=== PATIENT | female | born 1965 | race Caucasian/White ===

== ENCOUNTER 2019-03-19 06:35 | Inpatient (IN) | payer BC ==
[2019-03-19] MEDS ORDERED: Propofol 1,000 MG/100 ML VIAL IV ONE (06:39)
[2019-03-19 06:56] LABS: Actual Bicarbonate (HCO3a) 23.2 mEq/L (22-28); Analyzer IN Cardio ER; Base Excess (BEa) -7.7 mEq/L (-2.0 to +3.0); Calcium, Ionized 1.13 mmol/L (1.12-1.30); Carboxyhemoglobin (COHb) 2.3 gm% (0.0-3.0); Hemoglobin (Hb) 14.3 g/dL (12.0-16.0); O2 Tension (PaO2) 76.9 mmHg (80.0-100.0); Potassium - ABG Lab 4.68 mmol/L (3.70-5.30)
[2019-03-19 07:00] LABS: CO2 Tension 74.2 mmHg (35.0-45.0); Puncture Site RRA; pH, Arterial 7.11 (7.35-7.45)
[2019-03-19] MEDS ORDERED: Albuterol Sulfate 2.5 mg/0.5 ml Neb ONE (07:05)
[2019-03-19] MEDS ORDERED: methylPREDNISolone Sod Succ/PF 125 MG/2 ML VIAL ONE (07:12)
[2019-03-19] MEDS ORDERED: Piperacillin/Tazobactam 4.5 GM VIAL ONE (07:12)
[2019-03-19] MEDS ORDERED: Lorazepam 2 MG/ML VIAL ONE (07:13)
[2019-03-19 07:24] LABS: Mean Corpuscular HGB CONC 32.9 g/dL (32.0-36.0); Mean Corpuscular Hemoglobin 30.2 pg (27.0-31.0); Mean Corpuscular Volume 91.7 fL (78.0-98.0); Mean Platelet Volume 7.8 fL (7.4-10.4); Platelet Count 397 thou/uL (130-400); RBC Distribution Width 13.6 % (11.5-14.5); Red Blood Cell (RBC) Count 4.29 mill/uL (4.20-5.40); White Blood Cell (WBC) Count 25.3 thou/uL (4.8-10.8)
[2019-03-19] MEDS ORDERED: Fentanyl 100 MCG/2 ML VIAL ONE (07:25)
[2019-03-19 07:49] LABS: ALT (SGPT) 41 U/L (8-55); AST (SGOT) 29 U/L (5-34); Albumin 3.9 g/dL (3.5-5.0); Alkaline Phosphatase 124 U/L (40-150); Anion Gap 17 mmol/L (10-20); BUN (Urea Nitrogen) 8 mg/dL (9.8-20.1); Bilirubin, Total 0.6 mg/dL (0.2-1.2); Calc. Creatinine Clearance 0 mL/min (70-130); Carbon Dioxide 19 mmol/L (22-29); Chloride 101 mmol/L (98-107); Estimated GFR-MDRD 75; Glucose 424 mg/dL (70-105); Potassium 5.4 mmol/L (3.5-5.1); Protein, Total 6.9 g/dL (6.0-8.3); Sodium 132 mmol/L (136-145)
[2019-03-19] MEDS ORDERED: Insulin Regular 300 UNITS/3 ML VIAL ONE (08:02)
[2019-03-19 08:05] LABS: Band 10 % (5-11); Lymphocytes 8 % (21-51); MDiff Complete? YES; Monocytes 2 % (0-10); Neutrophil 80 % (42-75); RBC Morphology Normal
[2019-03-19 08:10] LABS: CKMB 5.1 ng/mL (0-6.6)
[2019-03-19 08:10] LABS: Actual Bicarbonate (HCO3a) 21.8 mEq/L (22-28); Analyzer IN Cardio ER; Base Excess (BEa) -7.2 mEq/L (-2.0 to +3.0); CO2 Tension 59.9 mmHg (35.0-45.0); Calcium, Ionized 1.07 mmol/L (1.12-1.30); Carboxyhemoglobin (COHb) 1.8 gm% (0.0-3.0); O2 Tension (PaO2) 80.9 mmHg (80.0-100.0); Potassium - ABG Lab 4.64 mmol/L (3.70-5.30)
[2019-03-19 08:19] LABS: Puncture Site RBA; pH, Arterial 7.18 (7.35-7.45)
[2019-03-19 08:20] LABS: ALV-art Gradient 343.325 (0-20)
--- NOTE | 2019-03-19 08:32 | RAD ---
PORTABLE CHEST: INDICATION: Dyspnea. COMPARISON: 08/06/2012. FINDINGS: ET tube is in position with tip above dayna. There are bilateral confluent alveolar infiltrates see n in both perihilar regions extending into peripheral mid lung burton bilaterally. Vascular congesti on and cardiomegaly. IMPRESSION: Confluent bilateral perihilar alveolar infiltrates. Cardiomegaly and mild vascular congestion. POS: OFF
[2019-03-19 09:47] LABS: Bilirubin Negative (Negative); Blood, Urine Negative (Negative); Clarity Clear (Clear); Glucose, Urine (Dipstick) Greater than 1000 mg/dL (Negative); Leukocyte Negative Leu/uL (Negative); Nitrite Negative (Negative); Protein, Urine (Dipstick) Negative (Neg-Trace); Urobilinogen Normal mg/dL (Less than 2)
[2019-03-19] MEDS ORDERED: SYSTANE 3.5 GM TUBE EA EYE PRN (10:42)
[2019-03-19] MEDS ORDERED: Ventilator Sedation Protocol 1 EACH FS ONE (10:49)
[2019-03-19] MEDS ORDERED: Dextrose 5% in Water 1,000 ML IV PRN (10:51)
[2019-03-19] MEDS ORDERED: Dextrose 50% Abboject 50 ML SYRINGE SLOW IVP PRN (10:51)
[2019-03-19] MEDS ORDERED: cefTRIAXone\\ROCEPHIN 2 GM in Sodium Chloride 0.9% 100 ML IVPB SCH (11:00)
[2019-03-19] MEDS ORDERED: Fentanyl BOLUS 250 ML IVPB PRN (11:07)
[2019-03-19] MEDS ORDERED: DISCONTINUE PREVIOUS NARCOTIC PAIN MEDICATIONS AND BENZODIAZEPINES FS SCH (11:07)
[2019-03-19] MEDS ORDERED: Morphine 2 MG/ML SYRINGE SLOW IVP PRN (11:07)
[2019-03-19] MEDS ORDERED: Propofol BOLUS 1,000 MG/100 ML VIAL IV PRN (11:07)
[2019-03-19] MEDS ORDERED: Vecuronium 10 MG VIAL ONE (11:08)
[2019-03-19] MEDS: Sterile Water 10 ML ONE ×4 (11:09→17:16)
[2019-03-19] MEDS: Azithromycin 500 MG in Sodium Chloride 0.9% 250 ML 250 ML IVPB SCH (12:25)
[2019-03-19] MEDS: Sodium Chloride 0.9% 1,000 ML IV SCH ×4 (12:26→22:12)
[2019-03-19] MEDS: Vecuronium 10 MG VIAL IVP PRN ×4 (13:44→19:30)
--- NOTE | 2019-03-19 13:51 | HP ---
PRIMARY CARE PHYSICIAN: Aditya Irving MD CHIEF COMPLAINT: Shortness of breath. HISTORY OF PRESENT ILLNESS: The patient is a 53-year-old female with asthma, presented to the emergency room by EMS with above complaint. The patient is currently intubated and sedated on mechanical ventilation. History obtained from the review of chart. No family at the bedside. Over the last few days, the patient has worsening shortness of breath. The shortness of breath got worse today. She was recently evaluated by Dr. Irving and was started on some medications. It is unclear whether she was on antibiotics or steroids recently. When EMS arrived, her O2 sats were at 80%. It remained in 90% range en route. However, later on, she desaturated requiring mechanical intubation. There is no recent immobilization or travel reported. In the emergency room, she received IV fluids, vancomycin, 10 units of IV Novolin R, Zosyn, and 125 mg Solu-Medrol along with medications for sedation. PAST MEDICAL HISTORY: 1. Asthma. 2. Hypertension. 3. Endometriosis. 4. History of colonic polyps. 5. Eustachian tube dysfunction. 6. Cholesteatoma. 7. Diabetes mellitus, type 2. 8. Seasonal allergies. PAST SURGICAL HISTORY: 1. Hysterectomy. 2. Tympanostomy tube in the right ear in 2010. 3. Knee surgery. ALLERGIES: THE PATIENT IS ALLERGIC TO ASPIRIN. HOME MEDICATIONS: 1. Tylenol No. 3 as needed. 2. Amitriptyline at bedtime. 3. Singulair daily. 4. Crestor daily. 5. Glimepiride daily. 6. Levemir 25 units daily. All other home medications dosages need to be verified. REVIEW OF SYSTEMS: Cannot be obtained from the patient due to current cognitive status. SOCIAL HISTORY: The patient has a history of smoking. It is unclear how much she smokes. No alcohol or drug use reported. She lives at home with her family. FAMILY HISTORY: Cannot be obtained from the patient due to current cognitive status. PHYSICAL EXAMINATION: VITAL SIGNS: The patient is afebrile with a heart rate of 88, blood pressure of 92/64, respirations of 27, O2 saturation of 98% on mechanical ventilation. GENERAL: A 53-year-old female, intubated and sedated on mechanical ventilation. HEENT: Head, atraumatic and normocephalic. Sclerae are anicteric. Endotracheal tube noted. NECK: Supple. No JVD appreciated. No carotid bruit. LUNGS: Showed expiratory wheezing without any rales or rhonchi. HEART: S1 and S2 present. Regular rate and rhythm. No rubs or gallops. ABDOMEN: Soft. Bowel sounds present. No rebound or guarding. EXTREMITIES: No edema or calf tenderness. NEUROLOGIC: Could not be done due to sedation. PSYCHIATRIC: Could not be done due to sedation. SKIN: Warm and dry. LYMPH NODES: No palpable lymph nodes in the neck. PERIPHERAL VASCULAR: Radial pulse is palpable bilaterally. MUSCULOSKELETAL: No joint swelling or tenderness. DIAGNOSTIC TESTS: 1. EKG by my review showed sinus tachycardia with nonspecific ST-T wave changes. 2. Chest x-ray by my review showed bilateral perihilar alveolar infiltrates. LABORATORY FINDINGS: 1. WBC 25.3, hemoglobin 13, hematocrit 39.4, platelet of 397. 2. ABG showed pH 7.11, pCO2 of 74.2, pO2 of 76.9, bicarbonate 23.2. 3. Sodium 132, potassium 5.4, chloride 101, bicarb 19, BUN 8, creatinine 0.81, glucose of 424. Troponin 0.176. BNP 372. Urinalysis was negative for wbc and bacteria. IMPRESSION: 1. Acute hypoxic and hypercapnic respiratory failure secondary to asthma exacerbation. 2. Sepsis with acute organ dysfunction secondary to pneumonia, suspected pneumococcal. 3. Electrolyte abnormalities including hyponatremia and hyperkalemia. 4. Diabetes mellitus type 2, uncontrolled with diabetic neuropathy. 5. Chronic kidney disease, stage 2. 6. Obesity with a body mass index of 36.8. 7. Hypertension, diet controlled. 8. Chronic pain syndrome. 9. Hyperlipidemia. 10. Elevated troponin secondary to demand ischemia/type 2 myocardial infarction. 11. Metabolic acidosis. PLAN: The patient will be monitored in the intensive care unit. She is currently intubated and sedated on mechanical ventilation. Sedation protocol will be started. We will continue empiric antibiotics for pneumonia. Consult Critical Care. Accu-Cheks every two hourly with Lantus 20 units b.i.d. Mild sliding scale for now. IV fluids. Repeat troponin. We will discuss the plan of care with the family when they arrive. Job ID: [id number]
[2019-03-19] MEDS ORDERED: methylPREDNISolone Sod Succ 40 MG VIAL IVP SCH ×3 (14:00→18:15)
[2019-03-19] MEDS ORDERED: Nitroglycerin 0.4 MG TAB (25 Tab Bottle) PO PRN (14:28)
[2019-03-19] MEDS: Insulin Regular 300 UNITS/3 ML VIAL SC PRN ×3 (14:30→20:50)
[2019-03-19] MEDS: Propofol 1,000 MG/100 ML VIAL IV PRN (14:32)
[2019-03-19 14:47] LABS: CKMB 9.3 ng/mL (0-6.6)
[2019-03-19] MEDS ORDERED: Albumin 25% 100 ML ONE (15:20)
[2019-03-19 16:09] LABS: Actual Bicarbonate (HCO3a) 18.1 mEq/L (22-28); Base Excess (BEa) -7.7 mEq/L (-2.0 to +3.0); CO2 Tension 38.2 mmHg (35.0-45.0); Calcium, Ionized 1.05 mmol/L (1.12-1.30); Carboxyhemoglobin (COHb) 1.5 gm% (0.0-3.0); O2 Tension (PaO2) 87.1 mmHg (80.0-100.0); Potassium - ABG Lab 5.41 mmol/L (3.70-5.30); pH, Arterial 7.29 (7.35-7.45)
[2019-03-19] MEDS: Albumin 25% 25 GM/100 ML BOT IVPB SCH ×2 (16:12→22:12)
[2019-03-19 16:14] LABS: Puncture Site RRA
--- NOTE | 2019-03-19 19:53 | CON ---
DATE OF CONSULTATION: 03/19/2019 HISTORY OF PRESENT ILLNESS: Mrs Edmondson is apparently transferred by EMS to [facility] after EMS was called because of extreme shortness of breath. Her sister arrived a few days back from [place] and says she has been short of breath ever since she got into town. She has been treated recently with antibiotics, and I believe, a short course of steroids. No significant improvement in her clinical symptoms. She reportedly has a history of asthma, but does not have severe asthma, has never been hospitalized with asthma. PAST MEDICAL HISTORY: 1. Remarkable for hypertension, endometriosis, history of colon polyps, history of cholesteatoma, history of diabetes. 2. Status post hysterectomy. 3. History of tympanostomy tube in the right ear in 2010. 4. History of knee surgery. ALLERGIES: SHE REPORTS ASPIRIN INTOLERANCE. SOCIAL HISTORY: She is a smoker, not a daily drinker. Not a drug user. She lives with her at home. FAMILY HISTORY: Negative for lung disease in early age according to family. REVIEW OF SYSTEMS: Ten-point review of systems otherwise negative according to family. She is unable to give a history. PHYSICAL EXAMINATION: VITAL SIGNS: Heart rate this evening is 112, blood pressure 134/87, respiratory rate 30s. She had to be chemically paralyzed. HEENT: Pupils are equal and reactive. NECK: Supple. No lymphadenopathy. LUNGS: Remarkable for rhonchi bilaterally. HEART: Regular rhythm. No S3. ABDOMEN: Soft and nontender. EXTREMITIES: Without clubbing, cyanosis, or edema. NEUROLOGIC: Grossly nonfocal prior to paralytics. DIAGNOSTIC DATA: Chest radiograph shows patchy bilateral alveolar infiltrates. LABORATORY DATA: White count 25.3 at 7 o'clock this morning, hemoglobin 13, platelets 397. Sodium 132, potassium 5.4, chloride 101, bicarb 19, BUN 8, and creatinine 0.81, glucose 424. Glucose at noon was 347 and 337 at 1357 hours. Troponins 0.1 on presentation, 0.9 at about 0130 hours. IMPRESSION: Pneumonia with clinical sepsis. She is being supported with volume resuscitation, albumin, steroids, broad antimicrobial therapy, and nebulizer treatments. Based on my exam at bedside prior to paralytics, she did have a prolonged expiratory phase. I suspect she has some degree of underlying obstructive lung disease and/or asthma. This is not creating a problem with her mechanical ventilation; however, she will need to remain paralyzed probably for a day or two until her clinical condition improves. I met with the family and answered all their questions. They explained to them she would very likely be in the hospital for several weeks at a minimum. I do believe that she will survive this, but also explained that I cannot guarantee that. Critical care time is 45 minutes. Job ID: [id number] MTDD
[2019-03-19] MEDS: Famotidine/PF 20 mg/2ml Vial SLOW IVP SCH (20:38)
[2019-03-19] MEDS: Enoxaparin Sodium 40 MG/0.4 ML SYRINGE SC SCH (20:38)
[2019-03-19] MEDS: Vancomycin HCl 1 GM in Premix Bag 1 BAG IVPB SCH (20:39)
[2019-03-19] MEDS: Famotidine 20 MG TAB PO SCH (20:47)
[2019-03-19] MEDS ORDERED: Insulin Glargine 20 UNITS in Pre-Filled Syringe 1 EACH SC SCH (21:00)
[2019-03-20] MEDS: methylPREDNISolone Sod Succ 40 MG VIAL IVP SCH ×4 (00:15→18:54)
[2019-03-20] MEDS: Insulin Regular 300 UNITS/3 ML VIAL SC PRN ×5 (00:23→21:25)
[2019-03-20] MEDS: Propofol 1,000 MG/100 ML VIAL IV PRN ×3 (02:36→21:24)
[2019-03-20] MEDS: Sodium Chloride 0.9% 1,000 ML IV SCH ×3 (03:59→21:13)
[2019-03-20] MEDS: Albumin 25% 25 GM/100 ML BOT IVPB SCH ×3 (03:59→15:20)
[2019-03-20 06:39] LABS: Band 3 % (5-11); Hemoglobin 9.9 g/dL (12.0-16.0); Lymphocytes 12 % (21-51); MDiff Complete? YES; Mean Corpuscular HGB CONC 32.2 g/dL (32.0-36.0); Mean Corpuscular Hemoglobin 30.2 pg (27.0-31.0); Mean Corpuscular Volume 93.9 fL (78.0-98.0); Mean Platelet Volume 7.8 fL (7.4-10.4); Monocytes 5 % (0-10); Neutrophil 80 % (42-75); Platelet Count 332 thou/uL (130-400); Platelet Morphology Comment Appears Adequate; RBC Distribution Width 13.7 % (11.5-14.5); Red Blood Cell (RBC) Count 3.28 mill/uL (4.20-5.40)
[2019-03-20 06:46] LABS: Actual Bicarbonate (HCO3a) 19.1 mEq/L (22-28); Base Excess (BEa) -5.9 mEq/L (-2.0 to +3.0); CO2 Tension 35.7 mmHg (35.0-45.0); Calcium, Ionized 1.06 mmol/L (1.12-1.30); Carboxyhemoglobin (COHb) 0.9 gm% (0.0-3.0); Hemoglobin (Hb) 10.7 g/dL (12.0-16.0); O2 Tension (PaO2) 94.6 mmHg (80.0-100.0); Potassium - ABG Lab 5.03 mmol/L (3.70-5.30); pH, Arterial 7.35 (7.35-7.45)
[2019-03-20 06:51] LABS: ALT (SGPT) 37 U/L (8-55); AST (SGOT) 32 U/L (5-34); Albumin 3.6 g/dL (3.5-5.0); Alkaline Phosphatase 73 U/L (40-150); Anion Gap 14 mmol/L (10-20); BUN (Urea Nitrogen) 22 mg/dL (9.8-20.1); Bilirubin, Total 0.8 mg/dL (0.2-1.2); Calc. Creatinine Clearance 122 mL/min (70-130); Calcium 7.4 mg/dL (7.8-10.44); Carbon Dioxide 16 mmol/L (22-29); Chloride 110 mmol/L (98-107); Estimated GFR-MDRD 63; Globulin 1.9 g/dL (2.4-3.5); Glucose 231 mg/dL (70-105); Potassium 5.3 mmol/L (3.5-5.1); Protein, Total 5.5 g/dL (6.0-8.3); Sodium 135 mmol/L (136-145)
[2019-03-20 06:55] LABS: ALV-art Gradient 252.925 (0-20); Puncture Site RRA
[2019-03-20 07:18] LABS: CKMB 6.2 ng/mL (0-6.6)
--- NOTE | 2019-03-20 08:29 | RAD ---
RADIOGRAPH CHEST 1 VIEW: DATE: 03/20/2019 TIME: 4:52 AM HISTORY: 53-year-old female in respiratory failure COMPARISON: 03/19/2019 FINDINGS: Endotracheal tube remains with distal tip at mid thoracic trachea. NG tube remains in left upper quad rant of abdomen. Cardiomegaly. Diffuse bilateral pulmonary edema remains. Consolidations in the left perihilar central lung has slightly improved. Smaller consolidation at right apex has improved. Interval development of total silhouetting of the bilateral hemidiaphragms by airspace densities at lung bases and probable pleural effusions IMPRESSION: 1. Severe congestive heart failure: Pulmonary edema and bilateral pleural effusions. 2. New or worsening bilateral pleural effusions and worsening of aeration of the bilateral lung bases since yesterday. 3. Mild interval improvement in the consolidations at the right apex and left perihilar region.
[2019-03-20] MEDS ORDERED: Insulin Glargine 20 UNITS in Pre-Filled Syringe 1 EACH SC SCH (09:00)
[2019-03-20] MEDS ORDERED: cefTRIAXone\\ROCEPHIN 2 GM in Sodium Chloride 0.9% 100 ML IVPB SCH (09:00)
[2019-03-20] MEDS: Famotidine/PF 20 mg/2ml Vial SLOW IVP SCH ×2 (09:22→21:18)
[2019-03-20] MEDS: Vancomycin HCl 1 GM in Premix Bag 1 BAG IVPB SCH (09:23)
[2019-03-20] MEDS: Famotidine 20 MG TAB PO SCH ×2 (09:23→21:19)
[2019-03-20] MEDS: fentaNYL Citrate/PF 2,000 MCG in Sodium Chloride 0.9% 60 ML IV SCH (09:44)
--- NOTE | 2019-03-20 10:58 | PRG ---
DATE OF SERVICE: 03/20/2019 SUBJECTIVE: Patricia Edmondson is intubated on the vent, sedated. OBJECTIVE: VITAL SIGNS: Pulse 96, blood pressure 117/58, and sats 95%. I's and O's; 5087 in and 1065 out. CHEST: Bilateral rhonchi, crackles. CARDIAC: Sinus tach. ABDOMEN: No masses. EXTREMITIES: No edema. LABORATORY DATA: PO2 is 94, pCO2 of 35, pH 7.35, on a rate of 20, 8 of PEEP. White count 16,000, hemoglobin and hematocrit of 9 and 30, platelet count is normal. 80 segs, 3 bands. X-ray shows diffuse pulmonary infiltrates, probably an element of pleural effusion. IMPRESSION: Respiratory failure, morbid obesity, smoker, diabetes, acute respiratory distress syndrome. She is clearly not weanable. I will increase the PEEP to 10. Awaiting report of the echo. BNP is ordered. Broad-spectrum antibiotics, vancomycin, Zithromax, Maxipime, and steroids. One-half hour of critical time. Job ID: [id number]
[2019-03-20] MEDS: Azithromycin 500 MG in Sodium Chloride 0.9% 250 ML 250 ML IVPB SCH (13:09)
[2019-03-20] MEDS ORDERED: Sterile Water 10 ML ONE (14:57)
[2019-03-20] MEDS: Vecuronium 10 MG VIAL IVP PRN (15:03)
--- NOTE | 2019-03-20 19:58 | PRG ---
DATE OF SERVICE: 03/20/2019 SUBJECTIVE: A 53-year-old female with asthma, presented to the emergency room yesterday with shortness of breath. A workup was consistent with respiratory failure requiring mechanical intubation. She was also found to have pneumonia and was started on broad-spectrum antibiotics. The patient is currently intubated and sedated on mechanical ventilation. There were no overnight events except for diminished urine output. No family at the bedside. CURRENT MEDICATIONS: Reviewed. The patient is on; 1. Cefepime. 2. Azithromycin with 20 units of Lantus. 3. IV fluids. 4. Vancomycin. 5. Solu-Medrol. 6. IV Pepcid. Telemetry monitoring by my review showed sinus rhythm. OBJECTIVE: VITAL SIGNS: The patient is afebrile, respiration of 20, pulse rate of 93, blood pressure 101/56, and O2 saturation of 96% on mechanical ventilation. Intake of 2336 and output of 340. GENERAL: A 53-year-old female, intubated and sedated on mechanical ventilation. LUNGS: Showed rales at bilateral bases with scattered rhonchi. There was scattered wheezing as well. No accessory muscle use. HEART: S1 and S2 present. Regular rate and rhythm. No heaves or pulsation. ABDOMEN: Soft. Bowel sounds present. No rebound or guarding. EXTREMITIES: No edema or calf tenderness. LABORATORY FINDINGS: CBC showed WBC of 16 from 25.3, hemoglobin 9.9, and hematocrit 30.8 with 80% neutrophils. ABGs this morning showed pH of 7.35 with pCO2 of 35.7, pO2 of 94.6, and bicarbonate of 19. Chemistry showed sodium 135, potassium 5.3, chloride 110, bicarb 16, BUN 22, and creatinine 0.94. Troponin of 0.942 with CK-MB of 9.3. Urinalysis was negative for wbc and bacteria. Respiratory culture showed few gram-positive cocci. Blood culture negative. Chest x-ray from this morning showed findings consistent with volume overload with bilateral pleural effusions. IMPRESSION: 1. Acute hypoxic and hypercapnic respiratory failure secondary to asthma exacerbation with pneumonia. 2. Sepsis with acute organ dysfunction secondary to pneumonia, suspected pneumococcal. 3. Hyperkalemia. 4. Hyponatremia. 5. Metabolic acidosis. 6. Type 2 myocardial infarction due to increased demand. 7. Diabetes mellitus type 2 with diabetic neuropathy. 8. Chronic kidney disease stage 2. 9. Obesity with a BMI of 36.8. 10. Hypertension. 11. Chronic pain syndrome. 12. Hyperlipidemia. PLAN: The patient will continue mechanical ventilation. She received IV albumin today. We will increase Lantus to 25 units b.i.d. We will continue aggressive sliding scale. We will continue IV steroids. Repeat chest x-ray and ABG in a.m. Continue cefepime, azithromycin, and vancomycin. Monitor vancomycin level. Recheck labs in a.m. Continue DVT and GI prophylaxis. Continue nebulizer treatments. Continue ventilation sedation protocol. Job ID: [id number]
[2019-03-20] MEDS: Cefepime 2 GM in Sodium Chloride 0.9% 100 ML IVPB SCH (21:18)
[2019-03-20] MEDS: Enoxaparin Sodium 40 MG/0.4 ML SYRINGE SC SCH (21:19)
[2019-03-20] MEDS: Insulin Glargine 25 UNITS in Pre-Filled Syringe 1 EACH SC SCH (21:27)
[2019-03-20 21:33] LABS: Vancomycin, Trough 10.1 ug/mL
[2019-03-20] MEDS: Vancomycin HCl 1.5 GM in Sodium Chloride 0.9% 250 ML 300 ML IVPB SCH (21:50)
[2019-03-21] MEDS: fentaNYL Citrate/PF 2,000 MCG in Sodium Chloride 0.9% 60 ML IV SCH ×2 (00:29→15:10)
[2019-03-21] MEDS: methylPREDNISolone Sod Succ 40 MG VIAL IVP SCH ×4 (00:41→17:53)
[2019-03-21] MEDS: Sodium Chloride 0.9% 1,000 ML IV SCH ×2 (00:42→06:22)
[2019-03-21] MEDS: Insulin Regular 300 UNITS/3 ML VIAL SC PRN ×6 (00:48→21:36)
[2019-03-21] MEDS: Propofol 1,000 MG/100 ML VIAL IV PRN ×3 (05:11→17:54)
[2019-03-21 05:15] LABS: Hemoglobin 10.7 g/dL (12.0-16.0); Mean Corpuscular HGB CONC 32.3 g/dL (32.0-36.0); Mean Corpuscular Hemoglobin 30.2 pg (27.0-31.0); Mean Corpuscular Volume 93.5 fL (78.0-98.0); Mean Platelet Volume 7.9 fL (7.4-10.4); Platelet Count 338 thou/uL (130-400); RBC Distribution Width 13.9 % (11.5-14.5); Red Blood Cell (RBC) Count 3.54 mill/uL (4.20-5.40); White Blood Cell (WBC) Count 16.8 thou/uL (4.8-10.8)
[2019-03-21 05:16] LABS: Band 6 % (5-11); Lymphocytes 12 % (21-51); MDiff Complete? YES; Monocytes 9 % (0-10); Neutrophil 73 % (42-75); Phosphorus 3.7 mg/dL (2.3-4.7)
[2019-03-21 05:19] LABS: ALT (SGPT) 167 U/L (8-55); AST (SGOT) 188 U/L (5-34); Albumin 3.5 g/dL (3.5-5.0); Alkaline Phosphatase 57 U/L (40-150); Anion Gap 11 mmol/L (10-20); BUN (Urea Nitrogen) 34 mg/dL (9.8-20.1); Bilirubin, Total 0.6 mg/dL (0.2-1.2); Calc. Creatinine Clearance 106 mL/min (70-130); Calcium 7.9 mg/dL (7.8-10.44); Carbon Dioxide 19 mmol/L (22-29); Chloride 112 mmol/L (98-107); Estimated GFR-MDRD 53; Glucose 211 mg/dL (70-105); Potassium 5.1 mmol/L (3.5-5.1); Protein, Total 5.5 g/dL (6.0-8.3); Sodium 137 mmol/L (136-145)
--- NOTE | 2019-03-21 08:04 | RAD ---
Exam: Chest one view: HISTORY: Shortness of breath, respiratory insufficiency COMPARISON: 03/20/2019 FINDINGS: Endotracheal tube and NG tube remain in place. Minimal cardiomegaly. Bilateral interstitial and alveo lar parenchymal changes more dense and more confluent in the right lung and left base with little change from prior study. Probable right-sided pleural effusion. Continued short-term follow-up. IMPRESSION: Extensive bilateral interstitial and alveolar opacities worse in the right lung and left lower lobe.
[2019-03-21] MEDS: Famotidine/PF 20 mg/2ml Vial SLOW IVP SCH ×2 (09:26→20:57)
[2019-03-21] MEDS: Cefepime 2 GM in Sodium Chloride 0.9% 100 ML IVPB SCH ×2 (09:31→20:56)
[2019-03-21] MEDS: Vancomycin HCl 1.5 GM in Sodium Chloride 0.9% 250 ML 300 ML IVPB SCH ×2 (09:35→22:29)
[2019-03-21] MEDS: Insulin Glargine 25 UNITS in Pre-Filled Syringe 1 EACH SC SCH ×2 (09:45→20:58)
[2019-03-21] MEDS: Famotidine 20 MG TAB PO SCH ×2 (11:53→20:57)
[2019-03-21] MEDS: Azithromycin 500 MG in Sodium Chloride 0.9% 250 ML 250 ML IVPB SCH (11:55)
[2019-03-21] MEDS ORDERED: Sterile Water 10 ML ONE (16:36)
[2019-03-21] MEDS: Vecuronium 10 MG VIAL IVP PRN (16:40)
[2019-03-21] MEDS ORDERED: Sodium Chloride 0.9% 1,000 ML IV SCH ×2 (17:30→20:14)
--- NOTE | 2019-03-21 17:34 | PDOC.PN ---
- Subjective Encounter Start Date: 03/21/19 Encounter Start Time: 16:30 -: non-verbal Patient seen and examined for Resp failure. On Vent. No overnight events - Objective Resuscitation Status - Order Detail: 03/19/19 10:49 Resuscitation Status Routine Resuscitation Status: FULL: Full Resuscitation MAR Reviewed: Yes Vital Signs & Weight: Vital Signs (12 hours) Temp Pulse Resp BP Pulse Ox 03/21/19 14:10 92 113/67 03/21/19 14:09 92 20 97 03/21/19 14:00 20 03/21/19 12:00 20 03/21/19 10:24 86 116/73 03/21/19 10:23 87 18 95 03/21/19 10:00 20 03/21/19 08:00 100.8 F H 20 96 03/21/19 06:40 99 120/63 03/21/19 06:39 95 20 96 03/21/19 06:00 20 Weight Admit Weight 228 lb 2.855 oz Weight 240 lb 4.862 oz Most Recent Monitor Data Heart Rate from ECG 94 NIBP 120/67 NIBP BP-Mean 84 Respiration from ECG 20 SpO2 95 I&O: 03/20/19 03/21/19 03/22/19 06:59 06:59 06:59 Intake Total 5087 4369.2 400 Output Total 1065 975 346 Balance 4022 3394.2 54 Result Diagrams: 03/21/19 04:45 03/21/19 04:45 Additional Labs: Accuchecks 03/21/19 03/21/19 03/21/19 12:15 08:18 04:45 POC Glucose 181 H 187 H 219 H 03/21/19 03/20/19 03/20/19 00:48 21:09 17:42 POC Glucose 225 H 237 H 229 H Radiology Reviewed by me: Yes (CXR - B/L infiltrates) EKG Reviewed by me: Yes (Tele SR) Phys Exam - Physical Examination Constitutional: NAD (Sedated on Vent) Respiratory: no wheezing Bibasilar rales with rhonchi, Symmetrical Cardiovascular: RRR, no rub no heaves/pulsations Gastrointestinal: soft, no distention, positive bowel sounds no rebound/guarding Musculoskeletal: no edema Neuro/Psych - Cannot obtained due to current mentation Skin: no rash Dx/Plan - Plan DVT proph w/lovenox, DVT proph w/SCDs IMPRESSION: 1. Acute hypoxic and hypercapnic respiratory failure secondary to asthma exacerbation with pneumonia. 2. Sepsis with acute organ dysfunction secondary to pneumonia, suspected pneumococcal. 3. New onset CHF. 4. Hyponatremia/Hyperkalemia. 5. Metabolic acidosis. 6. Type 2 myocardial infarction due to increased demand. 7. Diabetes mellitus type 2 with diabetic neuropathy. 8. Chronic kidney disease stage 2. 9. Obesity with a BMI of 36.8. 10. Hypertension. 11. Chronic pain syndrome. 12. Hyperlipidemia. PLAN: Consult Cardiology for new onset CHF Echo reviewed Cont Cefepime/Vancomycin/Azithromycin/IV steroids Cont mechanical ventilation. Cont Lantus to 25 units b.i.d. with aggressive sliding scale. Repeat chest x-ray and ABG in a.m. Continue DVT and GI prophylaxis. Continue nebulizer treatments. Continue ventilation sedation protocol. Review of Systems - Review of Systems Other: Cannot be obtained due to sedation - Medications/Allergies Allergies/Adverse Reactions: Allergies Allergy/AdvReac Type Severity Reaction Status Date / Time asa fillers Allergy Uncoded 03/19/19 11:55 Medications: Current Medications Acetaminophen (Tylenol) 650 mg PO Q4H PRN PRN Reason: Headache/Fever/Mild Pain (1-3) Albuterol/Ipratropium (Duoneb) 3 ml NEB [id number] [facility] Last Admin: 03/21/19 14:09 Dose: 3 ml Bisacodyl (Dulcolax) 10 mg HI DAILYPRN PRN PRN Reason: Constipation Dextrose/Water (Dextrose 50%) 25 gm SLOW IVP PRN PRN PRN Reason: Hypoglycemia Enoxaparin Sodium (Lovenox) 40 mg SC 2100 [facility] Last Admin: 03/20/19 21:19 Dose: 40 mg Famotidine (Pepcid) 20 mg SLOW IVP Q12HR [facility] Last Admin: 03/21/19 09:26 Dose: 20 mg Famotidine (Pepcid) 20 mg PO BID [facility] Last Admin: 03/21/19 11:53 Dose: Not Given Glucagon (Glucagon) 1 mg IM PRN PRN PRN Reason: Hypoglycemia Fentanyl Citrate 2,000 mcg/ (Sodium Chloride) 100 mls @ 0 mls/hr IV INF SHERRY; Protocol Stop: 04/18/19 07:52 Last Admin: 03/21/19 15:10 Dose: 100 mls Azithromycin 500 mg/ Sodium (Chloride) 250 mls @ 250 mls/hr IVPB 1200 [facility] Last Admin: 03/21/19 11:55 Dose: 250 mls Dextrose/Water (D5w) 1,000 mls @ 0 mls/hr IV .Q0M PRN PRN Reason: Hypoglycemia Fentanyl Citrate (Fentanyl Bolus) 250 mls @ 0 mls/hr IVPB PRN PRN PRN Reason: Breakthrough pain/agitation Stop: 04/18/19 11:07 Cefepime HCl 2 gm/ Sodium (Chloride) 100 mls @ 200 mls/hr IVPB Q12HR [facility] Last Admin: 03/21/19 09:31 Dose: 100 mls Insulin Glargine 25 units/ (Miscellaneous Medication) 0.25 mls @ 0 mls/hr SC BID [facility] Last Admin: 03/21/19 09:45 Dose: 0.25 mls Vancomycin HCl 1.5 gm/ Sodium (Chloride) 300 mls @ 200 mls/hr IVPB 1000,2200 [facility] Last Admin: 03/21/19 09:35 Dose: 300 mls Sodium Chloride (Normal Saline 0.9%) 1,000 mls @ 75 mls/hr IV .[id number] [facility] Insulin Human Regular (Humulin R) 0 units SC .AGGRESSIVE SLIDING PRN PRN Reason: Aggressive Correctional Scale Last Admin: 03/21/19 12:14 Dose: 3 unit Lisinopril (Zestril) 2.5 mg PO BID [facility] Lorazepam (Ativan) 2 mg SLOW IVP Q1H PRN PRN Reason: Breakthrough agitation Stop: 04/18/19 11:07 Methylprednisolone Sodium Succinate (Solu-Medrol) 20 mg IVP Q6HR [facility] Last Admin: 03/21/19 11:54 Dose: 20 mg Mineral Oil/White Petrolatum (Systane Nighttime Eye Ointment) 0 gm EA EYE PRN PRN PRN Reason: Dry Eyes Miscellaneous Medication (Pharmacy To Dose) 1 each IVPB PRN PRN PRN Reason: Pharmacy to dose Morphine Sulfate (Morphine) 2 mg SLOW IVP Q1H PRN PRN Reason: BREAKTHROUGH PAIN/Agitation Stop: 04/18/19 11:07 Nitroglycerin (Nitrostat) 0.4 mg PO Q5MIN PRN PRN Reason: Chest Pain Discontinue Previous Narcotic Pain Medications And Benzodiazepines 1 each FS .ONE [facility] Stop: 04/18/19 11:07 Propofol (Diprivan) 1,000 mg IV INF PRN; Protocol PRN Reason: TO ACHIEVE GOAL RASS Stop: 04/18/19 11:07 Last Admin: 03/21/19 11:53 Dose: 1,000 mg Propofol (Diprivan Bolus) 20 mg IV Q5MIN PRN PRN Reason: BREAKTHROUGH AGITATION Stop: 04/18/19 11:07 Rosuvastatin Calcium (Crestor) 5 mg PO HS [facility] Sodium Chloride (Flush - Normal Saline) 10 ml IVF PRN PRN PRN Reason: Saline Flush Last Admin: 03/19/19 19:31 Dose: 10 ml Vecuronium [place] (Norcuron) 10 mg IVP Q1H PRN PRN Reason: SBP >/= 90 [facility] Last Admin: 03/21/19 16:40 Dose: 10 mg
[2019-03-21] MEDS ORDERED: Digoxin 0.5 MG/2 ML AMP SLOW IVP SCH (18:15)
--- NOTE | 2019-03-21 19:46 | CON ---
DATE OF CONSULTATION: HISTORY OF PRESENT ILLNESS: The patient is an unfortunate 53-year-old woman, who presented with respiratory failure. The patient has no known previous cardiac history. She was admitted with pneumonia and emergently intubated. The patient is sedated and unable to give a coherent history. PAST MEDICAL HISTORY: 1. Hypertension. 2. Diabetes mellitus. 3. Dyslipidemia. PAST SURGICAL HISTORY: Hysterectomy, Tympanostomy, and knee surgery. SOCIAL HISTORY: Nonsmoker. ALLERGIES: ASPIRIN INTOLERANT. MEDICATIONS: See nursing list. PHYSICAL EXAMINATION: GENERAL: This is an obese woman, who is sedated with a blood pressure of 146/82 , heart rate is 105. NECK: Showed no jugular venous distention. LUNGS: Have crackles throughout both lung burton. HEART: Regular rate and rhythm. Normal S1 and S2. ABDOMEN: Distended. EXTREMITIES: Showed mild bilateral edema. LABORATORY DATA: Sodium 137, potassium 5.1, chloride 112, bicarb was 19, BUN 34 , creatinine 1.08, glucose 211, AST is 188. Her white blood cell count is 16.8, hemoglobin 10.7, hematocrit 33.7, and her platelets were 338. Her troponin was 0.57 with an MB of 6.2. Her BNP was 388. Her EKG revealed sinus tachycardia with ST -T wave abnormality suggestive of inferior ischemia. Echocardiogram revealed severe decrease in left ventricular systolic function with an estimated ejection fraction of 15% to 20%. Her chest x-ray revealed cardiomegaly with bilateral infiltrates in the right lung and the left lower lung. IMPRESSION: 1. Pneumonia/respiratory failure. 2. Severe cardiomyopathy. 3. Probable type 2 myocardial infarction. 4. Hypertension. 5. Elevated LFTs. 6. Morbid obesity. This patient presents with probable pneumonia with a severe cardiomyopathy. From a cardiac standpoint, she appears to have had a type 2 myocardial infarction with mild elevation in troponin with a severe cardiomyopathy. From a cardiac standpoint, Iwould recommend adding digoxin to slow heart rate. We will start low-dose CROW inhibitor therapy. Continue IV antibiotics. We will follow this patient with you through her hospitalization. This is a critical care note, the time is 60 minutes. Job ID: [id number] MTDD
[2019-03-21] MEDS: Digoxin 0.5 MG/2 ML AMP SLOW IVP SCH ×2 (20:35→22:30)
--- NOTE | 2019-03-21 20:37 | PRG ---
DATE OF SERVICE: 03/21/2019 SUBJECTIVE: Ms. Edmondson appears to be stable. She was seen by Dr. Otto in consultation today. She was found to have a markedly decreased ejection fraction on echocardiogram. She also as mentioned has severe pneumonia. Intake and output are positive 1146. OBJECTIVE: VITAL SIGNS: Heart rates in the 80s, respiratory rate is 20, blood pressure 111/71. LUNGS: Remarkable for rhonchi bilaterally. HEART: Regular rhythm. ABDOMEN: Soft. EXTREMITIES: Without asymmetry or edema. NEUROLOGIC: Grossly nonfocal. She is sedated. LABORATORY DATA: White count 16.8, hemoglobin 10.7, platelets 338. Sodium 137, potassium 5.1, chloride 112, bicarb 19, BUN 34, creatinine 1.08. IMPRESSION: 1. Pneumonia, community-acquired, severe. 2. Underlying chronic obstructive pulmonary disease. 3. Newly diagnosed cardiomyopathy. She will continue broad antimicrobial care. Cardiology input is appreciated. She will probably need KVO or IV fluids at this point. CRITICAL CARE TIME: 30 minutes. Job ID: [id number]
[2019-03-21] MEDS: Enoxaparin Sodium 40 MG/0.4 ML SYRINGE SC SCH (20:57)
[2019-03-21] MEDS: Lisinopril 5 MG TAB PO SCH (20:57)
[2019-03-21] MEDS: Rosuvastatin 5 MG TAB PO SCH (20:58)
[2019-03-21] MEDS: Acetaminophen 325 MG TAB PO PRN (21:37)
[2019-03-21] MEDS: Lorazepam 2 MG/ML VIAL SLOW IVP PRN (22:47)
[2019-03-22] MEDS: Insulin Regular 300 UNITS/3 ML VIAL SC PRN ×6 (00:21→20:44)
[2019-03-22] MEDS: methylPREDNISolone Sod Succ 40 MG VIAL IVP SCH ×4 (00:23→18:15)
[2019-03-22] MEDS: Propofol 1,000 MG/100 ML VIAL IV PRN ×5 (04:01→22:53)
[2019-03-22 04:38] LABS: ALT (SGPT) 322 U/L (8-55); AST (SGOT) 210 U/L (5-34); Albumin 3.3 g/dL (3.5-5.0); Alkaline Phosphatase 55 U/L (40-150); Anion Gap 12 mmol/L (10-20); BUN (Urea Nitrogen) 35 mg/dL (9.8-20.1); Band 3 % (5-11); Bilirubin, Total 0.4 mg/dL (0.2-1.2); Calc. Creatinine Clearance 129 mL/min (70-130); Calcium 7.9 mg/dL (7.8-10.44); Carbon Dioxide 20 mmol/L (22-29); Chloride 112 mmol/L (98-107); Estimated GFR-MDRD 67; Glucose 156 mg/dL (70-105); Hemoglobin 10.8 g/dL (12.0-16.0); Lymphocytes 11 % (21-51); MDiff Complete? YES; Mean Corpuscular HGB CONC 32.6 g/dL (32.0-36.0); Mean Corpuscular Hemoglobin 30.3 pg (27.0-31.0); Mean Corpuscular Volume 92.8 fL (78.0-98.0); Mean Platelet Volume 7.7 fL (7.4-10.4); Monocytes 6 % (0-10); Neutrophil 80 % (42-75); Nucleated RBC 1 % (0); Platelet Count 311 thou/uL (130-400); Platelet Morphology Comment Appears Adequate; Polychromasia SLIGHT = 2-3 cells (100X) (0-2/hpf); Potassium 4.6 mmol/L (3.5-5.1); Protein, Total 5.3 g/dL (6.0-8.3); RBC Distribution Width 13.7 % (11.5-14.5); Red Blood Cell (RBC) Count 3.57 mill/uL (4.20-5.40); Sodium 139 mmol/L (136-145); White Blood Cell (WBC) Count 14.9 thou/uL (4.8-10.8)
[2019-03-22] MEDS: fentaNYL Citrate/PF 2,000 MCG in Sodium Chloride 0.9% 60 ML IV SCH ×2 (04:53→18:21)
[2019-03-22 06:27] LABS: Actual Bicarbonate (HCO3a) 20.6 mEq/L (22-28); Base Excess (BEa) -3.6 mEq/L (-2.0 to +3.0); CO2 Tension 34.4 mmHg (35.0-45.0); Carboxyhemoglobin (COHb) 0.5 gm% (0.0-3.0); Hemoglobin (Hb) 11.7 g/dL (12.0-16.0); O2 Tension (PaO2) 71.7 mmHg (80.0-100.0)
[2019-03-22 06:28] LABS: Calcium, Ionized 1.14 mmol/L (1.12-1.30); Potassium - ABG Lab 4.56 mmol/L (3.70-5.30); Puncture Site RRA
--- NOTE | 2019-03-22 08:45 | RAD ---
RADIOGRAPH CHEST 1 VIEW: DATE: 03/22/2019 TIME: 5:12 AM HISTORY: Respiratory failure in 53-year-old female COMPARISON: 03/21/2019 5:02 AM FINDINGS: Endotracheal tube and esophagogastric tube remain. Diffuse bilateral interstitial infiltrates remain. No pneumothorax. No interval change. IMPRESSION: 1. No interval change. 2. Evidence for bilateral pulmonary edema.
[2019-03-22] MEDS: Famotidine/PF 20 mg/2ml Vial SLOW IVP SCH ×2 (09:02→20:44)
[2019-03-22] MEDS: Famotidine 20 MG TAB PO SCH ×2 (09:05→20:44)
[2019-03-22] MEDS: Digoxin 0.5 MG/2 ML AMP SLOW IVP SCH (09:06)
[2019-03-22] MEDS: Cefepime 2 GM in Sodium Chloride 0.9% 100 ML IVPB SCH ×2 (09:07→20:43)
[2019-03-22] MEDS: Lisinopril 5 MG TAB PO SCH ×2 (09:08→20:45)
[2019-03-22] MEDS: Insulin Glargine 25 UNITS in Pre-Filled Syringe 1 EACH SC SCH ×2 (09:25→20:46)
[2019-03-22 09:27] LABS: Vancomycin, Trough 18.6 ug/mL
[2019-03-22] MEDS: Acetaminophen 325 MG TAB PO PRN ×2 (09:48→16:11)
[2019-03-22] MEDS: Lorazepam 2 MG/ML VIAL SLOW IVP PRN ×4 (09:52→23:26)
[2019-03-22] MEDS: Vancomycin HCl 1.5 GM in Sodium Chloride 0.9% 250 ML 300 ML IVPB SCH ×2 (11:57→22:15)
[2019-03-22] MEDS: Vecuronium 10 MG VIAL IVP PRN ×3 (13:28→18:47)
[2019-03-22] MEDS: Azithromycin 500 MG in Sodium Chloride 0.9% 250 ML 250 ML IVPB SCH (14:01)
[2019-03-22] MEDS ORDERED: Furosemide 40 MG/4 ML VIAL SLOW IVP SCH (14:45)
[2019-03-22] MEDS: Sodium Chloride 0.9% 1,000 ML IV SCH (15:21)
--- NOTE | 2019-03-22 15:27 | PRG ---
DATE OF SERVICE: 03/22/2019 SUBJECTIVE: Ms. Doe remains mechanically ventilated. She is intermittently requiring paralytics and sedation supplements. OBJECTIVE: VITAL SIGNS: Her blood pressure is 115/58, heart rate is 94, respiratory rate is 16, oximetry is in 90s. Intake and output are positive 971. LUNGS: Remarkable for rhonchi anteriorly. HEART: Regular rhythm. S1 and S2 are normal. ABDOMEN: Soft and nontender. EXTREMITIES: Without asymmetry. LABORATORY DATA: White count 14.9, hemoglobin 10.8, platelets 311. Sodium 139, potassium 4.6, chloride 112, bicarb 20, BUN 35, creatinine 0.89. IMPRESSION AND PLAN: 1. Pneumonia combined with cardiogenic and noncardiogenic pulmonary edema. 2. Respiratory failure, not weanable. 3. Underlying chronic obstructive pulmonary disease. 4. Systolic cardiomyopathy, that is new. 5. Continue antimicrobial therapy and begin to diurese her. Critical care time is 35 minutes. Job ID: [id number] MTDD
--- NOTE | 2019-03-22 16:45 | PDOC.PN ---
- Subjective Encounter Start Date: 03/22/19 Encounter Start Time: 02:00 Intubated, sedated. - Objective Resuscitation Status - Order Detail: 03/19/19 10:49 Resuscitation Status Routine Resuscitation Status: FULL: Full Resuscitation Vital Signs & Weight: Vital Signs (12 hours) Temp Pulse Resp BP Pulse Ox 03/22/19 15:44 93 121/74 03/22/19 14:09 94 115/58 L 03/22/19 14:00 16 03/22/19 12:50 93 03/22/19 12:00 100.0 F H 16 03/22/19 11:15 81 140/71 03/22/19 10:00 16 03/22/19 09:21 75 03/22/19 09:08 74 128/70 03/22/19 09:06 74 03/22/19 08:00 16 94 L 03/22/19 07:13 74 124/83 03/22/19 07:00 101.1 F H 03/22/19 06:00 20 Weight Admit Weight 228 lb 2.855 oz Weight 240 lb 4.8 oz Most Recent Monitor Data Heart Rate from ECG 97 NIBP 122/66 NIBP BP-Mean 84 Respiration from ECG 16 SpO2 94 I&O: 03/21/19 03/22/19 03/23/19 06:59 06:59 06:59 Intake Total 4369.2 2801.2 480 Output Total 975 1830 1165 Balance 3394.2 971.2 -685 Result Diagrams: 03/22/19 04:05 03/22/19 04:05 Additional Labs: Accuchecks 03/22/19 03/22/19 03/22/19 16:15 12:12 08:14 POC Glucose 177 H 154 H 168 H 03/22/19 03/22/19 03/21/19 04:01 00:22 21:29 POC Glucose 174 H 155 H 170 H 03/21/19 17:57 POC Glucose 171 H Phys Exam - Physical Examination Constitutional: NAD Intubated, sedated. Still with poor air exchange even on the vent. Very tight. Cardiovascular: RRR, no significant murmur Gastrointestinal: soft, non-tender, no distention, positive bowel sounds Musculoskeletal: no edema sedated Skin: normal turgor Dx/Plan (1) Acute respiratory failure with hypoxia Code(s): J96.01 - ACUTE RESPIRATORY FAILURE WITH HYPOXIA Status: Acute (2) Pneumonia Code(s): J18.9 - PNEUMONIA, UNSPECIFIED ORGANISM Status: Acute (3) Acute systolic heart failure Code(s): I50.21 - ACUTE SYSTOLIC (CONGESTIVE) HEART FAILURE Status: Acute (4) Cardiomyopathy Code(s): I42.9 - CARDIOMYOPATHY, UNSPECIFIED Status: Acute (5) Diabetes mellitus Code(s): E11.9 - TYPE 2 DIABETES MELLITUS WITHOUT COMPLICATIONS Status: Acute (6) NSTEMI (non-ST elevated myocardial infarction) Code(s): I21.4 - NON-ST ELEVATION (NSTEMI) MYOCARDIAL INFARCTION Status: Acute (7) CKD (chronic kidney disease), stage II Code(s): N18.2 - CHRONIC KIDNEY DISEASE, STAGE 2 (MILD) Status: Acute (8) HTN (hypertension) Code(s): I10 - ESSENTIAL (PRIMARY) HYPERTENSION Status: Acute (9) Obesities, morbid Code(s): E66.01 - MORBID (SEVERE) OBESITY DUE TO EXCESS CALORIES Status: Acute (10) HLD (hyperlipidemia) Code(s): E78.5 - HYPERLIPIDEMIA, UNSPECIFIED Status: Acute (11) Chronic pain Code(s): G89.29 - OTHER CHRONIC PAIN Status: Acute (12) Hyponatremia Code(s): E87.1 - HYPO-OSMOLALITY AND HYPONATREMIA Status: Acute - Plan * Continue vent support. * Continue IV abx. * Continue diuresis for CHF with volume overload. * Pulm, Cards following.
[2019-03-22] MEDS: Enoxaparin Sodium 40 MG/0.4 ML SYRINGE SC SCH (20:43)
[2019-03-22] MEDS: Rosuvastatin 5 MG TAB PO SCH (20:46)
[2019-03-23] MEDS: methylPREDNISolone Sod Succ 40 MG VIAL IVP SCH ×5 (00:12→23:34)
[2019-03-23] MEDS: Insulin Regular 300 UNITS/3 ML VIAL SC PRN ×5 (00:13→17:44)
[2019-03-23] MEDS: Vecuronium 10 MG VIAL IVP PRN ×3 (03:32→15:26)
[2019-03-23] MEDS: Propofol 1,000 MG/100 ML VIAL IV PRN ×5 (05:34→23:34)
[2019-03-23 06:01] LABS: ALT (SGPT) 306 U/L (8-55); AST (SGOT) 120 U/L (5-34); Albumin 3.4 g/dL (3.5-5.0); Alkaline Phosphatase 53 U/L (40-150); Anion Gap 11 mmol/L (10-20); BUN (Urea Nitrogen) 30 mg/dL (9.8-20.1); Band 4 % (5-11); Bilirubin, Total 0.4 mg/dL (0.2-1.2); Calc. Creatinine Clearance 146 mL/min (70-130); Carbon Dioxide 23 mmol/L (22-29); Chloride 108 mmol/L (98-107); Estimated GFR-MDRD 78; Globulin 2.1 g/dL (2.4-3.5); Glucose 213 mg/dL (70-105); Hemoglobin 10.6 g/dL (12.0-16.0); Lymphocytes 7 % (21-51); MDiff Complete? YES; Mean Corpuscular HGB CONC 31.9 g/dL (32.0-36.0); Mean Corpuscular Hemoglobin 29.6 pg (27.0-31.0); Mean Corpuscular Volume 92.6 fL (78.0-98.0); Mean Platelet Volume 8.1 fL (7.4-10.4); Monocytes 7 % (0-10); Neutrophil 82 % (42-75); Platelet Count 315 thou/uL (130-400); Platelet Morphology Comment Appears Adequate; Polychromasia SLIGHT = 2-3 cells (100X) (0-2/hpf); Potassium 4.6 mmol/L (3.5-5.1); Protein, Total 5.5 g/dL (6.0-8.3); RBC Distribution Width 13.9 % (11.5-14.5); Sodium 137 mmol/L (136-145); White Blood Cell (WBC) Count 13.7 thou/uL (4.8-10.8)
[2019-03-23 06:44] LABS: Actual Bicarbonate (HCO3a) 24.2 mEq/L (22-28); Base Excess (BEa) -1.3 mEq/L (-2.0 to +3.0); CO2 Tension 43.8 mmHg (35.0-45.0); Carboxyhemoglobin (COHb) 0.7 gm% (0.0-3.0); Hemoglobin (Hb) 11.5 g/dL (12.0-16.0); O2 Tension (PaO2) 78.3 mmHg (80.0-100.0); pH, Arterial 7.36 (7.35-7.45)
[2019-03-23 06:45] LABS: Calcium, Ionized 1.15 mmol/L (1.12-1.30); Puncture Site RRA
[2019-03-23] MEDS: fentaNYL Citrate/PF 2,000 MCG in Sodium Chloride 0.9% 60 ML IV SCH ×2 (07:54→20:49)
--- NOTE | 2019-03-23 08:54 | RAD ---
XR Chest 1 View Portable History: Ventilated patient Comparison: Radiograph prior day Findings: Endotracheal tube tip sits at the level of the clavicles. Enteric tube tip within the gastr ic body. Large layering effusions are similar. Moderate edema is similar. Heart size is enlarged. Atelectatic changes throughout the lungs. No pneumothorax. Impression: Similar examination.
[2019-03-23] MEDS: Furosemide 40 MG/4 ML VIAL SLOW IVP SCH (09:13)
[2019-03-23] MEDS: Cefepime 2 GM in Sodium Chloride 0.9% 100 ML IVPB SCH ×2 (09:14→20:38)
[2019-03-23] MEDS: Spironolactone 25 MG TAB PO SCH (09:14)
[2019-03-23] MEDS: Famotidine 20 MG TAB PO SCH ×2 (09:15→20:57)
[2019-03-23] MEDS: Lisinopril 5 MG TAB PO SCH ×2 (09:15→20:38)
[2019-03-23] MEDS: Acetaminophen 325 MG TAB PO PRN (09:15)
[2019-03-23] MEDS: Famotidine/PF 20 mg/2ml Vial SLOW IVP SCH ×2 (09:15→20:38)
[2019-03-23] MEDS: Insulin Glargine 25 UNITS in Pre-Filled Syringe 1 EACH SC SCH ×2 (09:36→20:39)
[2019-03-23] MEDS: Vancomycin HCl 1.5 GM in Sodium Chloride 0.9% 250 ML 300 ML IVPB SCH ×2 (09:47→22:33)
[2019-03-23] MEDS: Digoxin 0.5 MG/2 ML AMP SLOW IVP SCH (09:47)
[2019-03-23] MEDS ORDERED: Sterile Water 10 ML ONE ×2 (09:51→15:17)
[2019-03-23] MEDS: Azithromycin 500 MG in Sodium Chloride 0.9% 250 ML 250 ML IVPB SCH (13:37)
--- NOTE | 2019-03-23 15:48 | PRG ---
DATE OF SERVICE: 03/23/2019 SUBJECTIVE: Ms. Edmondson is clinically stable. She gets dyssynchronous with ventilation, intermittently requires paralytics. OBJECTIVE: VITAL SIGNS: She is afebrile. Heart rate is 74, blood pressure 113/64, respiratory rate 16. HEAD AND NECK: Unchanged. LUNGS: Distant, clear. HEART: Regular rhythm. ABDOMEN: Soft and nontender. EXTREMITIES: Without asymmetry. Intake and outputs; negative, 1913. LABORATORY DATA: White count 13.7, hemoglobin 10.6, platelets 315,000. Sodium 137, potassium 4.6, chloride 108, bicarb 23, BUN 30, creatinine 0.7, glucose 213. PH of 7.36, pCO2 of 43, pO2 of 78. IMPRESSION: 1. Respiratory failure secondary primarily to pneumonia. 2. Chronic obstructive pulmonary disease with an ongoing prolonged expiratory phase. 3. Newly diagnosed cardiomyopathy. It is unclear whether or not this is ischemic or related to her sepsis. 4. Tobacco use until this admission. 5. Ongoing pulmonary edema. Recommend continuing diuresis, antimicrobial therapy as well as nebulizer treatments and respiratory care. I have not seen family at the bedside since the day she was admitted. We will continue with supportive care. Job ID: [id number]
--- NOTE | 2019-03-23 16:12 | PDOC.PN ---
- Subjective Encounter Start Date: 03/23/19 Encounter Start Time: 14:45 -: non-verbal - Objective Resuscitation Status - Order Detail: 03/19/19 10:49 Resuscitation Status Routine Resuscitation Status: FULL: Full Resuscitation Vital Signs & Weight: Vital Signs (12 hours) Temp Pulse Resp BP Pulse Ox 03/23/19 15:53 79 03/23/19 14:26 74 113/64 03/23/19 14:00 16 03/23/19 12:49 75 03/23/19 12:00 99.9 F H 16 03/23/19 10:58 75 130/76 03/23/19 10:00 16 03/23/19 09:47 78 03/23/19 09:15 85 120/74 03/23/19 08:00 16 03/23/19 07:42 74 119/64 03/23/19 07:22 16 93 L 03/23/19 07:00 99.9 F H 03/23/19 06:00 16 Weight Admit Weight 228 lb 2.855 oz Weight 239 lb 10.279 oz Most Recent Monitor Data Heart Rate from ECG 74 NIBP 119/64 NIBP BP-Mean 82 Respiration from ECG 16 SpO2 95 I&O: 03/22/19 03/23/19 03/24/19 06:59 06:59 06:59 Intake Total 2801.2 2227.0 740 Output Total 1830 4140 1989 Balance 971.2 -1913.0 -1250 Result Diagrams: 03/23/19 05:19 03/23/19 05:19 Additional Labs: Accuchecks 03/23/19 03/23/19 03/23/19 13:25 09:01 03:57 POC Glucose 265 H 232 H 215 H 03/23/19 03/22/19 03/22/19 00:10 20:06 16:15 POC Glucose 180 H 183 H 177 H Phys Exam - Physical Examination Constitutional: NAD Obese. Intubated, sedated. Scattered rales, but much improved air exchange from yesterday. Cardiovascular: RRR, no significant murmur Gastrointestinal: soft, no distention, positive bowel sounds Trace edema BLE's. Sedated. Dx/Plan (1) Acute respiratory failure with hypoxia Code(s): J96.01 - ACUTE RESPIRATORY FAILURE WITH HYPOXIA Status: Acute (2) Pneumonia Code(s): J18.9 - PNEUMONIA, UNSPECIFIED ORGANISM Status: Acute (3) Acute systolic heart failure Code(s): I50.21 - ACUTE SYSTOLIC (CONGESTIVE) HEART FAILURE Status: Acute (4) Cardiomyopathy Code(s): I42.9 - CARDIOMYOPATHY, UNSPECIFIED Status: Acute (5) Diabetes mellitus Code(s): E11.9 - TYPE 2 DIABETES MELLITUS WITHOUT COMPLICATIONS Status: Acute (6) NSTEMI (non-ST elevated myocardial infarction) Code(s): I21.4 - NON-ST ELEVATION (NSTEMI) MYOCARDIAL INFARCTION Status: Acute Comment: Type II (7) CKD (chronic kidney disease), stage II Code(s): N18.2 - CHRONIC KIDNEY DISEASE, STAGE 2 (MILD) Status: Acute (8) HTN (hypertension) Code(s): I10 - ESSENTIAL (PRIMARY) HYPERTENSION Status: Acute (9) Obesities, morbid Code(s): E66.01 - MORBID (SEVERE) OBESITY DUE TO EXCESS CALORIES Status: Acute (10) HLD (hyperlipidemia) Code(s): E78.5 - HYPERLIPIDEMIA, UNSPECIFIED Status: Acute (11) Chronic pain Code(s): G89.29 - OTHER CHRONIC PAIN Status: Acute (12) Hyponatremia Code(s): E87.1 - HYPO-OSMOLALITY AND HYPONATREMIA Status: Acute - Plan * Pulm, Cards following. * Continue abx for infectious pneumonia. * Continue diuresis for decompensated CHF. * Newly diagnosed cardiomyopathy. Possibly takotsubo secondary to sepsis. May need repeat echo at some point soon. * Per nurse, diuresing well now. * Continue vent support.
[2019-03-23] MEDS: Enoxaparin Sodium 40 MG/0.4 ML SYRINGE SC SCH (20:38)
[2019-03-23] MEDS: Rosuvastatin 5 MG TAB PO SCH (20:39)
[2019-03-23 22:24] LABS: Vancomycin, Trough 14.9 ug/mL
[2019-03-24] MEDS: Lorazepam 2 MG/ML VIAL SLOW IVP PRN (00:01)
[2019-03-24] MEDS: Insulin Regular 300 UNITS/3 ML VIAL SC PRN ×5 (00:07→18:17)
[2019-03-24] MEDS: Vecuronium 10 MG VIAL IVP PRN (02:52)
[2019-03-24 04:52] LABS: ALT (SGPT) 214 U/L (8-55); AST (SGOT) 41 U/L (5-34); Albumin 3.3 g/dL (3.5-5.0); Alkaline Phosphatase 48 U/L (40-150); Anion Gap 10 mmol/L (10-20); BUN (Urea Nitrogen) 30 mg/dL (9.8-20.1); Bilirubin, Total 0.4 mg/dL (0.2-1.2); Calc. Creatinine Clearance 154 mL/min (70-130); Calcium 8.1 mg/dL (7.8-10.44); Carbon Dioxide 27 mmol/L (22-29); Chloride 104 mmol/L (98-107); Estimated GFR-MDRD 83; Globulin 2.1 g/dL (2.4-3.5); Glucose 262 mg/dL (70-105); Potassium 4.7 mmol/L (3.5-5.1); Protein, Total 5.4 g/dL (6.0-8.3); Sodium 136 mmol/L (136-145)
[2019-03-24 04:58] LABS: Hemoglobin 11.2 g/dL (12.0-16.0); Red Blood Cell (RBC) Count 3.68 mill/uL (4.20-5.40); White Blood Cell (WBC) Count 11.6 thou/uL (4.8-10.8)
[2019-03-24 04:59] LABS: Lymphocytes 7 % (21-51); MDiff Complete? YES; Mean Corpuscular HGB CONC 32.7 g/dL (32.0-36.0); Mean Corpuscular Hemoglobin 30.3 pg (27.0-31.0); Mean Corpuscular Volume 92.5 fL (78.0-98.0); Mean Platelet Volume 7.8 fL (7.4-10.4); Monocytes 6 % (0-10); Neutrophil 87 % (42-75); Nucleated RBC 1 % (0); Platelet Count 305 thou/uL (130-400); RBC Distribution Width 13.6 % (11.5-14.5)
[2019-03-24] MEDS: Propofol 1,000 MG/100 ML VIAL IV PRN ×3 (04:59→19:38)
[2019-03-24] MEDS: methylPREDNISolone Sod Succ 40 MG VIAL IVP SCH ×4 (05:00→23:26)
[2019-03-24 06:31] LABS: Actual Bicarbonate (HCO3a) 25.2 mEq/L (22-28); Base Excess (BEa) 0.5 mEq/L (-2.0 to +3.0); CO2 Tension 40.9 mmHg (35.0-45.0); Carboxyhemoglobin (COHb) 0.9 gm% (0.0-3.0); Hemoglobin (Hb) 11.7 g/dL (12.0-16.0); O2 Tension (PaO2) 70.1 mmHg (80.0-100.0); pH, Arterial 7.41 (7.35-7.45)
[2019-03-24 06:32] LABS: ALV-art Gradient 161.975 (0-20); Calcium, Ionized 1.15 mmol/L (1.12-1.30); Puncture Site RRA
--- NOTE | 2019-03-24 08:10 | RAD ---
EXAM: Chest one view: HISTORY: Respiratory insufficiency COMPARISON: 03/23/2019 FINDINGS: NG tube and endotracheal tubes remain in place. Heart size: Enlarged. Lungs: Extensive bilateral interstitial and alveolar parenchymal changes evidence for edema. Probable small pleural effusions. Stable from prior study. IMPRESSION: Evidence for cardiomegaly, vascular congestion, edema, and pleural effusions.
[2019-03-24] MEDS: Cefepime 2 GM in Sodium Chloride 0.9% 100 ML IVPB SCH ×2 (09:21→20:52)
[2019-03-24] MEDS: Lisinopril 5 MG TAB PO SCH ×2 (09:23→20:54)
[2019-03-24] MEDS: Spironolactone 25 MG TAB PO SCH (09:23)
[2019-03-24] MEDS: Furosemide 40 MG/4 ML VIAL SLOW IVP SCH ×2 (09:24→14:06)
[2019-03-24] MEDS: Famotidine 20 MG TAB PO SCH ×2 (09:24→22:17)
[2019-03-24] MEDS: Vancomycin HCl 1.5 GM in Sodium Chloride 0.9% 250 ML 300 ML IVPB SCH ×2 (09:24→22:16)
[2019-03-24] MEDS: Digoxin 0.5 MG/2 ML AMP SLOW IVP SCH (09:26)
[2019-03-24] MEDS: Famotidine/PF 20 mg/2ml Vial SLOW IVP SCH ×2 (09:29→20:53)
[2019-03-24] MEDS: Insulin Glargine 25 UNITS in Pre-Filled Syringe 1 EACH SC SCH (09:43)
[2019-03-24] MEDS: fentaNYL Citrate/PF 2,000 MCG in Sodium Chloride 0.9% 60 ML IV SCH ×2 (10:25→23:19)
--- NOTE | 2019-03-24 10:27 | PRG ---
DATE OF SERVICE: 03/24/2019 SUBJECTIVE: Ms. Edmondson remains today for mechanical ventilation. OBJECTIVE: VITAL SIGNS: Heart rate in the 60s, blood pressure 135/77, respiratory rates in the teens. Intake and output negative 1052. LUNGS: Remarkable for mild rhonchi bilaterally. HEART: Regular rhythm. ABDOMEN: Soft, nontender. EXTREMITIES: Without asymmetry. She is tolerating her tube feeds. NEURO: Grossly nonfocal when she is not sedated. LABORATORY DATA: White count 11.6, hemoglobin 11.2, platelets 305. Electrolytes are unremarkable. BUN is 30, glucoses are mostly over 200. AST is 41, ALT is 214, albumin is 3.3. IMPRESSION: 1. Pneumonia. 2. Mixture of noncardiogenic and cardiogenic pulmonary edema. We will continue with attempts at diuresis. 3. Respiratory failure. 4. Underlying probable severe chronic obstructive pulmonary disease. 5. Tobacco use up until admission. 6. Liver enzyme elevation, likely secondary to hepatic congestion. Chest radiograph still shows pulmonary edema. We will continue with mechanical ventilation. Gradually decreasing support. Given her multi organ illness, it will likely be quite some time before she is a candidate for extubation. Critical care time is 35 minutes. Job ID: [id number] MTDD
[2019-03-24] MEDS: Azithromycin 500 MG in Sodium Chloride 0.9% 250 ML 250 ML IVPB SCH (12:32)
--- NOTE | 2019-03-24 20:37 | PDOC.PN ---
- Subjective Encounter Start Date: 03/24/19 Encounter Start Time: 19:00 -: non-verbal Patient seen and examined for resp failure. on [facility] Vent. No overnight events - Objective Resuscitation Status - Order Detail: 03/19/19 10:49 Resuscitation Status Routine Resuscitation Status: FULL: Full Resuscitation MAR Reviewed: Yes Vital Signs & Weight: Vital Signs (12 hours) Temp Pulse Resp BP 03/24/19 18:15 63 03/24/19 18:00 16 03/24/19 16:00 99.2 F 16 03/24/19 14:55 66 127/72 03/24/19 14:00 16 03/24/19 12:44 66 03/24/19 12:00 99.5 F 16 03/24/19 11:00 66 145/65 H 03/24/19 10:00 16 03/24/19 09:26 67 03/24/19 09:23 67 135/77 Weight Admit Weight 228 lb 2.855 oz Weight 236 lb 12.423 oz Most Recent Monitor Data Heart Rate from ECG 64 NIBP 119/61 NIBP BP-Mean 80 Respiration from ECG 16 SpO2 92 I&O: 03/23/19 03/24/19 03/25/19 06:59 06:59 06:59 Intake Total 2227.0 2992.5 2050.4 Output Total 4140 4045 4250 Balance -1913.0 -1052.5 -2199.6 Result Diagrams: 03/24/19 04:00 03/24/19 04:00 Additional Labs: Accuchecks 03/24/19 03/24/19 03/24/19 16:14 11:53 09:33 POC Glucose 212 H 240 H 254 H 03/24/19 03/24/19 03/23/19 04:03 00:08 20:20 POC Glucose 272 H 200 H 195 H EKG Reviewed by me: Yes (Tele SR) Phys Exam - Physical Examination Constitutional: NAD (on Vent) Respiratory: no wheezing Scat rhonchi, Dec AE at bases Cardiovascular: RRR, no rub Gastrointestinal: soft, positive bowel sounds Dx/Plan - Plan DVT proph w/lovenox, DVT proph w/SCDs IMPRESSION: 1. Acute hypoxic and hypercapnic respiratory failure secondary to asthma exacerbation with pneumonia/CHF exacerbation. 2. Sepsis with acute organ dysfunction secondary to pneumonia, suspected pneumococcal. 3. New onset CHF - systolic with exacerbation 4. Hyponatremia/Hyperkalemia. 5. Metabolic acidosis. 6. Type 2 myocardial infarction due to increased demand. 7. Diabetes mellitus type 2 with diabetic neuropathy. 8. Chronic kidney disease stage 2. 9. Obesity with a BMI of 36.8. 10. Hypertension. 11. Chronic pain syndrome. 12. Hyperlipidemia. PLAN: Cont IV diuretics with ACEI/Aldactone Cont Cefepime/Vancomycin/Azithromycin/IV steroids Increase Lantus to 30 units b.i.d. Cont aggressive sliding scale. Repeat chest x-ray in a.m. AM labs Continue nebulizer treatments. Continue ventilation sedation protocol. Continue DVT and GI prophylaxis. Review of Systems - Review of Systems Other: Cannot obtain due to current mentation - Medications/Allergies Allergies/Adverse Reactions: Allergies Allergy/AdvReac Type Severity Reaction Status Date / Time asa fillers Allergy Uncoded 03/19/19 11:55 Medications: Current Medications Acetaminophen (Tylenol) 650 mg PO Q4H PRN PRN Reason: Headache/Fever/Mild Pain (1-3) Last Admin: 03/23/19 09:15 Dose: 650 mg Albuterol/Ipratropium (Duoneb) 3 ml NEB [id number] [facility] Last Admin: 03/24/19 18:14 Dose: 3 ml Bisacodyl (Dulcolax) 10 mg [place] DAILYPRN PRN PRN Reason: Constipation Dextrose/Water (Dextrose 50%) 25 gm SLOW IVP PRN PRN PRN Reason: Hypoglycemia Digoxin (Lanoxin) 0.25 mg SLOW IVP DAILY [facility] Last Admin: 03/24/19 09:26 Dose: 0.25 mg Enoxaparin Sodium (Lovenox) 40 mg SC 2100 [facility] Last Admin: 03/23/19 20:38 Dose: 40 mg Famotidine (Pepcid) 20 mg SLOW IVP Q12HR [facility] Last Admin: 03/24/19 09:29 Dose: Not Given Famotidine (Pepcid) 20 mg PO BID [facility] Last Admin: 03/24/19 09:24 Dose: 20 mg Furosemide (Lasix) 40 mg SLOW IVP 0600,1400 [facility] Last Admin: 03/24/19 14:06 Dose: 40 mg Glucagon (Glucagon) 1 mg IM PRN PRN PRN Reason: Hypoglycemia Fentanyl Citrate 2,000 mcg/ (Sodium Chloride) 100 mls @ 0 mls/hr IV INF [facility]; Protocol Stop: 04/18/19 07:52 Last Admin: 03/24/19 10:25 Dose: 100 mls Azithromycin 500 mg/ Sodium (Chloride) 250 mls @ 250 mls/hr IVPB 1200 [facility] Last Admin: 03/24/19 12:32 Dose: 250 mls Dextrose/Water (D5w) 1,000 mls @ 0 mls/hr IV .Q0M PRN PRN Reason: Hypoglycemia Fentanyl Citrate (Fentanyl Bolus) 250 mls @ 0 mls/hr IVPB PRN PRN PRN Reason: Breakthrough pain/agitation Stop: 04/18/19 11:07 Cefepime HCl 2 gm/ Sodium (Chloride) 100 mls @ 200 mls/hr IVPB Q12HR [facility] Last Admin: 03/24/19 09:21 Dose: 100 mls Insulin Glargine 25 units/ (Miscellaneous Medication) 0.25 mls @ 0 mls/hr SC BID [facility] Last Admin: 03/24/19 09:43 Dose: 0.25 mls Vancomycin HCl 1.5 gm/ Sodium (Chloride) 300 mls @ 200 mls/hr IVPB 1000,2200 [facility] Last Admin: 03/24/19 09:24 Dose: 300 mls Sodium Chloride (Normal Saline 0.9%) 1,000 mls @ 0 mls/hr IV .Q0M [facility] Insulin Human Regular (Humulin R) 0 units SC .AGGRESSIVE SLIDING PRN PRN Reason: Aggressive Correctional Scale Last Admin: 03/24/19 18:17 Dose: 6 unit Lisinopril (Zestril) 5 mg PO BID [facility] Last Admin: 03/24/19 09:23 Dose: 5 mg Lorazepam (Ativan) 2 mg SLOW IVP Q1H PRN PRN Reason: Breakthrough agitation Stop: 04/18/19 11:07 Last Admin: 03/24/19 00:01 Dose: 2 mg Methylprednisolone Sodium Succinate (Solu-Medrol) 20 mg IVP Q6HR [facility] Last Admin: 03/24/19 18:15 Dose: 20 mg Mineral Oil/White Petrolatum (Systane Nighttime Eye Ointment) 0 gm EA EYE PRN PRN PRN Reason: Dry Eyes Miscellaneous Medication (Pharmacy To Dose) 1 each IVPB PRN PRN PRN Reason: Pharmacy to dose Morphine Sulfate (Morphine) 2 mg SLOW IVP Q1H PRN PRN Reason: BREAKTHROUGH PAIN/Agitation Stop: 04/18/19 11:07 Nitroglycerin (Nitrostat) 0.4 mg PO Q5MIN PRN PRN Reason: Chest Pain Discontinue Previous Narcotic Pain Medications And Benzodiazepines 1 each FS .ONE [facility] Stop: 04/18/19 11:07 Propofol (Diprivan) 1,000 mg IV INF PRN; Protocol PRN Reason: TO ACHIEVE GOAL RASS Stop: 04/18/19 11:07 Last Admin: 03/24/19 19:38 Dose: 1,000 mg Propofol (Diprivan Bolus) 20 mg IV Q5MIN PRN PRN Reason: BREAKTHROUGH AGITATION Stop: 04/18/19 11:07 Rosuvastatin Calcium (Crestor) 5 mg PO HS [facility] Last Admin: 03/23/19 20:39 Dose: 5 mg Sodium Chloride (Flush - Normal Saline) 10 ml IVF PRN PRN PRN Reason: Saline Flush Last Admin: 03/23/19 20:40 Dose: 10 ml Spironolactone (Aldactone) 25 mg PO QAM-[facility] Last Admin: 03/24/19 09:23 Dose: 25 mg Vecuronium [place] (Norcuron) 10 mg IVP Q1H PRN PRN Reason: SBP >/= 90 [facility] Last Admin: 03/24/19 02:52 Dose: 10 mg
[2019-03-24] MEDS: Enoxaparin Sodium 40 MG/0.4 ML SYRINGE SC SCH (20:53)
[2019-03-24] MEDS: Rosuvastatin 5 MG TAB PO SCH (20:54)
[2019-03-24] MEDS: Insulin Glargine 30 UNITS in Pre-Filled Syringe 1 EACH SC SCH (21:03)
[2019-03-25] MEDS: Insulin Regular 300 UNITS/3 ML VIAL SC PRN ×6 (00:42→23:39)
[2019-03-25] MEDS: Propofol 1,000 MG/100 ML VIAL IV PRN ×4 (00:47→16:22)
[2019-03-25] MEDS: methylPREDNISolone Sod Succ 40 MG VIAL IVP SCH ×5 (05:07→23:40)
[2019-03-25] MEDS: Furosemide 40 MG/4 ML VIAL SLOW IVP SCH ×2 (05:07→14:10)
[2019-03-25 05:10] LABS: Phosphorus 4.3 mg/dL (2.3-4.7)
[2019-03-25 05:16] LABS: ALT (SGPT) 144 U/L (8-55); AST (SGOT) 21 U/L (5-34); Albumin 3.3 g/dL (3.5-5.0); Alkaline Phosphatase 45 U/L (40-150); Anion Gap 12 mmol/L (10-20); BUN (Urea Nitrogen) 33 mg/dL (9.8-20.1); Band 5 % (5-11); Bilirubin, Total 0.5 mg/dL (0.2-1.2); Calc. Creatinine Clearance 159 mL/min (70-130); Calcium 8.7 mg/dL (7.8-10.44); Carbon Dioxide 29 mmol/L (22-29); Chloride 100 mmol/L (98-107); Estimated GFR-MDRD 87; Globulin 2.2 g/dL (2.4-3.5); Glucose 235 mg/dL (70-105); Hemoglobin 11.6 g/dL (12.0-16.0); Lymphocytes 9 % (21-51); MDiff Complete? YES; Magnesium 2.2 mg/dL (1.6-2.6); Mean Corpuscular HGB CONC 32.1 g/dL (32.0-36.0); Mean Corpuscular Hemoglobin 29.4 pg (27.0-31.0); Mean Corpuscular Volume 91.6 fL (78.0-98.0); Monocytes 8 % (0-10); Neutrophil 78 % (42-75); Platelet Count 298 thou/uL (130-400); Potassium 4.6 mmol/L (3.5-5.1); Protein, Total 5.5 g/dL (6.0-8.3); RBC Distribution Width 13.6 % (11.5-14.5); Red Blood Cell (RBC) Count 3.95 mill/uL (4.20-5.40); Sodium 136 mmol/L (136-145); White Blood Cell (WBC) Count 13.6 thou/uL (4.8-10.8)
[2019-03-25 07:48] LABS: Actual Bicarbonate (HCO3a) 29.4 mEq/L (22-28); CO2 Tension 42.1 mmHg (35.0-45.0); O2 Tension (PaO2) 60.6 mmHg (80.0-100.0); pH, Arterial 7.46 (7.35-7.45)
[2019-03-25 07:49] LABS: Base Excess (BEa) 5.1 mEq/L (-2.0 to +3.0); Calcium, Ionized 1.13 mmol/L (1.12-1.30); Hemoglobin (Hb) 12.8 g/dL (12.0-16.0); Potassium - ABG Lab 4.44 mmol/L (3.70-5.30); Puncture Site L.B.
[2019-03-25 07:50] LABS: ALV-art Gradient 207.625 (0-20)
--- NOTE | 2019-03-25 08:32 | RAD ---
ONE VIEW CHEST: HISTORY: Respiratory distress. Ventilated patient. COMPARISON: 03/24/2019 FINDINGS: Redemonstration of endotracheal and nasogastric tubes. There is cardiomegaly. Persistent pleural ef fusion with superimposed parenchymal change. Worsening opacification of the right hemithorax. Impro mehdi aeration of the left hemithorax. Stable cardiomegaly and atherosclerosis. IMPRESSION: Improved aeration of the left lung while interval increased opacification of the right lung. There i s evidence of congestive heart failure. POS: [facility]
[2019-03-25 09:46] LABS: Vancomycin, Trough 15.9 ug/mL
[2019-03-25] MEDS: Spironolactone 25 MG TAB PO SCH (09:49)
[2019-03-25] MEDS: Lisinopril 5 MG TAB PO SCH ×2 (09:49→21:01)
[2019-03-25] MEDS: Insulin Glargine 30 UNITS in Pre-Filled Syringe 1 EACH SC SCH ×2 (09:50→21:02)
[2019-03-25] MEDS: Cefepime 2 GM in Sodium Chloride 0.9% 100 ML IVPB SCH ×2 (09:50→21:02)
[2019-03-25] MEDS: Famotidine/PF 20 mg/2ml Vial SLOW IVP SCH ×2 (09:51→21:01)
[2019-03-25] MEDS: Vancomycin HCl 1.5 GM in Sodium Chloride 0.9% 250 ML 300 ML IVPB SCH ×2 (09:52→22:00)
[2019-03-25] MEDS: Famotidine 20 MG TAB PO SCH ×2 (09:52→21:03)
[2019-03-25] MEDS: Digoxin 0.5 MG/2 ML AMP SLOW IVP SCH (10:00)
[2019-03-25] MEDS: Azithromycin 500 MG in Sodium Chloride 0.9% 250 ML 250 ML IVPB SCH (11:44)
[2019-03-25] MEDS: fentaNYL Citrate/PF 2,000 MCG in Sodium Chloride 0.9% 60 ML IV SCH (12:09)
[2019-03-25] MEDS: Lorazepam 2 MG/ML VIAL SLOW IVP PRN (14:11)
--- NOTE | 2019-03-25 16:26 | PRG ---
DATE OF SERVICE: 03/25/2019 SUBJECTIVE: Ms. Edmondson is in no distress. She is sedated. OBJECTIVE: VITAL SIGNS: Heart rate 60, blood pressure 131/73, respiratory rate 14, oximetry is 93. Intake and outputs -3074. LUNGS: Distant clear. HEART: Regular rhythm. ABDOMEN: Soft. EXTREMITIES: Without edema. NEURO: Nonfocal when she is allowed to awaken a little bit, she spontaneously moves her extremities. Her chest x-ray is improved on the left about the same on the right. I met with family and answered all their questions. IMPRESSION: 1. Respiratory failure initially secondary to pneumonia combined with chronic obstructive pulmonary disease. 2. Interval development of noncardiogenic cardiogenic edema associated with newly diagnosed cardiomyopathy. 3. Anemia with normal mean corpuscular volume. 4. Diabetes. 5. Elevated liver enzymes. 6. Mechanical ventilation. Continue attempts at diuresis with slow decrease in ventilatory support. I have explained to the family that she may be ventilated until next week and if she is not weanable by the first part next week, tracheostomy will be the next step. I would anticipate she will be in the hospital 3 weeks to 2 months recovering from this. Critical care time is 35 minutes. Job ID: [id number] MTDD
[2019-03-25] MEDS: Bisacodyl 10 MG SUPP PR PRN (17:41)
[2019-03-25] MEDS: Carvedilol 3.125 MG TAB PO SCH (17:41)
[2019-03-25] MEDS: Enoxaparin Sodium 40 MG/0.4 ML SYRINGE SC SCH (21:01)
[2019-03-25] MEDS: Rosuvastatin 5 MG TAB PO SCH (21:01)
--- NOTE | 2019-03-25 21:22 | PDOC.PN ---
- Subjective Encounter Start Date: 03/25/19 Encounter Start Time: 16:00 -: non-verbal Patient seen and examined for Resp failure/Pneumonia. No overnight events - Objective Resuscitation Status - Order Detail: 03/19/19 10:49 Resuscitation Status Routine Resuscitation Status: FULL: Full Resuscitation MAR Reviewed: Yes Vital Signs & Weight: Vital Signs (12 hours) Temp Pulse Resp BP Pulse Ox 03/25/19 20:00 98.3 F 14 03/25/19 18:10 63 143/60 H 03/25/19 18:00 14 03/25/19 16:00 100.8 F H 14 03/25/19 14:47 60 131/73 03/25/19 14:45 62 14 93 L 03/25/19 14:00 99.1 F 14 03/25/19 12:00 100.2 F H 14 03/25/19 10:44 66 125/70 03/25/19 10:39 64 16 93 L 03/25/19 10:00 58 L 16 03/25/19 09:49 59 L 126/66 Weight Admit Weight 228 lb 2.855 oz Weight 229 lb 8.019 oz Most Recent Monitor Data Heart Rate from ECG 66 NIBP 146/56 NIBP BP-Mean 86 Respiration from ECG 14 SpO2 93 I&O: 03/24/19 03/25/19 03/26/19 06:59 06:59 06:59 Intake Total 2992.5 3315.2 1171.8 Output Total 4045 6390 2020 Balance -1052.5 -3074.8 -848.2 Result Diagrams: 03/26/19 03:40 03/26/19 03:40 Additional Labs: Accuchecks 03/25/19 03/25/19 03/25/19 16:19 12:09 09:15 POC Glucose 167 H 223 H 226 H 03/25/19 03/25/19 03/24/19 04:19 00:43 19:52 POC Glucose 241 H 216 H 197 H Radiology Reviewed by me: Yes (CXR - improvement) EKG Reviewed by me: Yes (Tele SR) Phys Exam - Physical Examination Constitutional: NAD (Sedated on Vent) Respiratory: no wheezing Scat rhonchi, few rales at bases Cardiovascular: RRR, no rub Gastrointestinal: soft, non-tender, positive bowel sounds Dx/Plan - Plan DVT proph w/lovenox, DVT proph w/SCDs IMPRESSION: 1. Acute hypoxic and hypercapnic respiratory failure secondary to asthma exacerbation with pneumonia/CHF exacerbation. 2. Sepsis with acute organ dysfunction secondary to pneumonia ?pneumococcal. 3. New onset systolic HF with exacerbation 4. Hyponatremia/Hyperkalemia. 5. Metabolic acidosis. 6. Type 2 myocardial infarction due to increased demand. 7. Diabetes mellitus type 2 with diabetic neuropathy. 8. Chronic kidney disease stage 2. 9. Obesity BMI of 36.8. 10. Hypertension. 11. Chronic pain syndrome. 12. Hyperlipidemia. PLAN: Cont Cefepime/Vancomycin/Azithromycin/IV Solumedrol Cont IV diuretics with ACEI/Aldactone Cont Lantus 30 units b.i.d. with aggressive sliding scale. Repeat chest x-ray/ABG in AM Continue nebulizer/Ventilation sedation protocol. Continue DVT and GI prophylaxis. AM labs Review of Systems - Review of Systems Other: Cannot obtain due to sedation - Medications/Allergies Allergies/Adverse Reactions: Allergies Allergy/AdvReac Type Severity Reaction Status Date / Time asa fillers Allergy Uncoded 03/19/19 11:55 Medications: Current Medications Acetaminophen (Tylenol) 650 mg PO Q4H PRN PRN Reason: Headache/Fever/Mild Pain (1-3) Last Admin: 03/23/19 09:15 Dose: 650 mg Albuterol/Ipratropium (Duoneb) 3 ml NEB [id number] [facility] Last Admin: 03/25/19 18:09 Dose: 3 ml Bisacodyl (Dulcolax) 10 mg [place] DAILYPRN PRN PRN Reason: Constipation Last Admin: 03/25/19 17:41 Dose: 10 mg Carvedilol (Coreg) 3.125 mg PO BID-WM [facility] Last Admin: 03/25/19 17:41 Dose: 3.125 mg Dextrose/Water (Dextrose 50%) 25 gm SLOW IVP PRN PRN PRN Reason: Hypoglycemia Digoxin (Lanoxin) 0.25 mg SLOW IVP DAILY [facility] Last Admin: 03/25/19 10:00 Dose: Not Given Enoxaparin Sodium (Lovenox) 40 mg SC 2100 [facility] Last Admin: 03/24/19 20:53 Dose: 40 mg Famotidine (Pepcid) 20 mg SLOW IVP Q12HR [facility] Last Admin: 03/25/19 09:51 Dose: 20 mg Famotidine (Pepcid) 20 mg PO BID [facility] Last Admin: 03/25/19 09:52 Dose: Not Given Furosemide (Lasix) 40 mg SLOW IVP 0600,1400 [facility] Last Admin: 03/25/19 14:10 Dose: 40 mg Glucagon (Glucagon) 1 mg IM PRN PRN PRN Reason: Hypoglycemia Fentanyl Citrate 2,000 mcg/ (Sodium Chloride) 100 mls @ 0 mls/hr IV INF [facility]; Protocol Stop: 04/18/19 07:52 Last Admin: 03/25/19 12:09 Dose: 100 mls Azithromycin 500 mg/ Sodium (Chloride) 250 mls @ 250 mls/hr IVPB 1200 [facility] Last Admin: 03/25/19 11:44 Dose: 250 mls Dextrose/Water (D5w) 1,000 mls @ 0 mls/hr IV .Q0M PRN PRN Reason: Hypoglycemia Fentanyl Citrate (Fentanyl Bolus) 250 mls @ 0 mls/hr IVPB PRN PRN PRN Reason: Breakthrough pain/agitation Stop: 04/18/19 11:07 Cefepime HCl 2 gm/ Sodium (Chloride) 100 mls @ 200 mls/hr IVPB Q12HR [facility] Last Admin: 03/25/19 09:50 Dose: 100 mls Vancomycin HCl 1.5 gm/ Sodium (Chloride) 300 mls @ 200 mls/hr IVPB 1000,2200 [facility] Last Admin: 03/25/19 09:52 Dose: 300 mls Sodium Chloride (Normal Saline 0.9%) 1,000 mls @ 0 mls/hr IV .Q0M [facility] Insulin Glargine 30 units/ (Miscellaneous Medication) 0.3 mls @ 0 mls/hr SC QAM [facility] Last Admin: 03/25/19 09:50 Dose: 0.3 mls Insulin Glargine 30 units/ (Miscellaneous Medication) 0.3 mls @ 0 mls/hr SC HS [facility] Last Admin: 03/24/19 21:03 Dose: 0.3 mls Insulin Human Regular (Humulin R) 0 units SC .AGGRESSIVE SLIDING PRN PRN Reason: Aggressive Correctional Scale Last Admin: 03/25/19 16:19 Dose: 3 unit Lisinopril (Zestril) 5 mg PO BID [facility] Last Admin: 03/25/19 09:49 Dose: 5 mg Lorazepam (Ativan) 2 mg SLOW IVP Q1H PRN PRN Reason: Breakthrough agitation Stop: 04/18/19 11:07 Last Admin: 03/25/19 14:11 Dose: 2 mg Methylprednisolone Sodium Succinate (Solu-Medrol) 20 mg IVP Q6HR [facility] Last Admin: 03/25/19 17:41 Dose: 20 mg Mineral Oil/White Petrolatum (Systane Nighttime Eye Ointment) 0 gm EA EYE PRN PRN PRN Reason: Dry Eyes Miscellaneous Medication (Pharmacy To Dose) 1 each IVPB PRN PRN PRN Reason: Pharmacy to dose Morphine Sulfate (Morphine) 2 mg SLOW IVP Q1H PRN PRN Reason: BREAKTHROUGH PAIN/Agitation Stop: 04/18/19 11:07 Nitroglycerin (Nitrostat) 0.4 mg PO Q5MIN PRN PRN Reason: Chest Pain Discontinue Previous Narcotic Pain Medications And Benzodiazepines 1 each FS .ONE [facility] Stop: 04/18/19 11:07 Propofol (Diprivan) 1,000 mg IV INF PRN; Protocol PRN Reason: TO ACHIEVE GOAL RASS Stop: 04/18/19 11:07 Last Admin: 03/25/19 16:22 Dose: 1,000 mg Propofol (Diprivan Bolus) 20 mg IV Q5MIN PRN PRN Reason: BREAKTHROUGH AGITATION Stop: 04/18/19 11:07 Rosuvastatin Calcium (Crestor) 5 mg PO HS [facility] Last Admin: 03/24/19 20:54 Dose: 5 mg Sodium Chloride (Flush - Normal Saline) 10 ml IVF PRN PRN PRN Reason: Saline Flush Last Admin: 03/23/19 20:40 Dose: 10 ml Spironolactone (Aldactone) 25 mg PO QAM-WM [facility] Last Admin: 03/25/19 09:49 Dose: 25 mg Vecuronium [place] (Norcuron) 10 mg IVP Q1H PRN PRN Reason: SBP >/= 90 [facility] Last Admin: 03/24/19 02:52 Dose: 10 mg
[2019-03-26] MEDS: Propofol 1,000 MG/100 ML VIAL IV PRN ×4 (01:13→16:48)
[2019-03-26] MEDS: fentaNYL Citrate/PF 2,000 MCG in Sodium Chloride 0.9% 60 ML IV SCH ×2 (01:39→17:04)
[2019-03-26] MEDS: Lorazepam 2 MG/ML VIAL SLOW IVP PRN (02:34)
[2019-03-26] MEDS: Insulin Regular 300 UNITS/3 ML VIAL SC PRN ×4 (04:17→20:34)
[2019-03-26 04:25] LABS: Band 2 % (5-11); Hemoglobin 11.8 g/dL (12.0-16.0); Lymphocytes 7 % (21-51); MDiff Complete? YES; Mean Corpuscular HGB CONC 31.7 g/dL (32.0-36.0); Mean Corpuscular Hemoglobin 29.4 pg (27.0-31.0); Mean Corpuscular Volume 92.7 fL (78.0-98.0); Mean Platelet Volume 7.9 fL (7.4-10.4); Monocytes 6 % (0-10); Neutrophil 85 % (42-75); Platelet Count 292 thou/uL (130-400); RBC Distribution Width 13.7 % (11.5-14.5); White Blood Cell (WBC) Count 16.7 thou/uL (4.8-10.8)
[2019-03-26 04:27] LABS: Anion Gap 10 mmol/L (10-20); BUN (Urea Nitrogen) 40 mg/dL (9.8-20.1); Calc. Creatinine Clearance 156 mL/min (70-130); Calcium 8.6 mg/dL (7.8-10.44); Carbon Dioxide 31 mmol/L (22-29); Chloride 100 mmol/L (98-107); Estimated GFR-MDRD 88; Glucose 229 mg/dL (70-105); Potassium 4.8 mmol/L (3.5-5.1); Sodium 136 mmol/L (136-145)
[2019-03-26 05:04] LABS: Actual Bicarbonate (HCO3a) 30.2 mEq/L (22-28); Base Excess (BEa) 5.1 mEq/L (-2.0 to +3.0); CO2 Tension 46.4 mmHg (35.0-45.0); Calcium, Ionized 1.14 mmol/L (1.12-1.30); Hemoglobin (Hb) 12.2 g/dL (12.0-16.0); O2 Tension (PaO2) 73.2 mmHg (80.0-100.0); Potassium - ABG Lab 4.58 mmol/L (3.70-5.30); pH, Arterial 7.43 (7.35-7.45)
[2019-03-26 05:05] LABS: Puncture Site RRADIAL
[2019-03-26] MEDS: methylPREDNISolone Sod Succ 40 MG VIAL IVP SCH ×4 (05:29→23:27)
[2019-03-26] MEDS: Furosemide 40 MG/4 ML VIAL SLOW IVP SCH ×2 (05:29→14:24)
--- NOTE | 2019-03-26 08:22 | RAD ---
PORTABLE CHEST: Date: 03/26/19 HISTORY: CCU follow-up. Ventilator follow-up. COMPARISON: 03/25/19. FINDINGS/IMPRESSION: ET tube and NG tube remain in place. Cardiomegaly and mild vascular congestion. Evidence of new patch y infiltrate in the left mid lung field in the infrahilar region. CP angles are obscured consistent w ith small effusions and bibasilar atelectasis. Continued follow-up recommended. POS: WILMAR
[2019-03-26] MEDS: Spironolactone 25 MG TAB PO SCH (08:51)
[2019-03-26] MEDS: Carvedilol 3.125 MG TAB PO SCH ×2 (08:51→16:48)
[2019-03-26] MEDS: Cefepime 2 GM in Sodium Chloride 0.9% 100 ML IVPB SCH ×2 (09:58→20:33)
[2019-03-26] MEDS: Famotidine 20 MG TAB PO SCH ×2 (09:58→20:33)
[2019-03-26] MEDS: Lisinopril 5 MG TAB PO SCH (09:59)
[2019-03-26] MEDS: Vancomycin HCl 1.5 GM in Sodium Chloride 0.9% 250 ML 300 ML IVPB SCH (09:59)
[2019-03-26] MEDS: Insulin Glargine 30 UNITS in Pre-Filled Syringe 1 EACH SC SCH ×2 (10:00→20:33)
[2019-03-26] MEDS: Famotidine/PF 20 mg/2ml Vial SLOW IVP SCH ×2 (10:02→20:34)
[2019-03-26] MEDS: Digoxin 0.5 MG/2 ML AMP SLOW IVP SCH (10:07)
[2019-03-26] MEDS ORDERED: Lisinopril 10 MG TAB PO SCH (12:15)
[2019-03-26] MEDS: Azithromycin 500 MG in Sodium Chloride 0.9% 250 ML 250 ML IVPB SCH (12:28)
[2019-03-26] MEDS: Bisacodyl 10 MG SUPP PR PRN (13:18)
--- NOTE | 2019-03-26 17:34 | PRG ---
DATE OF SERVICE: 03/26/2019 SUBJECTIVE: Hemodynamically stable. She is in no distress. OBJECTIVE: VITAL SIGNS: Heart rate of 60, blood pressure 113/54, respiratory rate 17, oximetry is 94%. Intake and outputs -693. LUNGS: Clear anteriorly. HEART: Regular rhythm. S1 and S2 are normal. ABDOMEN: Soft and nontender. EXTREMITIES: Without edema or asymmetry. NEUROLOGIC: Nonfocal. LABORATORY DATA: White count 16.7, hemoglobin 11.8, platelets 292,000. Sodium 136, potassium 4.8, chloride 100, bicarb 31, BUN 40, and creatinine 0.7. Chest radiograph shows probably what is an atelectatic infiltrate in her left infrahilar region. Her chest x-ray is otherwise unchanged. IMPRESSION: 1. Pneumonia. 2. Congestive heart failure. 3. Suspected significant chronic obstructive pulmonary disease. 4. Acute respiratory distress syndrome with her pneumonia/noncardiogenic pulmonary edema. 5. Anemia with normal mean corpuscular volume. 6. Diabetes. 7. Elevated liver enzymes. PLAN: We will continue supportive care. It is really not at a point where we can extubate her. When she has any decrease in her sedation, she becomes very dyssynchronous with mechanical ventilation. We will continue with nutritional support, antimicrobial therapy, cardiac medications, steroids, and nebulizer therapy. I have reviewed her cultures. She has had no culture, which suggested that she has anything that would require any more vancomycin, so this will be discontinued. We will try to avoid using paralytics. We will try to get her off propofol and start her on a Precedex drip to see if this works any better. She will continue with the fentanyl. Critical care time is 35 minutes. Job ID: [id number] MTDD
--- NOTE | 2019-03-26 18:55 | PDOC.PN ---
- Subjective Encounter Start Date: 03/26/19 Encounter Start Time: 18:54 -: non-verbal Patient seen and examined for Pneumonia/Resp failure. No overnight events - Objective Resuscitation Status - Order Detail: 03/19/19 10:49 Resuscitation Status Routine Resuscitation Status: FULL: Full Resuscitation Vital Signs & Weight: Vital Signs (12 hours) Temp Pulse Resp BP Pulse Ox 03/26/19 18:16 67 142/60 H 03/26/19 15:20 63 113/54 L 03/26/19 15:19 63 14 94 L 03/26/19 14:00 14 03/26/19 12:46 120/61 03/26/19 12:00 98.9 F 14 03/26/19 10:50 65 155/56 H 03/26/19 10:49 65 17 94 L 03/26/19 10:07 63 03/26/19 10:00 14 03/26/19 09:59 63 125/60 03/26/19 08:00 98.9 F 14 94 L 03/26/19 07:26 63 149/58 H 03/26/19 07:25 63 14 94 L Weight Admit Weight 228 lb 2.855 oz Weight 229 lb 15.074 oz Most Recent Monitor Data Heart Rate from ECG 69 NIBP 142/60 NIBP BP-Mean 87 Respiration from ECG 19 SpO2 94 I&O: 03/25/19 03/26/19 03/27/19 06:59 06:59 06:59 Intake Total 3315.2 2581.8 160 Output Total 6390 3275 1535 Balance -3074.8 -693.2 -1375 Result Diagrams: 03/26/19 03:40 03/26/19 03:40 Additional Labs: Accuchecks 03/26/19 03/26/19 03/26/19 13:15 10:12 04:13 POC Glucose 187 H 215 H 228 H 03/25/19 03/25/19 23:41 20:15 POC Glucose 177 H 131 H EKG Reviewed by me: Yes (Tele SR) Phys Exam - Physical Examination Constitutional: NAD (on Vent) Respiratory: no wheezing Scat rhonchi Cardiovascular: RRR, no rub Gastrointestinal: soft, positive bowel sounds Dx/Plan - Plan DVT proph w/SCDs IMPRESSION: 1. Acute hypoxic and hypercapnic respiratory failure secondary to asthma exacerbation with pneumonia/CHF exacerbation. 2. Sepsis with acute organ dysfunction secondary to pneumonia ?pneumococcal. 3. New onset systolic HF with exacerbation 4. Hyponatremia/Hyperkalemia. 5. Metabolic acidosis. 6. Type 2 myocardial infarction due to increased demand. 7. Diabetes mellitus type 2 with diabetic neuropathy. 8. Chronic kidney disease stage 2. 9. Obesity BMI of 36.8. 10. Hypertension. 11. Chronic pain syndrome. 12. Hyperlipidemia. PLAN: Vancomycin dced Cont Cefepime/Azithromycin with IV Solumedrol Cont IV Lasix with ACEI/Aldactone/Digoxin per Cardiology Cont current dose of Lantus with aggressive sliding scale. Continue nebulizer/Ventilation sedation protocol. Continue DVT and GI prophylaxis. AM - labs/ABG/CXR Review of Systems - Review of Systems Other: Cannot obtain due to current mentation - Medications/Allergies Allergies/Adverse Reactions: Allergies Allergy/AdvReac Type Severity Reaction Status Date / Time asa fillers Allergy Uncoded 03/19/19 11:55 Medications: Current Medications Acetaminophen (Tylenol) 650 mg PO Q4H PRN PRN Reason: Headache/Fever/Mild Pain (1-3) Last Admin: 03/23/19 09:15 Dose: 650 mg Albuterol/Ipratropium (Duoneb) 3 ml NEB [id number] [facility] Last Admin: 03/26/19 18:15 Dose: 3 ml Bisacodyl (Dulcolax) 10 mg [place] DAILYPRN PRN PRN Reason: Constipation Last Admin: 03/26/19 13:18 Dose: 10 mg Carvedilol (Coreg) 3.125 mg PO BID-WM [facility] Last Admin: 03/26/19 16:48 Dose: 3.125 mg Dextrose/Water (Dextrose 50%) 25 gm SLOW IVP PRN PRN PRN Reason: Hypoglycemia Digoxin (Lanoxin) 0.25 mg SLOW IVP DAILY [facility] Last Admin: 03/26/19 10:07 Dose: 0.25 mg Enoxaparin Sodium (Lovenox) 40 mg SC 2100 [facility] Last Admin: 03/25/19 21:01 Dose: 40 mg Famotidine (Pepcid) 20 mg SLOW IVP Q12HR [facility] Last Admin: 03/26/19 10:02 Dose: Not Given Famotidine (Pepcid) 20 mg PO BID [facility] Last Admin: 03/26/19 09:58 Dose: 20 mg Furosemide (Lasix) 40 mg SLOW IVP 0600,1400 [facility] Last Admin: 03/26/19 14:24 Dose: 40 mg Glucagon (Glucagon) 1 mg IM PRN PRN PRN Reason: Hypoglycemia Fentanyl Citrate 2,000 mcg/ (Sodium Chloride) 100 mls @ 0 mls/hr IV INF [facility]; Protocol Stop: 04/18/19 07:52 Last Admin: 03/26/19 17:04 Dose: 100 mls Azithromycin 500 mg/ Sodium (Chloride) 250 mls @ 250 mls/hr IVPB 1200 [facility] Last Admin: 03/26/19 12:28 Dose: 250 mls Dextrose/Water (D5w) 1,000 mls @ 0 mls/hr IV .Q0M PRN PRN Reason: Hypoglycemia Fentanyl Citrate (Fentanyl Bolus) 250 mls @ 0 mls/hr IVPB PRN PRN PRN Reason: Breakthrough pain/agitation Stop: 04/18/19 11:07 Cefepime HCl 2 gm/ Sodium (Chloride) 100 mls @ 200 mls/hr IVPB Q12HR [facility] Last Admin: 03/26/19 09:58 Dose: 100 mls Sodium Chloride (Normal Saline 0.9%) 1,000 mls @ 0 mls/hr IV .Q0M [facility] Insulin Glargine 30 units/ (Miscellaneous Medication) 0.3 mls @ 0 mls/hr SC QAM [facility] Last Admin: 03/26/19 10:00 Dose: 0.3 mls Insulin Glargine 30 units/ (Miscellaneous Medication) 0.3 mls @ 0 mls/hr SC HS [facility] Last Admin: 03/25/19 21:02 Dose: 0.3 mls Insulin Human Regular (Humulin R) 0 units SC .AGGRESSIVE SLIDING PRN PRN Reason: Aggressive Correctional Scale Last Admin: 03/26/19 13:14 Dose: 3 unit Lisinopril (Zestril) 10 mg PO BID [facility] Lorazepam (Ativan) 2 mg SLOW IVP Q1H PRN PRN Reason: Breakthrough agitation Stop: 04/18/19 11:07 Last Admin: 03/26/19 02:34 Dose: 2 mg Methylprednisolone Sodium Succinate (Solu-Medrol) 20 mg IVP Q6HR [facility] Last Admin: 03/26/19 18:20 Dose: 20 mg Mineral Oil/White Petrolatum (Systane Nighttime Eye Ointment) 0 gm EA EYE PRN PRN PRN Reason: Dry Eyes Miscellaneous Medication (Pharmacy To Dose) 1 each IVPB PRN PRN PRN Reason: Pharmacy to dose Morphine Sulfate (Morphine) 2 mg SLOW IVP Q1H PRN PRN Reason: BREAKTHROUGH PAIN/Agitation Stop: 04/18/19 11:07 Nitroglycerin (Nitrostat) 0.4 mg PO Q5MIN PRN PRN Reason: Chest Pain Discontinue Previous Narcotic Pain Medications And Benzodiazepines 1 each FS .ONE [facility] Stop: 04/18/19 11:07 Propofol (Diprivan) 1,000 mg IV INF PRN; Protocol PRN Reason: TO ACHIEVE GOAL RASS Stop: 04/18/19 11:07 Last Admin: 03/26/19 16:48 Dose: 1,000 mg Propofol (Diprivan Bolus) 20 mg IV Q5MIN PRN PRN Reason: BREAKTHROUGH AGITATION Stop: 04/18/19 11:07 Rosuvastatin Calcium (Crestor) 5 mg PO HS [facility] Last Admin: 03/25/19 21:01 Dose: 5 mg Sodium Chloride (Flush - Normal Saline) 10 ml IVF PRN PRN PRN Reason: Saline Flush Last Admin: 03/23/19 20:40 Dose: 10 ml Spironolactone (Aldactone) 25 mg PO QAM[facility] Last Admin: 03/26/19 08:51 Dose: 25 mg Vecuronium [place] (Norcuron) 10 mg IVP Q1H PRN PRN Reason: SBP >/= 90 MMHG Last Admin: 03/24/19 02:52 Dose: 10 mg
[2019-03-26] MEDS: Lisinopril 10 MG TAB PO SCH (20:33)
[2019-03-26] MEDS: Enoxaparin Sodium 40 MG/0.4 ML SYRINGE SC SCH (20:33)
[2019-03-26] MEDS: Rosuvastatin 5 MG TAB PO SCH (20:33)
[2019-03-27] MEDS: Insulin Regular 300 UNITS/3 ML VIAL SC PRN ×5 (03:59→23:57)
[2019-03-27 04:33] LABS: Anion Gap 11 mmol/L (10-20); BUN (Urea Nitrogen) 37 mg/dL (9.8-20.1); Calc. Creatinine Clearance 154 mL/min (70-130); Calcium 8.8 mg/dL (7.8-10.44); Carbon Dioxide 32 mmol/L (22-29); Chloride 97 mmol/L (98-107); Estimated GFR-MDRD 87; Glucose 293 mg/dL (70-105); Magnesium 1.9 mg/dL (1.6-2.6); Sodium 135 mmol/L (136-145)
[2019-03-27 04:41] LABS: Band 1 % (5-11); Eosinophils 1 % (0-10); Hemoglobin 12.7 g/dL (12.0-16.0); Lymphocytes 9 % (21-51); MDiff Complete? YES; Mean Corpuscular HGB CONC 31.8 g/dL (32.0-36.0); Mean Corpuscular Hemoglobin 29.3 pg (27.0-31.0); Mean Corpuscular Volume 92.2 fL (78.0-98.0); Mean Platelet Volume 8.1 fL (7.4-10.4); Monocytes 3 % (0-10); Neutrophil 86 % (42-75); Platelet Count 280 thou/uL (130-400); RBC Distribution Width 13.7 % (11.5-14.5); Red Blood Cell (RBC) Count 4.32 mill/uL (4.20-5.40); White Blood Cell (WBC) Count 16.6 thou/uL (4.8-10.8)
[2019-03-27] MEDS: methylPREDNISolone Sod Succ 40 MG VIAL IVP SCH ×4 (05:28→23:50)
[2019-03-27] MEDS: Furosemide 40 MG/4 ML VIAL SLOW IVP SCH (05:28)
[2019-03-27] MEDS: fentaNYL Citrate/PF 2,000 MCG in Sodium Chloride 0.9% 60 ML IV SCH (06:36)
[2019-03-27 07:25] LABS: Actual Bicarbonate (HCO3a) 32.2 mEq/L (22-28); Base Excess (BEa) 7.1 mEq/L (-2.0 to +3.0); CO2 Tension 47.3 mmHg (35.0-45.0); Calcium, Ionized 1.12 mmol/L (1.12-1.30); Carboxyhemoglobin (COHb) 1.5 gm% (0.0-3.0); Hemoglobin (Hb) 14.1 g/dL (12.0-16.0); O2 Tension (PaO2) 124.3 mmHg (80.0-100.0); Potassium - ABG Lab 4.77 mmol/L (3.70-5.30); pH, Arterial 7.45 (7.35-7.45)
[2019-03-27 07:26] LABS: Puncture Site RRA
[2019-03-27 07:27] LABS: ALV-art Gradient 137.425 (0-20)
[2019-03-27 09:37] LABS: Digoxin 0.52 ng/mL (0.8-2.0)
[2019-03-27] MEDS: Famotidine 20 MG TAB PO SCH (09:40)
[2019-03-27] MEDS: Cefepime 2 GM in Sodium Chloride 0.9% 100 ML IVPB SCH ×2 (09:45→20:13)
[2019-03-27] MEDS: Insulin Glargine 30 UNITS in Pre-Filled Syringe 1 EACH SC SCH ×2 (09:46→20:23)
[2019-03-27] MEDS: Famotidine/PF 20 mg/2ml Vial SLOW IVP SCH ×2 (09:48→20:22)
[2019-03-27] MEDS: Lisinopril 10 MG TAB PO SCH ×2 (09:48→20:22)
[2019-03-27] MEDS: Spironolactone 25 MG TAB PO SCH (10:07)
[2019-03-27] MEDS ORDERED: Carvedilol 3.125 MG TAB PO SCH ×3 (10:15→18:15)
[2019-03-27] MEDS: Carvedilol 3.125 MG TAB PO SCH (10:19)
[2019-03-27] MEDS: Azithromycin 500 MG in Sodium Chloride 0.9% 250 ML 250 ML IVPB SCH (13:28)
--- NOTE | 2019-03-27 17:51 | PRG ---
DATE OF SERVICE: 03/27/2019 SUBJECTIVE: Ms. Edmondson likely awake and moving all extremities to command today. She made eye contact. OBJECTIVE: She is afebrile. Respiratory rate is 20, oximetry is in the 90s, blood pressure 167/90. Intake and outputs -1110 mL. Lungs are clear anteriorly. Heart; regular rhythm. S1, S2 normal. Abdomen; soft and nontender. Extremities without clubbing, cyanosis, or edema. Neuro is grossly nonfocal. LABORATORY DATA: White count 16.6, hemoglobin 12.7, platelets 280,000. Sodium 135, potassium 5, chloride 97, bicarb 32, BUN 37, and creatinine 0.7. PH 7.45, pCO2 of 47, PO2 124. IMPRESSION: 1. Respiratory failure secondary to pneumonia. 2. History of cardiogenic and noncardiogenic edema. It is unclear at this point if her cardiomyopathy is related to her clinical sepsis or an incidental finding uncovered by this critical illness. 3. Continue to diurese her. She is doing reasonably well and tolerating her current mechanical ventilation and nutritional support. 4. We will continue antimicrobial therapy for now for 7 to 10 days. 5. We will begin the weaning process. Hopefully, we can see some progress with regard to that over the next few days. CRITICAL CARE TIME: 30 minutes. Job ID: [id number]
--- NOTE | 2019-03-27 18:05 | PDOC.PN ---
- Subjective Encounter Start Date: 03/27/19 Encounter Start Time: 12:30 -: non-verbal Patient seen and examined for Resp failure. On [facility] Ventilation. No overnight events - Objective Resuscitation Status - Order Detail: 03/19/19 10:49 Resuscitation Status Routine Resuscitation Status: FULL: Full Resuscitation MAR Reviewed: Yes Vital Signs & Weight: Vital Signs (12 hours) Temp Pulse Resp BP Pulse Ox 03/27/19 16:00 99.9 F H 20 03/27/19 14:49 81 03/27/19 14:00 19 03/27/19 13:18 78 03/27/19 12:00 99.3 F 15 03/27/19 10:34 72 03/27/19 10:00 14 03/27/19 09:48 149/74 H 03/27/19 08:00 99.4 F 14 97 03/27/19 07:16 114 H Weight Admit Weight 228 lb 2.855 oz Weight 225 lb 8.526 oz Most Recent Monitor Data Heart Rate from ECG 75 NIBP 162/79 NIBP BP-Mean 106 Respiration from ECG 18 SpO2 98 I&O: 03/26/19 03/27/19 03/28/19 06:59 06:59 06:59 Intake Total 2581.8 2799.2 1324 Output Total 3275 3910 2315 [facility] -693.2 -1110.8 -991 Result Diagrams: 03/27/19 03:44 03/27/19 03:44 Additional Labs: Accuchecks 03/27/19 03/27/19 03/27/19 16:15 13:31 08:18 POC Glucose 223 H 239 H 279 H 03/27/19 03/27/19 03/26/19 03:44 00:01 20:18 POC Glucose 286 H 220 H 207 H Laboratory Tests 03/27/19 03:44 Digoxin 0.52 L EKG Reviewed by me: Yes (Tele SR) Phys Exam - Physical Examination Constitutional: NAD Respiratory: no wheezing Scat rhonchi Cardiovascular: RRR, no rub Gastrointestinal: soft, positive bowel sounds Musculoskeletal: no edema Dx/Plan - Plan DVT proph w/lovenox, DVT proph w/SCDs IMPRESSION: 1. Acute hypoxic and hypercapnic respiratory failure secondary to Pneumonia/CHF exacerbation. 2. Sepsis with acute organ dysfunction secondary to pneumonia ?pneumococcal. 3. New onset systolic HF with exacerbation 4. Hyponatremia/Hyperkalemia. 5. Metabolic acidosis. 6. Type 2 myocardial infarction due to increased demand. 7. Diabetes mellitus type 2 with diabetic neuropathy. 8. Chronic kidney disease stage 2. 9. Obesity BMI of 36.8. 10. Hypertension. 11. Chronic pain syndrome. 12. Hyperlipidemia. PLAN: Cont Cefepime/Azithromycin IV Solumedrol dose reduced Lasix changed to PO Cont Lisinopril On Precedex On Aldactone/Digoxin Cont Lantus with aggressive sliding scale. Continue nebulizer/Ventilation sedation protocol. Continue DVT and GI prophylaxis. Review of Systems - Review of Systems Other: Cannot obtain due to Sedation - Medications/Allergies Allergies/Adverse Reactions: Allergies Allergy/AdvReac Type Severity Reaction Status Date / Time asa fillers Allergy Uncoded 03/19/19 11:55 Medications: Current Medications Acetaminophen (Tylenol) 650 mg PO Q4H PRN PRN Reason: Headache/Fever/Mild Pain (1-3) Last Admin: 03/23/19 09:15 Dose: 650 mg Albuterol/Ipratropium (Duoneb) 3 ml NEB [id number] [facility] Last Admin: 03/27/19 14:49 Dose: 3 ml Bisacodyl (Dulcolax) 10 mg [place] DAILYPRN PRN PRN Reason: Constipation Last Admin: 03/26/19 13:18 Dose: 10 mg Dextrose/Water (Dextrose 50%) 25 gm SLOW IVP PRN PRN PRN Reason: Hypoglycemia Enoxaparin Sodium (Lovenox) 40 mg SC 2100 [facility] Last Admin: 03/26/19 20:33 Dose: 40 mg Famotidine (Pepcid) 20 mg SLOW IVP Q12HR [facility] Last Admin: 03/27/19 09:48 Dose: 20 mg Furosemide (Lasix) 40 mg PO DAILY-AC [facility] Glucagon (Glucagon) 1 mg IM PRN PRN PRN Reason: Hypoglycemia Fentanyl Citrate 2,000 mcg/ (Sodium Chloride) 100 mls @ 0 mls/hr IV INF [facility]; Protocol Stop: 04/18/19 07:52 Last Admin: 03/27/19 06:36 Dose: 100 mls Dextrose/Water (D5w) 1,000 mls @ 0 mls/hr IV .Q0M PRN PRN Reason: Hypoglycemia Fentanyl Citrate (Fentanyl Bolus) 250 mls @ 0 mls/hr IVPB PRN PRN PRN Reason: Breakthrough pain/agitation Stop: 04/18/19 11:07 Cefepime HCl 2 gm/ Sodium (Chloride) 100 mls @ 200 mls/hr IVPB Q12HR [facility] Last Admin: 03/27/19 09:45 Dose: 100 mls Sodium Chloride (Normal Saline 0.9%) 1,000 mls @ 0 mls/hr IV .Q0M [facility] Insulin Glargine 30 units/ (Miscellaneous Medication) 0.3 mls @ 0 mls/hr SC QAM [facility] Last Admin: 03/27/19 09:46 Dose: 0.3 mls Insulin Glargine 30 units/ (Miscellaneous Medication) 0.3 mls @ 0 mls/hr SC HS [facility] Last Admin: 03/26/19 20:33 Dose: 0.3 mls Dexmedetomidine HCl 400 mcg/ (Sodium Chloride) 100 mls @ 0 mls/hr IVPB INF [facility] ; Protocol Last Admin: 03/27/19 17:47 Dose: 100 mls Insulin Human Regular (Humulin R) 0 units SC .AGGRESSIVE SLIDING PRN PRN Reason: Aggressive Correctional Scale Last Admin: 03/27/19 16:28 Dose: 6 unit Lisinopril (Zestril) 10 mg PO BID [facility] Last Admin: 03/27/19 09:48 Dose: 10 mg Lorazepam (Ativan) 2 mg SLOW IVP Q1H PRN PRN Reason: Breakthrough agitation Stop: 04/18/19 11:07 Last Admin: 03/26/19 02:34 Dose: 2 mg Methylprednisolone Sodium Succinate (Solu-Medrol) 20 mg IVP Q6HR [facility] Last Admin: 03/27/19 17:49 Dose: 20 mg Mineral Oil/White Petrolatum (Systane Nighttime Eye Ointment) 0 gm EA EYE PRN PRN PRN Reason: Dry Eyes Morphine Sulfate (Morphine) 2 mg SLOW IVP Q1H PRN PRN Reason: BREAKTHROUGH PAIN/Agitation Stop: 04/18/19 11:07 Nitroglycerin (Nitrostat) 0.4 mg PO Q5MIN PRN PRN Reason: Chest Pain Discontinue Previous Narcotic Pain Medications And Benzodiazepines 1 each FS .ONE [facility] Stop: 04/18/19 11:07 Propofol (Diprivan) 1,000 mg IV INF PRN; Protocol PRN Reason: TO ACHIEVE GOAL RASS Stop: 04/18/19 11:07 Last Admin: 03/26/19 16:48 Dose: 1,000 mg Propofol (Diprivan Bolus) 20 mg IV Q5MIN PRN PRN Reason: BREAKTHROUGH AGITATION Stop: 04/18/19 11:07 Rosuvastatin Calcium (Crestor) 5 mg PO HS [facility] Last Admin: 03/26/19 20:33 Dose: 5 mg Sodium Chloride (Flush - Normal Saline) 10 ml IVF PRN PRN PRN Reason: Saline Flush Last Admin: 03/23/19 20:40 Dose: 10 ml Spironolactone (Aldactone) 25 mg PO QAM-WM [facility] Last Admin: 03/27/19 10:07 Dose: 25 mg Vecuronium [place] (Norcuron) 10 mg IVP Q1H PRN PRN Reason: SBP >/= 90 MMHG Last Admin: 03/24/19 02:52 Dose: 10 mg
[2019-03-27] MEDS: Enoxaparin Sodium 40 MG/0.4 ML SYRINGE SC SCH (20:23)
[2019-03-27] MEDS: Rosuvastatin 5 MG TAB PO SCH (20:23)
[2019-03-28] MEDS: fentaNYL Citrate/PF 2,000 MCG in Sodium Chloride 0.9% 60 ML IV SCH (00:55)
[2019-03-28] MEDS: Insulin Regular 300 UNITS/3 ML VIAL SC PRN ×5 (04:02→19:31)
[2019-03-28] MEDS: Lorazepam 2 MG/ML VIAL SLOW IVP PRN ×2 (04:45→14:01)
[2019-03-28 04:51] LABS: Anion Gap 12 mmol/L (10-20); BUN (Urea Nitrogen) 35 mg/dL (9.8-20.1); Band 1 % (5-11); Calc. Creatinine Clearance 165 mL/min (70-130); Calcium 9.1 mg/dL (7.8-10.44); Carbon Dioxide 31 mmol/L (22-29); Chloride 96 mmol/L (98-107); Estimated GFR-MDRD Greater than 90; Glucose 240 mg/dL (70-105); Hemoglobin 12.7 g/dL (12.0-16.0); Lymphocytes 4 % (21-51); MDiff Complete? YES; Mean Corpuscular HGB CONC 32.2 g/dL (32.0-36.0); Mean Corpuscular Hemoglobin 29.4 pg (27.0-31.0); Mean Corpuscular Volume 91.4 fL (78.0-98.0); Mean Platelet Volume 8.3 fL (7.4-10.4); Monocytes 4 % (0-10); Neutrophil 91 % (42-75); Platelet Count 284 thou/uL (130-400); Platelet Morphology Comment Appears Adequate; Potassium 4.1 mmol/L (3.5-5.1); RBC Distribution Width 13.5 % (11.5-14.5); RBC Morphology Normal; Sodium 135 mmol/L (136-145); White Blood Cell (WBC) Count 20.6 thou/uL (4.8-10.8)
[2019-03-28] MEDS: methylPREDNISolone Sod Succ 40 MG VIAL IVP SCH ×3 (05:50→17:22)
[2019-03-28 07:19] LABS: Actual Bicarbonate (HCO3a) 31.4 mEq/L (22-28); Base Excess (BEa) 7.1 mEq/L (-2.0 to +3.0); CO2 Tension 43.3 mmHg (35.0-45.0); Calcium, Ionized 1.14 mmol/L (1.12-1.30); Carboxyhemoglobin (COHb) 1.7 gm% (0.0-3.0); Hemoglobin (Hb) 13.1 g/dL (12.0-16.0); O2 Tension (PaO2) 66.9 mmHg (80.0-100.0); Potassium - ABG Lab 4.07 mmol/L (3.70-5.30); pH, Arterial 7.48 (7.35-7.45)
[2019-03-28 07:20] LABS: ALV-art Gradient 128.525 (0-20); Puncture Site RRA
[2019-03-28] MEDS: Furosemide 40 MG TAB PO SCH (07:59)
[2019-03-28] MEDS: Spironolactone 25 MG TAB PO SCH (08:00)
[2019-03-28] MEDS ORDERED: Carvedilol 3.125 MG TAB PO SCH (08:00)
--- NOTE | 2019-03-28 08:05 | RAD ---
PORTABLE CHEST: Date: 03/28/19 HISTORY: Respiratory distress. COMPARISON: 03/26/19 study. FINDINGS: Heart size is enlarged. Parenchymal lung changes appear stable. Endotracheal tube and NG tubes appear in satisfactory position. IMPRESSION: Stable exam. POS: WILMAR
[2019-03-28] MEDS: Famotidine/PF 20 mg/2ml Vial SLOW IVP SCH ×2 (08:31→19:30)
[2019-03-28] MEDS: Bisacodyl 10 MG SUPP PR PRN (08:32)
[2019-03-28] MEDS: Cefepime 2 GM in Sodium Chloride 0.9% 100 ML IVPB SCH ×2 (08:32→19:29)
[2019-03-28] MEDS: Lisinopril 10 MG TAB PO SCH ×2 (08:34→19:30)
[2019-03-28] MEDS: Insulin Glargine 30 UNITS in Pre-Filled Syringe 1 EACH SC SCH (08:44)
--- NOTE | 2019-03-28 10:01 | PRG ---
DATE OF SERVICE: 03/28/2019 SUBJECTIVE: Patricia Edmondson remains sedated for ventilation. She will move her extremities when stimulated equally. OBJECTIVE: VITAL SIGNS: Blood pressure 147/65, heart rate in 70s, respiratory rate 22. Intake and output, -1836. LUNGS: Clear anteriorly. HEART: Regular rhythm. S1 and S2 are normal. ABDOMEN: Soft and nontender. EXTREMITIES: Without edema. NEUROLOGIC: Nonfocal. LABORATORY AND DIAGNOSTIC DATA: Chest x-ray continues to show slow improvement in her pulmonary edema. PH 7.48, CO2 of 43, PO2 of 66. IMPRESSION: 1. Respiratory failure secondary to pneumonia. 2. History of cardiogenic and noncardiogenic pulmonary edema. 3. Chronic obstructive pulmonary disease, suspected and apparent clinically this admission. 4. Deconditioning. 5. Tobacco use up until this admission. PLAN: We will continue to try to make slow progress weaning. She probably will not be a candidate for extubation before Sunday or Sunday at the earliest. She is making progress, but it is quite slow. Critical care time is 35 minutes. Job ID: [id number] MTDD
--- NOTE | 2019-03-28 13:31 | PDOC.CTH ---
Cardiology Progress Note - Subjective Intubated sedated. On vent - Objective Vital Signs Temp Pulse Resp BP Pulse Ox 03/28/19 13:24 68 03/28/19 10:24 72 03/28/19 10:00 98.7 F 17 03/28/19 08:34 147/65 H 03/28/19 08:00 98.9 F 18 96 03/28/19 07:11 87 03/28/19 06:00 15 03/28/19 04:00 98.5 F 28 H 03/28/19 02:24 79 17 99 03/28/19 02:00 20 Admit Weight 228 lb 2.855 oz Weight 217 lb 2.485 oz 03/27/19 03/28/19 03/29/19 06:59 06:59 06:59 Intake Total 2799.2 2019 60 Output Total 3910 3855 810 Balance -1110.8 -1836 -750 - Physical Examination General/Neuro: NAD Neck: carotid US brisk, no JVD present Lungs: CTA, unlabored respirations Heart: PMI normal, RRR Abdomen: NT/ND, soft Extremities: + femoral B - Labs Result Diagrams: 03/28/19 04:05 03/28/19 04:05 Troponin/CKMB CK-MB (CK-2) 6.2 ng/mL (0-6.6) 03/20/19 06:21 Troponin I 0.570 ng/mL (< 0.028) H* 03/20/19 06:21 - Assessment/Plan Cardiomyopathy of unknown etiology pneumonia Respiratory failure Cardiogenic shock CV status stable Inc coreg On lisinopril and spironolactone Vent support per pulmonary Abx
[2019-03-28] MEDS: Carvedilol 3.125 MG TAB PO SCH ×2 (16:48→19:29)
[2019-03-28] MEDS: Enoxaparin Sodium 40 MG/0.4 ML SYRINGE SC SCH (19:30)
[2019-03-28] MEDS: Rosuvastatin 5 MG TAB PO SCH (19:32)
[2019-03-28] MEDS: [UNRECOGNIZED DRUG - OTHER] SC SCH (19:41)
[2019-03-28] MEDS: INSULIN GLARGINE SC SCH (19:41)
[2019-03-28] MEDS ORDERED: Propofol 1,000 MG/100 ML VIAL IV ONE (20:39)
--- NOTE | 2019-03-28 21:42 | PRG ---
DATE OF SERVICE: 03/28/2019 SUBJECTIVE: The patient is a 53-year-old female with asthma, who presented to the emergency room by EMS with respiratory failure. Her O2 sats in the emergency room were in 80s. She was started on mechanical ventilation. Broad-spectrum antibiotics were started for pneumonia. Due to elevated BNP around 400 range, an echocardiogram was done that showed ejection fraction of 15% to 20% with [id number] mitral regurgitation. She was started on IV diuretics along with digoxin and beta-blockers. Digoxin has been discontinued by Cardiology. She is also on IV steroids. The patient remains on mechanical ventilation. No overnight events. REVIEW OF SYSTEMS: Cannot be obtained from the patient due to current cognitive status. OBJECTIVE: VITAL SIGNS: Weight of 217 pounds. Intake 2019, output 3855. Temperature 99, blood pressure of 151/70, respirations of 19, pulse rate of 92, O2 saturation of 100% on vent. GENERAL: A 53-year-old female on mechanical ventilation. LUNGS: Showed diminished air entry at bilateral bases with scattered rhonchi. HEART: S1, S2 present. Regular. No rubs or gallops. ABDOMEN: Soft. Bowel sounds present. EXTREMITIES: No calf tenderness. NEUROLOGIC: Cannot be done due to current mentation. LABORATORY FINDINGS: 1. WBC 20.6, hemoglobin 12.7, hematocrit 39.3, platelets 284. 2. ABGs today showed pH 7.48 with pCO2 of 43.3, bicarbonate of 31.4, pO2 of 66.9. 3. Chemistry showed sodium 135, potassium 4.1, chloride 96, bicarb 31, BUN 35, creatinine 0.65. 4. Blood culture negative. 5. Respiratory culture, few normal respiratory simin with few yeast. IMPRESSION: 1. Acute hypoxic respiratory failure secondary to pneumonia with asthma exacerbation. 2. Sepsis with acute organ dysfunction secondary to pneumonia, suspected pneumococcal. 3. New-onset systolic heart failure, ejection fraction 15% to 20%, with congestive heart failure exacerbation. 4. Hyperkalemia, improved. 5. Hyponatremia. 6. Metabolic acidosis. 7. Type 2 myocardial infarction due to increased demand. 8. Diabetes mellitus type 2 with diabetic neuropathy. 9. Chronic kidney disease stage 2. 10. Hypertension. 11. Chronic pain syndrome. 12. Hyperlipidemia. 13. Obesity with a BMI of 36.8. PLAN: 1. Lantus dose will be increased to 35 units b.i.d. We will continue IV steroids with cefepime. Sedation protocol. Carvedilol dose has been increased to 6.25 t.i.d. Continue 40 mg oral Lasix. We will add MiraLAX for constipation. Continue lisinopril. 2. A.m. labs. Job ID: [id number]
[2019-03-28] MEDS: Milk Of Magnesia 30 ML UDCUP PER TUBE PRN (21:55)
[2019-03-28] MEDS: Senokot S 8.6-50 MG TAB PER TUBE SCH (21:55)
[2019-03-28] MEDS: Polyethylene Glycol 3350 17 GM Packet PER TUBE SCH (21:55)
[2019-03-29] MEDS: methylPREDNISolone Sod Succ 40 MG VIAL IVP SCH ×3 (00:13→19:51)
[2019-03-29] MEDS: Insulin Regular 300 UNITS/3 ML VIAL SC PRN ×4 (00:14→19:54)
[2019-03-29] MEDS: fentaNYL Citrate/PF 2,000 MCG in Sodium Chloride 0.9% 60 ML IV SCH (00:50)
[2019-03-29] MEDS: Lorazepam 2 MG/ML VIAL SLOW IVP PRN (02:49)
[2019-03-29 05:35] LABS: Anion Gap 12 mmol/L (10-20); BUN (Urea Nitrogen) 34 mg/dL (9.8-20.1); Calc. Creatinine Clearance 170 mL/min (70-130); Calcium 8.7 mg/dL (7.8-10.44); Carbon Dioxide 31 mmol/L (22-29); Chloride 96 mmol/L (98-107); Estimated GFR-MDRD Greater than 90; Glucose 234 mg/dL (70-105); Potassium 4.4 mmol/L (3.5-5.1); Sodium 135 mmol/L (136-145)
[2019-03-29 05:43] LABS: Hemoglobin 12.2 g/dL (12.0-16.0); Lymphocytes 7 % (21-51); MDiff Complete? YES; Mean Corpuscular HGB CONC 31.8 g/dL (32.0-36.0); Mean Corpuscular Hemoglobin 29.1 pg (27.0-31.0); Mean Corpuscular Volume 91.5 fL (78.0-98.0); Mean Platelet Volume 8.6 fL (7.4-10.4); Monocytes 5 % (0-10); Neutrophil 88 % (42-75); Platelet Count 291 thou/uL (130-400); Platelet Morphology Comment Appears Adequate; RBC Distribution Width 13.5 % (11.5-14.5); RBC Morphology Normal; White Blood Cell (WBC) Count 17.7 thou/uL (4.8-10.8)
[2019-03-29 07:15] LABS: CO2 Tension 41.6 mmHg (35.0-45.0)
[2019-03-29 07:16] LABS: Base Excess (BEa) 8.1 mEq/L (-2.0 to +3.0); Calcium, Ionized 1.13 mmol/L (1.12-1.30); Carboxyhemoglobin (COHb) 1.7 gm% (0.0-3.0); Hemoglobin (Hb) 13.4 g/dL (12.0-16.0); Potassium - ABG Lab 4.17 mmol/L (3.70-5.30)
[2019-03-29 07:20] LABS: Puncture Site RRA
--- NOTE | 2019-03-29 08:26 | PDOC.CTH ---
Cardiology Progress Note - Subjective Pt is chair currently. Sedated. On vent. - Objective Vital Signs Temp Pulse Resp BP 03/29/19 07:00 82 03/29/19 06:00 25 H 03/29/19 04:00 99.1 F 21 H 03/29/19 03:45 77 142/65 H 03/29/19 02:00 25 H 03/29/19 00:00 100.1 F H 21 H 03/28/19 23:58 78 03/28/19 22:00 17 Admit Weight 228 lb 2.855 oz Weight 218 lb 14.704 oz 03/28/19 03/29/19 03/30/19 06:59 06:59 06:59 Intake Total 20182 Output Total 3855 2480 Balance -1836 632 - Physical Examination General/Neuro: NAD Neck: no JVD present Lungs: CTA, unlabored respirations Heart: PMI normal, RRR Abdomen: NT/ND, soft Extremities: + femoral B - Labs Result Diagrams: 03/29/19 04:51 03/29/19 04:51 Troponin/CKMB CK-MB (CK-2) 6.2 ng/mL (0-6.6) 03/20/19 06:21 Troponin I 0.570 ng/mL (< 0.028) H* 03/20/19 06:21 - Assessment/Plan Cardiomyopathy of unknown etiology pneumonia Respiratory failure Cardiogenic shock 03/29 REC NO changes Continue current CV managment Anticipate repeating echo prior to DC and see if EF still low Dr. Otto to fu on Wednesday 03/28 REC CV status stable Inc coreg On lisinopril and spironolactone Vent support per pulmonary Abx
[2019-03-29] MEDS: Cefepime 2 GM in Sodium Chloride 0.9% 100 ML IVPB SCH ×2 (09:08→19:50)
[2019-03-29] MEDS: Famotidine/PF 20 mg/2ml Vial SLOW IVP SCH ×2 (09:09→19:50)
[2019-03-29] MEDS: Lisinopril 10 MG TAB PO SCH ×2 (09:18→19:49)
[2019-03-29] MEDS: Insulin Glargine 35 UNITS in Pre-Filled Syringe SC SCH (09:18)
[2019-03-29] MEDS: Milk Of Magnesia 30 ML UDCUP PER TUBE PRN (09:18)
[2019-03-29] MEDS: Senokot S 8.6-50 MG TAB PER TUBE SCH ×2 (09:18→19:49)
[2019-03-29] MEDS: Furosemide 40 MG TAB PO SCH (09:19)
[2019-03-29] MEDS: Spironolactone 25 MG TAB PO SCH (09:19)
[2019-03-29] MEDS: Carvedilol 3.125 MG TAB PO SCH ×3 (09:19→19:50)
--- NOTE | 2019-03-29 09:42 | RAD ---
CHEST 1 VIEW: Date: 03/29/19 INDICATION: Daily CCU examination and intubation. COMPARISON: Prior exam dated 03/28/19. FINDINGS: There is improvement in the central edema pattern and pulmonary vascular congestion. Cardiomegaly per sists. ET tube and gastric catheter are unchanged. No pneumothorax is evident. Small bilateral pleura l effusions persist. IMPRESSION: 1. Improvement in the central edema pattern. 2. Stable ET tube and gastric catheter. POS: BH
[2019-03-29] MEDS ORDERED: fentaNYL Citrate/PF 2,000 MCG in Sodium Chloride 0.9% 60 ML IV SCH (10:30)
--- NOTE | 2019-03-29 11:02 | PRG ---
DATE OF SERVICE: 03/29/2019 TIME SPENT: 35 minutes critical time. SUBJECTIVE: The patient remains intubated on mechanical ventilation. She will wake up, does not follow commands very rigorously. She is currently sedated on Precedex. OBJECTIVE: VITAL SIGNS: Temperature is 99.2, pulse 73, blood pressure 138/69. 24-hour intake 3112, output 2480. HEENT: Unremarkable. NECK: No JVD. LUNGS: Coarse rhonchi. CARDIAC: S1 and S2. Regular. ABDOMEN: Soft, obese, nontender. EXTREMITIES: No clubbing, cyanosis, or edema. LABORATORY DATA: White blood cell count 17.7, hematocrit 38.4, and platelet count 291. PH 7.50, pCO2 of 41, pO2 of 64, on SIMV rate 4, tidal volume 500, PEEP 5, pressure support 10, FiO2 of 35%. Sodium 135, potassium 4.4, chloride 96, CO2 of 31, BUN 34, creatinine 0.6, glucose 234. ASSESSMENT: 1. Acute respiratory failure requiring mechanical ventilation. 2. Pneumonia. 3. Chronic obstructive pulmonary disease. PLAN: Spontaneous breathing trial. I think limitation towards getting her extubation is her continued altered mental status. Hopefully that will continue to improve. I am highly considering extubating her tomorrow if she does well today. That decision will be made early tomorrow morning. I have weaned her steroid dose. Job ID: [id number]
[2019-03-29] MEDS: Propofol 1,000 MG/100 ML VIAL IV PRN (16:19)
--- NOTE | 2019-03-29 17:44 | PDOC.PN ---
- Subjective Encounter Start Date: 03/29/19 (f/u resp failure) Encounter Start Time: 17:40 Subjective: Pt remains intubated no overnight event - Objective Resuscitation Status - Order Detail: 03/19/19 10:49 Resuscitation Status Routine Resuscitation Status: FULL: Full Resuscitation Vital Signs & Weight: Vital Signs (12 hours) Temp Pulse Pulse Pulse Resp BP BP 03/29/19 16:11 86 03/29/19 16:00 99.3 F 23 H 03/29/19 14:00 20 03/29/19 13:58 71 19 03/29/19 13:38 74 03/29/19 12:00 99.7 F H 22 H 03/29/19 10:45 72 03/29/19 10:00 22 H 03/29/19 09:18 176/92 H 03/29/19 09:10 80 89 136/69 03/29/19 08:00 99.2 F 20 03/29/19 07:00 82 03/29/19 06:00 25 H BP Pulse Ox Pulse Ox Pulse Ox 03/29/19 16:11 03/29/19 16:00 03/29/19 14:00 03/29/19 13:58 98 03/29/19 13:38 03/29/19 12:00 03/29/19 10:45 03/29/19 10:00 03/29/19 09:18 03/29/19 09:10 176/92 H 100 100 03/29/19 08:00 100 03/29/19 07:00 03/29/19 06:00 Weight Admit Weight 228 lb 2.855 oz Weight 218 lb 14.704 oz Most Recent Monitor Data Heart Rate from ECG 73 NIBP 127/68 NIBP BP-Mean 87 Respiration from ECG 19 SpO2 98 I&O: 03/28/19 03/29/19 03/30/19 06:59 06:59 06:59 Intake Total 0135 2092 40 Output Total 6513 8838 6892 [id number] [phone] [phone] Result Diagrams: 03/29/19 04:51 03/29/19 04:51 Additional Labs: Accuchecks 03/29/19 03/29/19 03/29/19 13:44 08:26 03:45 POC Glucose 151 H 219 H 207 H 03/28/19 03/28/19 23:43 19:26 POC Glucose 230 H 218 H EKG Reviewed by me: Yes (sinus rhythm, rate 70's) Phys Exam - Physical Examination Constitutional: NAD Respiratory: no wheezing, no rales, no rhonchi Cardiovascular: RRR, no significant murmur Gastrointestinal: soft, positive bowel sounds Musculoskeletal: no edema no spontaneous movement Deviation from normal: unable to assess Skin: no rash Dx/Plan (1) Acute respiratory failure with hypoxia Code(s): J96.01 - ACUTE RESPIRATORY FAILURE WITH HYPOXIA Status: Acute (2) Acute systolic heart failure Code(s): I50.21 - ACUTE SYSTOLIC (CONGESTIVE) HEART FAILURE Status: Acute (3) Diabetes mellitus Code(s): E11.9 - TYPE 2 DIABETES MELLITUS WITHOUT COMPLICATIONS Status: Chronic (4) HLD (hyperlipidemia) Code(s): E78.5 - HYPERLIPIDEMIA, UNSPECIFIED Status: Chronic (5) HTN (hypertension) Code(s): I10 - ESSENTIAL (PRIMARY) HYPERTENSION Status: Chronic (6) Sepsis Code(s): A41.9 - SEPSIS, UNSPECIFIED ORGANISM Status: Acute (7) Obesity Code(s): E66.9 - OBESITY, UNSPECIFIED Status: Acute Qualifiers: Obesity type: unspecified obesity type Obesity classification: adult class 2 (BMI 35 - 39.9) Body mass index: BMI 35.0-35.9 (8) Chronic pain Code(s): G89.29 - OTHER CHRONIC PAIN Status: Chronic Qualifiers: Chronic pain type: other chronic pain Qualified Code(s): G89.29 - Other chronic pain (9) Hyponatremia Code(s): E87.1 - HYPO-OSMOLALITY AND HYPONATREMIA Status: Acute - Plan * Appreciate Pulmonology consult - weaning on vent * on steroids, broad spectrum abx, nebs * Appreciate Cardiology consult - EF 15-20% - following with plan to repeat echo * blood sugars improved today - on long and short-acting insulin * * dvt prophy - lovenox * gi prophy - famotidine * code status full * * Pt remains at high risk in current condition.
[2019-03-29] MEDS: Enoxaparin Sodium 40 MG/0.4 ML SYRINGE SC SCH (19:50)
[2019-03-29] MEDS: Polyethylene Glycol 3350 17 GM Packet PER TUBE SCH (19:50)
[2019-03-29] MEDS: INSULIN GLARGINE SC SCH (19:53)
[2019-03-29] MEDS: Rosuvastatin 5 MG TAB PO SCH (19:53)
[2019-03-29] MEDS: [UNRECOGNIZED DRUG - OTHER] SC SCH (19:53)
[2019-03-30] MEDS: Insulin Regular 300 UNITS/3 ML VIAL SC PRN ×2 (00:09→04:26)
[2019-03-30 05:18] LABS: Anion Gap 14 mmol/L (10-20); BUN (Urea Nitrogen) 31 mg/dL (9.8-20.1); Calc. Creatinine Clearance 151 mL/min (70-130); Calcium 8.7 mg/dL (7.8-10.44); Carbon Dioxide 28 mmol/L (22-29); Chloride 97 mmol/L (98-107); Estimated GFR-MDRD 90; Glucose 250 mg/dL (70-105); Potassium 4.9 mmol/L (3.5-5.1); Sodium 134 mmol/L (136-145)
[2019-03-30 05:38] LABS: Band 4 % (5-11); Eosinophils 1 % (0-10); Lymphocytes 15 % (21-51); MDiff Complete? YES; Mean Corpuscular HGB CONC 32.3 g/dL (32.0-36.0); Mean Corpuscular Hemoglobin 29.8 pg (27.0-31.0); Mean Platelet Volume 9.6 fL (7.4-10.4); Monocytes 3 % (0-10); Neutrophil 77 % (42-75); Platelet Count 247 thou/uL (130-400); Platelet Morphology Comment Appears Adequate; RBC Distribution Width 13.9 % (11.5-14.5); RBC Morphology Normal; Red Blood Cell (RBC) Count 4.05 mill/uL (4.20-5.40); White Blood Cell (WBC) Count 17.6 thou/uL (4.8-10.8)
[2019-03-30 07:15] LABS: Actual Bicarbonate (HCO3a) 30.2 mEq/L (22-28); CO2 Tension 41.8 mmHg (35.0-45.0); Calcium, Ionized 1.12 mmol/L (1.12-1.30); Carboxyhemoglobin (COHb) 1.2 gm% (0.0-3.0); Hemoglobin (Hb) 12.1 g/dL (12.0-16.0); O2 Tension (PaO2) 73.7 mmHg (80.0-100.0); Potassium - ABG Lab 3.78 mmol/L (3.70-5.30); pH, Arterial 7.48 (7.35-7.45)
[2019-03-30 07:23] LABS: Puncture Site LR
[2019-03-30] MEDS: Senokot S 8.6-50 MG TAB PER TUBE SCH ×2 (08:20→21:30)
[2019-03-30] MEDS: Lisinopril 10 MG TAB PO SCH ×2 (08:20→21:30)
[2019-03-30] MEDS: Carvedilol 3.125 MG TAB PO SCH ×3 (08:20→21:30)
[2019-03-30] MEDS: methylPREDNISolone Sod Succ 40 MG VIAL IVP SCH ×2 (08:22→20:31)
[2019-03-30] MEDS: Furosemide 40 MG TAB PO SCH (08:22)
[2019-03-30] MEDS: Cefepime 2 GM in Sodium Chloride 0.9% 100 ML IVPB SCH ×2 (08:22→20:30)
[2019-03-30] MEDS: Spironolactone 25 MG TAB PO SCH (08:22)
[2019-03-30] MEDS: Famotidine/PF 20 mg/2ml Vial SLOW IVP SCH ×2 (08:22→20:31)
[2019-03-30] MEDS: Insulin Glargine 35 UNITS in Pre-Filled Syringe SC SCH (09:02)
--- NOTE | 2019-03-30 09:13 | RAD ---
CHEST 1 VIEW: Date: 03/30/19 INDICATION: Daily CCU examination for ventilation. FINDINGS: There is worsening central edema pattern and cardiomegaly. There are small bilateral pleural effusion s. No pneumothorax is evident. ET tube and gastric catheter are unchanged. IMPRESSION: 1. Worsening central edema pattern, cardiomegaly, and pleural effusions. 2. ET tube and gastric catheter are unchanged. 3. No pneumothorax. POS: BH
--- NOTE | 2019-03-30 09:20 | PRG ---
DATE OF SERVICE: 03/30/2019 35 minutes critical care time. SUBJECTIVE: The patient remains intubated on mechanical ventilation. She was on spontaneous breathing all night and has done well. She will look around. She will follow some spurious commands, but overall she is not very cooperative with what I ask her to do. OBJECTIVE: VITAL SIGNS: Temperature 98.9, pulse 81, blood pressure 155/87. Currently sedated on Precedex. Total intake for 24 hours 2133, output 2185. HEENT: Unremarkable. NECK: No adenopathy or JVD. LUNGS: Fairly clear anteriorly bilaterally. CARDIAC: S1, S2. Regular. ABDOMEN: Soft, nontender, obese. EXTREMITIES: No clubbing, cyanosis, or edema. LABORATORY DATA: White blood cell count 17.6, hematocrit 37.2, and platelet count 247. PH 7.48, pCO2 of 41, pO2 of 73 on CPAP 5, pressure support 10, FiO2 35%. Sodium 134, potassium 4.9, chloride 97, CO2 of 28, BUN 31, creatinine 0.7, glucose 250. ASSESSMENT: 1. Acute respiratory failure, requiring mechanical ventilation. 2. Pneumonia. 3. Chronic obstructive pulmonary disease. PLAN: 1. Extubation trial. 2. Continue antibiotics. 3. Discontinue Precedex. 4. One dose of furosemide IV. Job ID: [id number]
[2019-03-30] MEDS ORDERED: Furosemide 40 MG/4 ML VIAL SLOW IVP SCH (12:00)
--- NOTE | 2019-03-30 16:13 | PDOC.PN ---
- Subjective Encounter Start Date: 03/30/19 (f/u resp failure) Encounter Start Time: 16:11 Subjective: Pt extubated today. No overnight events. She did not pass the -: bedside swallow study - currently NPO - Objective Resuscitation Status - Order Detail: 03/19/19 10:49 Resuscitation Status Routine Resuscitation Status: FULL: Full Resuscitation Vital Signs & Weight: Vital Signs (12 hours) Temp Pulse Resp BP Pulse Ox 03/30/19 14:45 86 15 98 03/30/19 12:00 98.8 F 98 03/30/19 10:42 74 22 H 95 03/30/19 08:55 96 03/30/19 08:20 155/87 H 03/30/19 08:00 98.9 F 13 97 03/30/19 06:50 82 03/30/19 06:00 20 Weight Admit Weight 228 lb 2.855 oz Weight 212 lb 1.355 oz Most Recent Monitor Data Heart Rate from ECG 85 NIBP 151/73 NIBP BP-Mean 99 Respiration from ECG 26 SpO2 94 I&O: 03/29/19 03/30/19 03/31/19 06:59 06:59 06:59 Intake Total 3112 2133 208 Output Total 2480 2185 1525 Balance 078 -11 -5330 Result Diagrams: 03/30/19 04:17 03/30/19 04:17 Additional Labs: Accuchecks 03/30/19 03/30/19 03/30/19 12:28 04:13 00:00 POC Glucose 90 237 H 195 H 03/29/19 03/29/19 19:50 16:40 POC Glucose 166 H 146 H EKG Reviewed by me: Yes (arrythmia last night - pac's, brief and ? non- conducted p. Now sinus 70's) Phys Exam - Physical Examination Constitutional: NAD Respiratory: no wheezing, no rales, no rhonchi Cardiovascular: RRR, no significant murmur Gastrointestinal: soft, non-tender, positive bowel sounds Musculoskeletal: no edema looks around, oriented to person Deviation from normal: Unable to adequately assess - appears encephalopathic Dx/Plan (1) Acute respiratory failure with hypoxia Code(s): J96.01 - ACUTE RESPIRATORY FAILURE WITH HYPOXIA Status: Acute (2) Acute systolic heart failure Code(s): I50.21 - ACUTE SYSTOLIC (CONGESTIVE) HEART FAILURE Status: Acute (3) Diabetes mellitus Code(s): E11.9 - TYPE 2 DIABETES MELLITUS WITHOUT COMPLICATIONS Status: Chronic Qualifiers: Diabetes mellitus type: type 2 Diabetes mellitus fdc insulin use: with terminal operations supervisor use (4) HLD (hyperlipidemia) Code(s): E78.5 - HYPERLIPIDEMIA, UNSPECIFIED Status: Chronic (5) HTN (hypertension) Code(s): I10 - ESSENTIAL (PRIMARY) HYPERTENSION Status: Chronic (6) Sepsis Code(s): A41.9 - SEPSIS, UNSPECIFIED ORGANISM Status: Acute (7) Obesity Code(s): E66.9 - OBESITY, UNSPECIFIED Status: Acute Qualifiers: Obesity type: unspecified obesity type Obesity classification: adult class 2 (BMI 35 - 39.9) Body mass index: BMI 35.0-35.9 (8) Chronic pain Code(s): G89.29 - OTHER CHRONIC PAIN Status: Chronic Qualifiers: Chronic pain type: other chronic pain Qualified Code(s): G89.29 - Other chronic pain (9) Hyponatremia Code(s): E87.1 - HYPO-OSMOLALITY AND HYPONATREMIA Status: Acute - Plan * Appreciate Pulmonology consult - extubated today * on steroids, broad spectrum abx, nebs * Appreciate Cardiology consult - EF 15-20% - following with plan to repeat echo * currently NPO - RN to contact Dr. Ahuja regards beta-lei and marquita-i * on lasix * blood sugars are 80-90's today and pt is NPO - will d/c the scheduled lantus tonight. Continue q4h accuchecks and prn meds for hypoglycemia * * speech consult to assess swallow - NPO until then * continue pt/ot * dvt prophy - lovenox * gi prophy - famotidine * code status full * * Pt remains at high risk in current condition.
[2019-03-30] MEDS: Enoxaparin Sodium 40 MG/0.4 ML SYRINGE SC SCH (20:30)
[2019-03-30] MEDS: Polyethylene Glycol 3350 17 GM Packet PER TUBE SCH (21:30)
[2019-03-30] MEDS: Rosuvastatin 5 MG TAB PO SCH (21:30)
[2019-03-31 05:00] LABS: Anion Gap 13 mmol/L (10-20); BUN (Urea Nitrogen) 25 mg/dL (9.8-20.1); Calc. Creatinine Clearance 171 mL/min (70-130); Calcium 9.2 mg/dL (7.8-10.44); Carbon Dioxide 31 mmol/L (22-29); Chloride 99 mmol/L (98-107); Estimated GFR-MDRD Greater than 90; Glucose 83 mg/dL (70-105); Potassium 3.8 mmol/L (3.5-5.1); Sodium 139 mmol/L (136-145)
[2019-03-31 05:08] LABS: Band 1 % (5-11); Hemoglobin 13.1 g/dL (12.0-16.0); Lymphocytes 7 % (21-51); MDiff Complete? YES; Mean Corpuscular HGB CONC 31.9 g/dL (32.0-36.0); Mean Corpuscular Hemoglobin 29.4 pg (27.0-31.0); Mean Corpuscular Volume 91.9 fL (78.0-98.0); Mean Platelet Volume 8.3 fL (7.4-10.4); Monocytes 8 % (0-10); Neutrophil 84 % (42-75); Platelet Count 343 thou/uL (130-400); Platelet Morphology Comment Appears Adequate; RBC Distribution Width 13.6 % (11.5-14.5); Red Blood Cell (RBC) Count 4.45 mill/uL (4.20-5.40); White Blood Cell (WBC) Count 19.4 thou/uL (4.8-10.8)
[2019-03-31] MEDS ORDERED: hydrALAZINE 20 MG/ML VIAL SLOW IVP PRN (07:50)
--- NOTE | 2019-03-31 07:56 | PDOC.PN ---
- Subjective Encounter Start Date: 03/31/19 (f/u resp failure) Encounter Start Time: 07:53 Subjective: No overnight events, pt remains NPO for failed swallow study, -: to be re-evaluated today. - Objective Resuscitation Status - Order Detail: 03/19/19 10:49 Resuscitation Status Routine Resuscitation Status: FULL: Full Resuscitation Vital Signs & Weight: Vital Signs (12 hours) Temp Pulse Resp BP Pulse Ox 03/31/19 07:37 100 03/31/19 07:35 83 23 H 97 03/31/19 04:00 98.2 F 03/31/19 03:56 94 L 03/31/19 00:00 98.4 F 03/30/19 22:26 80 18 92 L 03/30/19 21:30 155/87 H 03/30/19 20:00 98.7 F 95 Weight Admit Weight 228 lb 2.855 oz Weight 205 lb 7.533 oz Most Recent Monitor Data Heart Rate from ECG 88 NIBP 181/96 NIBP BP-Mean 124 Respiration from ECG 18 SpO2 97 I&O: 03/30/19 03/31/19 04/01/19 06:59 06:59 06:59 Intake Total 2133 495 Output Total 2185 2910 Balance -52 -2415 Result Diagrams: 03/31/19 04:15 03/31/19 04:15 Additional Labs: Accuchecks 03/30/19 03/30/19 03/30/19 23:36 21:28 16:02 POC Glucose 86 70 81 03/30/19 03/30/19 12:28 08:52 POC Glucose 90 123 H EKG Reviewed by me: Yes (tele - sinus 80's) Phys Exam - Physical Examination Constitutional: NAD Respiratory: no wheezing, no rales, no rhonchi Cardiovascular: RRR, no significant murmur Gastrointestinal: soft, non-tender, no distention, positive bowel sounds Musculoskeletal: no edema Neurological: moves all 4 limbs decreased movement in left arm/hand following some commands Dx/Plan (1) Acute respiratory failure with hypoxia Code(s): J96.01 - ACUTE RESPIRATORY FAILURE WITH HYPOXIA Status: Acute (2) Acute systolic heart failure Code(s): I50.21 - ACUTE SYSTOLIC (CONGESTIVE) HEART FAILURE Status: Acute (3) Diabetes mellitus Code(s): E11.9 - TYPE 2 DIABETES MELLITUS WITHOUT COMPLICATIONS Status: Chronic Qualifiers: Diabetes mellitus type: type 2 Diabetes mellitus terminal make up operator insulin use: with penitentiary use (4) HLD (hyperlipidemia) Code(s): E78.5 - HYPERLIPIDEMIA, UNSPECIFIED Status: Chronic (5) HTN (hypertension) Code(s): I10 - ESSENTIAL (PRIMARY) HYPERTENSION Status: Chronic (6) Sepsis Code(s): A41.9 - SEPSIS, UNSPECIFIED ORGANISM Status: Acute (7) Obesity Code(s): E66.9 - OBESITY, UNSPECIFIED Status: Acute Qualifiers: Obesity type: unspecified obesity type Obesity classification: adult class 2 (BMI 35 - 39.9) Body mass index: BMI 35.0-35.9 (8) Chronic pain Code(s): G89.29 - OTHER CHRONIC PAIN Status: Chronic Qualifiers: Chronic pain type: other chronic pain Qualified Code(s): G89.29 - Other chronic pain (9) Hyponatremia Code(s): E87.1 - HYPO-OSMOLALITY AND HYPONATREMIA Status: Acute - Plan * Uncontrolled BP's in pt with cardiomyopathy and low EF, and currently NPO * Change to low dose IV metoprolol and IV enalaprilat * prn hydralazine * Appreciate Pulmonology consult - extubated yesterday * on steroids, broad spectrum abx, nebs * Appreciate Cardiology consult - EF 15-20% - following with plan to repeat echo * currently NPO * lasix was changed to PO and is currently on hold * blood sugars are 80-90's today and pt is NPO - d/c all scheduled long-acting insulin for now * * speech consult to assess swallow - NPO until then * continue pt/ot * dvt prophy - lovenox * gi prophy - famotidine * code status full * * Pt remains at high risk in current condition *
[2019-03-31] MEDS: Spironolactone 25 MG TAB PO SCH (08:30)
[2019-03-31] MEDS: Carvedilol 3.125 MG TAB PO SCH ×3 (08:30→20:55)
[2019-03-31] MEDS: Senokot S 8.6-50 MG TAB PER TUBE SCH ×2 (08:31→20:55)
[2019-03-31] MEDS: Lisinopril 10 MG TAB PO SCH ×2 (08:31→20:55)
[2019-03-31] MEDS: methylPREDNISolone Sod Succ 40 MG VIAL IVP SCH ×2 (08:34→20:54)
[2019-03-31] MEDS: Famotidine/PF 20 mg/2ml Vial SLOW IVP SCH ×2 (08:34→20:54)
[2019-03-31] MEDS ORDERED: Enalaprilat Dihydrate 1.25 MG in Dextrose 5% in Water 50 ML IVPB SCH (09:00)
[2019-03-31] MEDS: Metoprolol Tartrate 5 MG/5 ML VIAL IVP SCH ×3 (10:00→19:59)
--- NOTE | 2019-03-31 10:05 | RAD ---
CHEST 1 VIEW: INDICATION: CT examination while intubated. COMPARISON: Prior exam dated 03/30/2019. FINDINGS: The patient has been intervally extubated. There is persistent central edema; however, slightly impr paulo. Pulmonary vascular congestion is slightly improved. The cardiomegaly persists. Gastric romy ter is removed. Small bilateral pleural effusions, left greater than right, are stable. No pneumoth orax is evident. IMPRESSION: 1. Interval extubation with removal of the gastric catheter. 2. There is mild improvement in the central edema pattern. POS: BH
[2019-03-31] MEDS ORDERED: hydrALAZINE 20 MG/ML VIAL SLOW IVP SCH (11:00)
[2019-03-31] MEDS: Enalaprilat Dihydrate 1.25 MG/ML VIAL SLOW IVP SCH ×2 (12:31→17:26)
--- NOTE | 2019-03-31 15:26 | PRG ---
DATE OF SERVICE: 03/31/2019 SUBJECTIVE: Ms. Edmondson was extubated over the weekend. She is in her neuro chair at bedside. OBJECTIVE: VITAL SIGNS: She is afebrile. Oximetry is 95% on room air, heart rate in the 90s, respiratory rate 18, blood pressure 166/91. LUNGS: Clear. HEART: Regular rhythm. S1 and S2 are normal. ABDOMEN: Soft and nontender. EXTREMITIES: Without clubbing, cyanosis, or edema. LABORATORY DATA: White count 19.4, hemoglobin 13.1, platelets 343. Sodium 139, potassium 3.8, chloride 99, bicarb 31, BUN 25, creatinine 0.59. IMPRESSION: 1. Respiratory failure, secondary to pneumonia. 2. Mixture of cardiogenic and noncardiogenic pulmonary edema. 3. Systolic cardiomyopathy. 4. Tobacco use up until admission. 5. Underlying chronic obstructive pulmonary disease. 6. Deconditioning, weakness , and critical illness encephalopathy. We will continue with supportive care. I would keep her in the critical care unit for now. Job ID: [id number] MTDD
[2019-03-31] MEDS: Enoxaparin Sodium 40 MG/0.4 ML SYRINGE SC SCH (20:54)
[2019-03-31] MEDS: Polyethylene Glycol 3350 17 GM Packet PER TUBE SCH (20:55)
[2019-03-31] MEDS: Rosuvastatin 5 MG TAB PO SCH (20:55)
[2019-03-31] MEDS ORDERED: Dextrose 5 %-0.45 % NaCl 1,000 ML IV SCH (21:30)
--- NOTE | 2019-03-31 21:31 | PDOC.EVN ---
Event Note - Event Note Event Note: Reviewing orders and no notes from speech therapy with regards to swallowing. Pt has been extubated for more than 24 hours, has been NPO. Will start some gentle IVF for now and overnight monitoring for volume overload, with plan to d/ c when diet is advanced.
[2019-04-01] MEDS: Enalaprilat Dihydrate 1.25 MG/ML VIAL SLOW IVP SCH ×4 (00:29→18:48)
[2019-04-01] MEDS: Insulin Regular 300 UNITS/3 ML VIAL SC PRN ×4 (00:36→17:24)
[2019-04-01] MEDS: Metoprolol Tartrate 5 MG/5 ML VIAL IVP SCH ×4 (02:57→20:52)
[2019-04-01 05:34] LABS: Band 2 % (5-11); Hemoglobin 14.5 g/dL (12.0-16.0); Lymphocytes 5 % (21-51); MDiff Complete? YES; Mean Corpuscular HGB CONC 31.8 g/dL (32.0-36.0); Mean Corpuscular Hemoglobin 28.8 pg (27.0-31.0); Mean Corpuscular Volume 90.7 fL (78.0-98.0); Mean Platelet Volume 8.6 fL (7.4-10.4); Monocytes 1 % (0-10); Neutrophil 92 % (42-75); Platelet Count 373 thou/uL (130-400); Platelet Morphology Comment Appears Adequate; RBC Morphology Normal; Red Blood Cell (RBC) Count 5.03 mill/uL (4.20-5.40); White Blood Cell (WBC) Count 18.5 thou/uL (4.8-10.8)
[2019-04-01 05:36] LABS: Anion Gap 14 mmol/L (10-20); BUN (Urea Nitrogen) 20 mg/dL (9.8-20.1); Calc. Creatinine Clearance 167 mL/min (70-130); Calcium 9.1 mg/dL (7.8-10.44); Carbon Dioxide 23 mmol/L (22-29); Chloride 100 mmol/L (98-107); Estimated GFR-MDRD Greater than 90; Glucose 193 mg/dL (70-105); Potassium 4.2 mmol/L (3.5-5.1); Sodium 133 mmol/L (136-145)
--- NOTE | 2019-04-01 07:55 | PDOC.PN ---
- Subjective Encounter Start Date: 04/01/19 (f/u resp failure) Encounter Start Time: 07:53 Subjective: Pt denies pain, extubated 2 days ago. - Objective Resuscitation Status - Order Detail: 03/19/19 10:49 Resuscitation Status Routine Resuscitation Status: FULL: Full Resuscitation Vital Signs & Weight: Vital Signs (12 hours) Temp Pulse Resp BP Pulse Ox 04/01/19 06:53 96 04/01/19 06:51 95 28 H 96 04/01/19 06:05 165/88 H 04/01/19 04:33 94 L 04/01/19 03:00 99.0 F 04/01/19 00:29 153/86 H 03/31/19 23:10 96 03/31/19 23:00 98.9 F 03/31/19 20:55 146/79 H 03/31/19 20:00 95 Weight Admit Weight 228 lb 2.855 oz Weight 206 lb 12.697 oz Most Recent Monitor Data Heart Rate from ECG 93 NIBP 165/88 NIBP BP-Mean 113 Respiration from ECG 30 SpO2 95 I&O: 03/31/19 04/01/19 04/02/19 06:59 06:59 06:59 Intake Total 495 700 Output Total 2910 4165 Balance -6091 -778 Result Diagrams: 04/01/19 05:02 04/01/19 05:02 Additional Labs: Accuchecks 04/01/19 04/01/19 03/31/19 04:18 00:36 20:15 POC Glucose 201 H 171 H 100 03/31/19 03/31/19 03/31/19 16:33 13:29 08:44 POC Glucose 138 H 128 H 74 03/31/19 03:39 POC Glucose 82 EKG Reviewed by me: Yes (tele - sinus 90's) Phys Exam - Physical Examination Constitutional: NAD Respiratory: no wheezing, no rales, no rhonchi Cardiovascular: RRR, no significant murmur Gastrointestinal: soft, non-tender, no distention, positive bowel sounds Musculoskeletal: no edema decreased movement in arms and legs Deviation from normal: awake, not oriented to time/place/situation Skin: no rash Dx/Plan (1) Acute respiratory failure with hypoxia Code(s): J96.01 - ACUTE RESPIRATORY FAILURE WITH HYPOXIA Status: Acute (2) Acute systolic heart failure Code(s): I50.21 - ACUTE SYSTOLIC (CONGESTIVE) HEART FAILURE Status: Acute (3) Diabetes mellitus Code(s): E11.9 - TYPE 2 DIABETES MELLITUS WITHOUT COMPLICATIONS Status: Chronic Qualifiers: Diabetes mellitus type: type 2 Diabetes mellitus terminal block assembler insulin use: with terminal block assembler use (4) HLD (hyperlipidemia) Code(s): E78.5 - HYPERLIPIDEMIA, UNSPECIFIED Status: Chronic (5) HTN (hypertension) Code(s): I10 - ESSENTIAL (PRIMARY) HYPERTENSION Status: Chronic (6) Sepsis Code(s): A41.9 - SEPSIS, UNSPECIFIED ORGANISM Status: Acute (7) Obesity Code(s): E66.9 - OBESITY, UNSPECIFIED Status: Acute Qualifiers: Obesity type: unspecified obesity type Obesity classification: adult class 2 (BMI 35 - 39.9) Body mass index: BMI 35.0-35.9 (8) Chronic pain Code(s): G89.29 - OTHER CHRONIC PAIN Status: Chronic Qualifiers: Chronic pain type: other chronic pain Qualified Code(s): G89.29 - Other chronic pain (9) Hyponatremia Code(s): E87.1 - HYPO-OSMOLALITY AND HYPONATREMIA Status: Acute - Plan * IVF for gentle hydration overnight as pt had been NPO secondary to failed swallow study * change to NS at 50 ml/hr and d/c when cleared by speech * * bp's stable - on IV metoprolol and enalaprilat - change to oral meds when cleared by speech * Appreciate Pulmonology consult - extubated 2 days ago * on steroids, broad spectrum abx, nebs * Appreciate Cardiology consult - EF 15-20% - following with plan to repeat echo * currently NPO * lasix was changed to PO and is currently on hold pending swallow eval * blood sugars elevated today due to D5 - no indication for long acting insulin - resume when taking PO based on blood sugars * * speech consult to assess swallow - NPO until then * continue pt/ot * dvt prophy - lovenox * gi prophy - famotidine * code status full * * Pt remains at high risk in current condition.
[2019-04-01] MEDS: Spironolactone 25 MG TAB PO SCH ×2 (08:00→12:18)
[2019-04-01] MEDS: Famotidine/PF 20 mg/2ml Vial SLOW IVP SCH ×2 (08:50→20:43)
[2019-04-01] MEDS: Sodium Chloride 0.9% 1,000 ML IV SCH (08:50)
[2019-04-01] MEDS: Carvedilol 3.125 MG TAB PO SCH ×4 (09:15→20:44)
[2019-04-01] MEDS: Lisinopril 10 MG TAB PO SCH ×2 (09:16→12:17)
[2019-04-01] MEDS: Senokot S 8.6-50 MG TAB PER TUBE SCH ×2 (09:16→20:45)
[2019-04-01] MEDS: methylPREDNISolone Sod Succ 40 MG VIAL IVP SCH (09:20)
--- NOTE | 2019-04-01 09:20 | RAD ---
PORTABLE CHEST: HISTORY: Respiratory distress. COMPARISON: Prior day's study. FINDINGS: Heart size is enlarged. Pulmonary vessels appear mildly engorged. There are some increased parahila r lung markings still suggesting some element of edema similar to the prior exam. IMPRESSION: Stable exam. POS: OFF
--- NOTE | 2019-04-01 15:43 | PRG ---
DATE OF SERVICE: 04/01/2019 SUBJECTIVE: Ms. Edmondson can barely lift her arms off the bed and hold them up. She looks stronger. She made more eye contact today and was quicker to answer questions. OBJECTIVE: VITAL SIGNS: Blood pressure 156/86, heart rate 94, respiratory rates in the 20s, oximetry is 97% on 2 L. LUNGS: Clear. HEART: Regular rhythm. ABDOMEN: Soft, nontender. EXTREMITIES: Without edema. LABORATORY DATA: White count 18.5, hemoglobin 14.5, platelets 373,000. Sodium 133, potassium 4.2, chloride 100, bicarb 23, BUN 20, creatinine 0.59. IMPRESSION: 1. Respiratory failure secondary to pneumonia. 2. Systolic heart failure. She still has some mild interstitial changes on her chest x-ray. Overall, she appears to be slowly improving. Probably tomorrow, she may be a candidate to transfer out of critical care unit. She is still on the IV Vasotec for blood pressure. She continues to receive her nebulized treatments every 4 hours. She is also on lisinopril by mouth. Her Solu-Medrol is 40 mg total per day, we will cut that back to 20 mg a day. Her sedation protocol is still on the medication administration list, so this is being removed as I dictate this. We will stop doing daily chest x-rays on her. Job ID: [id number]
[2019-04-01] MEDS: Rosuvastatin 5 MG TAB PO SCH (20:42)
[2019-04-01] MEDS: Enoxaparin Sodium 40 MG/0.4 ML SYRINGE SC SCH (20:43)
[2019-04-01] MEDS: Polyethylene Glycol 3350 17 GM Packet PER TUBE SCH (20:43)
[2019-04-02] MEDS: Sodium Chloride 0.9% 1,000 ML IV SCH (05:34)
[2019-04-02 05:39] LABS: Band 2 % (5-11); Hemoglobin 13.8 g/dL (12.0-16.0); Lymphocytes 23 % (21-51); MDiff Complete? YES; Mean Corpuscular HGB CONC 31.4 g/dL (32.0-36.0); Mean Corpuscular Hemoglobin 28.7 pg (27.0-31.0); Mean Corpuscular Volume 91.4 fL (78.0-98.0); Metamyelocyte 1 % (0-0); Monocytes 8 % (0-10); Neutrophil 66 % (42-75); Platelet Count 370 thou/uL (130-400); Platelet Morphology Comment Appears Adequate; RBC Distribution Width 13.7 % (11.5-14.5); White Blood Cell (WBC) Count 15.3 thou/uL (4.8-10.8)
[2019-04-02 05:43] LABS: Anion Gap 12 mmol/L (10-20); BUN (Urea Nitrogen) 14 mg/dL (9.8-20.1); Calc. Creatinine Clearance 150 mL/min (70-130); Carbon Dioxide 27 mmol/L (22-29); Chloride 102 mmol/L (98-107); Estimated GFR-MDRD Greater than 90; Glucose 159 mg/dL (70-105); Potassium 4.1 mmol/L (3.5-5.1); Sodium 137 mmol/L (136-145)
[2019-04-02] MEDS: Insulin Regular 300 UNITS/3 ML VIAL SC PRN ×4 (07:45→20:40)
--- NOTE | 2019-04-02 07:55 | PDOC.PN ---
- Subjective Encounter Start Date: 04/02/19 (f/u ARF) Encounter Start Time: 07:53 Subjective: Pt remains on supplemental oxygen, weak. No overnight events. -: diet advanced to thickened liquids, spoon fed - pt taking very little - Objective Resuscitation Status - Order Detail: 03/19/19 10:49 Resuscitation Status Routine Resuscitation Status: FULL: Full Resuscitation Vital Signs & Weight: Vital Signs (12 hours) Temp Pulse Resp Pulse Ox 04/02/19 06:34 89 25 H 96 04/02/19 04:00 98.0 F 04/02/19 02:39 85 20 96 04/02/19 00:00 98.3 F 04/01/19 22:13 90 20 94 L 04/01/19 20:00 98.3 F 95 Weight Admit Weight 228 lb 2.855 oz Weight 205 lb 0.478 oz Most Recent Monitor Data Heart Rate from ECG 94 NIBP 143/83 NIBP BP-Mean 103 Respiration from ECG 26 SpO2 94 I&O: 04/01/19 04/02/19 04/03/19 06:59 06:59 06:59 Intake Total 700 1536 Output Total 1575 2322 45 Balance -875 -786 -45 Result Diagrams: 04/02/19 05:10 04/02/19 05:10 Additional Labs: Accuchecks 04/02/19 04/02/19 04/01/19 04:51 01:14 21:06 POC Glucose 150 H 149 H 129 H 04/01/19 04/01/19 17:22 15:07 POC Glucose 183 H 211 H Phys Exam - Physical Examination Constitutional: NAD Respiratory: no wheezing, no rales, no rhonchi, clear to auscultation bilateral Cardiovascular: RRR, no significant murmur Gastrointestinal: soft, non-tender, no distention, positive bowel sounds Musculoskeletal: no edema 2-/5 strength of LUE, 3/5 strength RUE, able to lift both legs off bed Deviation from normal: awake, not oriented to place/time/situation Dx/Plan (1) Acute respiratory failure with hypoxia Code(s): J96.01 - ACUTE RESPIRATORY FAILURE WITH HYPOXIA Status: Acute (2) Acute systolic heart failure Code(s): I50.21 - ACUTE SYSTOLIC (CONGESTIVE) HEART FAILURE Status: Acute (3) Diabetes mellitus Code(s): E11.9 - TYPE 2 DIABETES MELLITUS WITHOUT COMPLICATIONS Status: Chronic Qualifiers: Diabetes mellitus type: type 2 Diabetes mellitus senior care insulin use: with buttermaker continuous churn use (4) HLD (hyperlipidemia) Code(s): E78.5 - HYPERLIPIDEMIA, UNSPECIFIED Status: Chronic (5) HTN (hypertension) Code(s): I10 - ESSENTIAL (PRIMARY) HYPERTENSION Status: Chronic (6) Sepsis Code(s): A41.9 - SEPSIS, UNSPECIFIED ORGANISM Status: Acute (7) Obesity Code(s): E66.9 - OBESITY, UNSPECIFIED Status: Acute Qualifiers: Obesity type: unspecified obesity type Obesity classification: adult class 2 (BMI 35 - 39.9) Body mass index: BMI 35.0-35.9 (8) Chronic pain Code(s): G89.29 - OTHER CHRONIC PAIN Status: Chronic Qualifiers: Chronic pain type: other chronic pain Qualified Code(s): G89.29 - Other chronic pain (9) Hyponatremia Code(s): E87.1 - HYPO-OSMOLALITY AND HYPONATREMIA Status: Acute - Plan * Appreciate Pulmonology consult - extubated 3 days ago * on steroids, broad spectrum abx, nebs * Appreciate Cardiology consult - EF improved to 30-35% % - * bp's improved * currently on modified diet with little PO intake * lasix PO, beta-lei and spironolactone * blood sugars controlled - add back long-acting insulin when consistently taking PO * * speech consult appreciated - continue to advance diet as deemed possible by ST. * Pt with little PO intake - will leave IVF for now - d/c when taking more PO * * continue pt/ot - significant weakness from this illness * dvt prophy - lovenox * gi prophy - famotidine * code status full * * Pt remains at high risk in current condition
[2019-04-02] MEDS: Carvedilol 3.125 MG TAB PO SCH (08:56)
[2019-04-02] MEDS: Spironolactone 25 MG TAB PO SCH (08:56)
[2019-04-02] MEDS: Famotidine/PF 20 mg/2ml Vial SLOW IVP SCH (09:18)
[2019-04-02] MEDS: methylPREDNISolone Sod Succ 40 MG VIAL IVP SCH (09:19)
[2019-04-02] MEDS: Senokot S 8.6-50 MG TAB PER TUBE SCH ×2 (09:19→20:39)
[2019-04-02] MEDS: Carvedilol 6.25 MG TAB PO SCH (16:56)
[2019-04-02] MEDS ORDERED: Carvedilol 3.125 MG TAB PO SCH (17:00)
[2019-04-02] MEDS: Famotidine 20 MG TAB PO SCH (20:39)
[2019-04-02] MEDS: Enoxaparin Sodium 40 MG/0.4 ML SYRINGE SC SCH (20:40)
[2019-04-02] MEDS: Rosuvastatin 5 MG TAB PO SCH (20:40)
[2019-04-02] MEDS: Polyethylene Glycol 3350 17 GM Packet PER TUBE SCH (20:48)
--- NOTE | 2019-04-02 21:07 | PRG ---
DATE OF SERVICE: 04/02/2019 SUBJECTIVE: Ms. Edmondson is each day a little bit quicker to respond to questions. OBJECTIVE: VITAL SIGNS: She is afebrile. Oximetry is 94% on 2 L. Heart rate in the 70s, blood pressure 134/78. Intake and outputs -786. LUNGS: Clear. HEAD AND NECK: Unchanged. HEART: Regular rhythm. S1 and S2, normal. ABDOMEN: Soft and nontender. EXTREMITIES: Without clubbing, cyanosis, or edema. She still has a great deal of difficulty lifting her arms off the bed. IMPRESSION: 1. Status post respiratory failure that is acute for pneumonia. 2. Chronic obstructive pulmonary disease. 3. 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 Where she had to have a catheterization complication and needs bypass surgery, she would not tolerate mechanical ventilation in the weaning process postoperatively, a workup for her heart has to be put on hold for now. PLAN: 1. We will continue to follow with the other physicians. She needs to remain in the critical care unit for now. 2. We will continue the Pepcid and DVT prophylaxis. 3. She will continue nebulized treatments. Her steroids have been cut back to 20 mg of Medrol a day. 4. She is still gently receiving a little IV fluid. She is on Crestor and a low dose of Aldactone. Job ID: [id number]
[2019-04-03] MEDS: Sodium Chloride 0.9% 1,000 ML IV SCH ×2 (00:15→19:14)
[2019-04-03 05:09] LABS: Anion Gap 12 mmol/L (10-20); BUN (Urea Nitrogen) 15 mg/dL (9.8-20.1); Calc. Creatinine Clearance 168 mL/min (70-130); Calcium 9.2 mg/dL (7.8-10.44); Carbon Dioxide 26 mmol/L (22-29); Chloride 104 mmol/L (98-107); Estimated GFR-MDRD Greater than 90; Glucose 145 mg/dL (70-105); Potassium 3.8 mmol/L (3.5-5.1); Sodium 138 mmol/L (136-145)
[2019-04-03 05:28] LABS: Lymphocytes 16 % (21-51); MDiff Complete? YES; Mean Corpuscular HGB CONC 32.3 g/dL (32.0-36.0); Mean Corpuscular Hemoglobin 29.6 pg (27.0-31.0); Mean Corpuscular Volume 91.6 fL (78.0-98.0); Mean Platelet Volume 8.6 fL (7.4-10.4); Monocytes 1 % (0-10); Neutrophil 82 % (42-75); Platelet Count 381 thou/uL (130-400); Platelet Morphology Comment Appears Adequate; RBC Distribution Width 13.7 % (11.5-14.5); RBC Morphology Normal; Reactive Lymphocytes 1 % (0-10); Red Blood Cell (RBC) Count 4.72 mill/uL (4.20-5.40); White Blood Cell (WBC) Count 14.6 thou/uL (4.8-10.8)
[2019-04-03] MEDS: Spironolactone 25 MG TAB PO SCH (07:57)
[2019-04-03] MEDS: Insulin Regular 300 UNITS/3 ML VIAL SC PRN ×4 (07:58→20:09)
[2019-04-03] MEDS: Carvedilol 6.25 MG TAB PO SCH ×2 (07:58→16:11)
[2019-04-03] MEDS: Famotidine 20 MG TAB PO SCH ×2 (08:04→20:08)
[2019-04-03] MEDS: Senokot S 8.6-50 MG TAB PER TUBE SCH ×2 (08:04→20:08)
[2019-04-03] MEDS: methylPREDNISolone Sod Succ 40 MG VIAL IVP SCH (09:30)
[2019-04-03] MEDS: Sacubitril 49 MG/Valsartan 51 MG TABLET PO SCH ×2 (11:09→20:10)
--- NOTE | 2019-04-03 12:13 | PDOC.PN ---
- Subjective Encounter Start Date: 04/03/19 Encounter Start Time: 10:10 -: old records requested/rev Patient seen and examined. No new complaints. No overnight events - Objective Resuscitation Status - Order Detail: 03/19/19 10:49 Resuscitation Status Routine Resuscitation Status: FULL: Full Resuscitation MAR Reviewed: Yes Vital Signs & Weight: Vital Signs (12 hours) Temp Pulse Resp BP Pulse Ox 04/03/19 11:10 83 31 H 94 L 04/03/19 11:00 97.6 F 04/03/19 08:00 94 L 04/03/19 07:58 152/85 H 04/03/19 07:00 98.5 F 04/03/19 06:41 92 22 H 93 L 04/03/19 04:00 97.9 F 04/03/19 02:31 83 22 H 96 Weight Admit Weight 228 lb 2.855 oz Weight 208 lb 1.862 oz Most Recent Monitor Data Heart Rate from ECG 86 NIBP 120/79 NIBP BP-Mean 92 Respiration from ECG 29 SpO2 93 I&O: 04/02/19 04/03/19 04/04/19 06:59 06:59 06:59 Intake Total 1536 1582 Output Total 2322 2375 205 Balance -786 -793 -205 Result Diagrams: 04/03/19 04:09 04/03/19 04:09 Additional Labs: Accuchecks 04/03/19 04/03/19 04/03/19 07:18 04:07 00:15 POC Glucose 164 H 137 H 133 H 04/02/19 04/02/19 04/02/19 20:15 16:47 12:16 POC Glucose 179 H 211 H 196 H Radiology Reviewed by me: Yes EKG Reviewed by me: Yes Phys Exam - Physical Examination Constitutional: NAD HEENT: moist MMs, sclera anicteric Neck: no JVD, supple Respiratory: no wheezing, no rales, no rhonchi Cardiovascular: RRR, no significant murmur Gastrointestinal: soft, non-tender, no distention, positive bowel sounds Musculoskeletal: no edema, pulses present Neurological: non-focal, normal sensation Lymphatic: no nodes Psychiatric: normal affect Skin: no rash, normal turgor Dx/Plan (1) Acute respiratory failure with hypoxia Code(s): J96.01 - ACUTE RESPIRATORY FAILURE WITH HYPOXIA Status: Acute (2) Acute systolic ACC/AHA stage C congestive heart failure Code(s): I50.21 - ACUTE SYSTOLIC (CONGESTIVE) HEART FAILURE Status: Acute (3) Cardiomyopathy Code(s): I42.9 - CARDIOMYOPATHY, UNSPECIFIED Status: Acute (4) Hyponatremia Code(s): E87.1 - HYPO-OSMOLALITY AND HYPONATREMIA Status: Acute (5) NSTEMI (non-ST elevated myocardial infarction) Code(s): I21.4 - NON-ST ELEVATION (NSTEMI) MYOCARDIAL INFARCTION Status: Acute Comment: Type II (6) Pneumonia Code(s): J18.9 - PNEUMONIA, UNSPECIFIED ORGANISM Status: Acute (7) Sepsis Code(s): A41.9 - SEPSIS, UNSPECIFIED ORGANISM Status: Acute (8) CKD (chronic kidney disease), stage II Code(s): N18.2 - CHRONIC KIDNEY DISEASE, STAGE 2 (MILD) Status: Chronic (9) Chronic pain Code(s): G89.29 - OTHER CHRONIC PAIN Status: Chronic Qualifiers: Chronic pain type: other chronic pain Qualified Code(s): G89.29 - Other chronic pain (10) Diabetes type 2, controlled Code(s): E11.9 - TYPE 2 DIABETES MELLITUS WITHOUT COMPLICATIONS Status: Chronic (11) HLD (hyperlipidemia) Code(s): E78.5 - HYPERLIPIDEMIA, UNSPECIFIED Status: Chronic (12) HTN (hypertension) Code(s): I10 - ESSENTIAL (PRIMARY) HYPERTENSION Status: Chronic (13) Obesity (BMI 30.0-34.9) Code(s): E66.9 - OBESITY, UNSPECIFIED Status: Chronic - Plan cont current plan of care, continue antibiotics * medication reviewed as below * symptomatic treatment * overall stable and improving * transfer to [facility] when pulmonary ok * currently on optimum medical therapy * will monitor. Review of Systems - Review of Systems ENT: negative: Ear Pain, Ear Discharge, Nose Pain, Nose Discharge, Nose Congestion, Mouth Pain, Mouth Swelling, Throat Pain, Throat Swelling, Other Respiratory: Cough, Shortness of Breath. negative: Dry, Hemoptysis, SOB with Excertion, Pleuritic Pain, Sputum, Wheezing Cardiovascular: negative: chest pain, palpitations, orthopnea, paroxysmal nocturnal dyspnea, edema, light headedness, other Gastrointestinal: negative: Nausea, Vomiting, Abdominal Pain, Diarrhea, Constipation, Melena, Hematochezia, Other Genitourinary: negative: Dysuria, Frequency, Incontinence, Hematuria, Retention , Other Musculoskeletal: negative: Neck Pain, Shoulder Pain, Arm Pain, Back Pain, Hand Pain, Leg Pain, Foot Pain, Other - Medications/Allergies Allergies/Adverse Reactions: Allergies Allergy/AdvReac Type Severity Reaction Status Date / Time asa fillers Allergy Uncoded 03/19/19 11:55 Medications: Current Medications Acetaminophen (Tylenol) 650 mg PO Q4H PRN PRN Reason: Headache/Fever/Mild Pain (1-3) Last Admin: 03/23/19 09:15 Dose: 650 mg Albuterol/Ipratropium (Duoneb) 3 ml NEB [id number] [facility] Last Admin: 04/03/19 11:10 Dose: 3 ml Bisacodyl (Dulcolax) 10 mg MS DAILYPRN PRN PRN Reason: Constipation Last Admin: 03/28/19 08:32 Dose: 10 mg Carvedilol (Coreg) 12.5 mg PO BID-WM [facility] Last Admin: 04/03/19 07:58 Dose: 12.5 mg Dextrose/Water (Dextrose 50%) 25 gm SLOW IVP PRN PRN PRN Reason: Hypoglycemia Enoxaparin Sodium (Lovenox) 40 mg SC 2100 [facility] Last Admin: 04/02/19 20:40 Dose: 40 mg Famotidine (Pepcid) 20 mg PO Q12HR [facility] Last Admin: 04/03/19 08:04 Dose: 20 mg Glucagon (Glucagon) 1 mg IM PRN PRN PRN Reason: Hypoglycemia Hydralazine HCl (Apresoline) 10 mg SLOW IVP Q4H PRN PRN Reason: SBP Greater Than 180 Last Admin: 03/31/19 08:10 Dose: 10 mg Dextrose/Water (D5w) 1,000 mls @ 0 mls/hr IV .Q0M PRN PRN Reason: Hypoglycemia Sodium Chloride (Normal Saline 0.9%) 1,000 mls @ 50 mls/hr IV .Q20H [facility] Last Admin: 04/03/19 00:15 Dose: 1,000 mls Insulin Human Regular (Humulin R) 0 units SC .AGGRESSIVE SLIDING PRN PRN Reason: Aggressive Correctional Scale Last Admin: 04/03/19 11:49 Dose: 6 unit Magnesium Hydroxide (Milk Of Magnesium) 30 ml PER TUBE DAILYPRN PRN PRN Reason: Constipation Last Admin: 03/29/19 09:18 Dose: 30 ml Methylprednisolone Sodium Succinate (Solu-Medrol) 20 mg IVP DAILY [facility] Last Admin: 04/03/19 09:30 Dose: 20 mg Mineral Oil/White Petrolatum (Systane Nighttime Eye Ointment) 0 gm EA EYE PRN PRN PRN Reason: Dry Eyes Nitroglycerin (Nitrostat) 0.4 mg PO Q5MIN PRN PRN Reason: Chest Pain Discontinue Previous Narcotic Pain Medications And Benzodiazepines 1 each FS .ONE [facility] Stop: 04/18/19 11:07 Polyethylene Glycol (Miralax) 17 gm PER TUBE [facility] Last Admin: 04/02/19 20:48 Dose: Not Given Rosuvastatin Calcium (Crestor) 5 mg PO HS [facility] Last Admin: 04/02/19 20:40 Dose: 5 mg Sacubitril/Valsartan (Entresto 49 Mg-51 Mg Tablet) 1 tab PO BID [facility] Last Admin: 04/03/19 11:09 Dose: 1 tab Senna/Docusate Sodium (Senokot S) 2 tab PER TUBE BID [facility] Last Admin: 04/03/19 08:04 Dose: 2 tab Sodium Chloride (Flush - Normal Saline) 10 ml IVF PRN PRN PRN Reason: Saline Flush Last Admin: 03/23/19 20:40 Dose: 10 ml Spironolactone (Aldactone) 25 mg PO QAM-WM [facility] Last Admin: 04/03/19 07:57 Dose: 25 mg
--- NOTE | 2019-04-03 16:56 | PRG ---
DATE OF SERVICE: 04/03/2019 SUBJECTIVE: Ms. Edmondson has no complaints, still does not know where she is. She still can barely lift her arms off the bed. She is in no distress, however. OBJECTIVE: GENERAL: in no distress today. VITAL SIGNS: Intake and outputs -793. Heart rate 92, respiratory rates in the teens to low 20s, blood pressure 129/84, and oximetry is 97% on 2 L. HEAD AND NECK: Unremarkable. LUNGS: Clear. HEART: Regular rhythm. S1 and S2 are normal. ABDOMEN: Soft and nontender. EXTREMITIES: No clubbing, cyanosis, or edema. NEUROLOGIC: Remarkable for Four extremity weakness that is severe. IMPRESSION: 1. Status post mechanical ventilation for pneumonia combined with congestive heart failure. 2. Systolic cardiomyopathy, it is new. 3. Chronic obstructive pulmonary disease, it is a new diagnosis. 4. Critical illness myopathy. Her steroid dosing has been decreased. She will need to go into some type of rehab environment until she recovers. If she remains medically stable, probably can be transferred out of the critical care unit sometime this weekend, but at this point in time, she has no ability to reach across and hit a call button and we have no family that is able to stay with her from what I understand. Job ID: [id number] [facility]
[2019-04-03] MEDS: Polyethylene Glycol 3350 17 GM Packet PER TUBE SCH (20:08)
[2019-04-03] MEDS: Enoxaparin Sodium 40 MG/0.4 ML SYRINGE SC SCH (20:08)
[2019-04-03] MEDS: Rosuvastatin 5 MG TAB PO SCH (20:09)
[2019-04-04 04:18] LABS: Anion Gap 11 mmol/L (10-20); BUN (Urea Nitrogen) 13 mg/dL (9.8-20.1); Calc. Creatinine Clearance 165 mL/min (70-130); Calcium 9.2 mg/dL (7.8-10.44); Carbon Dioxide 25 mmol/L (22-29); Chloride 106 mmol/L (98-107); Estimated GFR-MDRD Greater than 90; Glucose 146 mg/dL (70-105); Potassium 3.4 mmol/L (3.5-5.1); Sodium 139 mmol/L (136-145)
[2019-04-04 04:23] LABS: Band 1 % (5-11); Eosinophils 1 % (0-10); Hemoglobin 14.6 g/dL (12.0-16.0); Lymphocytes 27 % (21-51); MDiff Complete? YES; Mean Corpuscular HGB CONC 32.2 g/dL (32.0-36.0); Mean Corpuscular Hemoglobin 29.2 pg (27.0-31.0); Mean Corpuscular Volume 90.7 fL (78.0-98.0); Mean Platelet Volume 8.6 fL (7.4-10.4); Monocytes 4 % (0-10); Neutrophil 65 % (42-75); Platelet Count 358 thou/uL (130-400); RBC Distribution Width 13.8 % (11.5-14.5); Reactive Lymphocytes 2 % (0-10)
[2019-04-04] MEDS: Insulin Regular 300 UNITS/3 ML VIAL SC PRN ×4 (08:35→20:51)
[2019-04-04] MEDS: Carvedilol 6.25 MG TAB PO SCH (08:40)
[2019-04-04] MEDS: Sacubitril 49 MG/Valsartan 51 MG TABLET PO SCH ×2 (08:40→20:50)
[2019-04-04] MEDS: Spironolactone 25 MG TAB PO SCH (08:40)
[2019-04-04] MEDS: methylPREDNISolone Sod Succ 40 MG VIAL IVP SCH (08:41)
[2019-04-04] MEDS: Senokot S 8.6-50 MG TAB PER TUBE SCH ×2 (08:41→20:47)
[2019-04-04] MEDS: Famotidine 20 MG TAB PO SCH ×2 (08:41→20:47)
[2019-04-04] MEDS ORDERED: Carvedilol 6.25 MG TAB PO SCH (11:58)
--- NOTE | 2019-04-04 12:03 | PDOC.PN ---
- Subjective Encounter Start Date: 04/04/19 Encounter Start Time: 10:15 Patient seen and examined. No new complaints. No overnight events - Objective Resuscitation Status - Order Detail: 03/19/19 10:49 Resuscitation Status Routine Resuscitation Status: FULL: Full Resuscitation MAR Reviewed: Yes Vital Signs & Weight: Vital Signs (12 hours) Temp Pulse Resp BP Pulse Ox 04/04/19 11:15 97 19 99 04/04/19 08:40 153/105 H 04/04/19 07:44 102 H 21 H 99 04/04/19 04:00 98.8 F 04/04/19 02:19 89 20 94 L Weight Admit Weight 228 lb 2.855 oz Weight 206 lb 9.17 oz Most Recent Monitor Data Heart Rate from ECG 98 NIBP 134/89 NIBP BP-Mean 104 Respiration from ECG 18 SpO2 98 I&O: 04/03/19 04/04/19 04/05/19 06:59 06:59 06:59 Intake Total 1582 1828 Output Total 2375 1771 Balance -793 57 Result Diagrams: 04/04/19 03:20 04/04/19 03:20 Additional Labs: Accuchecks 04/04/19 04/03/19 04/03/19 08:13 23:54 20:02 POC Glucose 173 H 140 H 270 H 04/03/19 04/03/19 16:16 11:50 POC Glucose 238 H 219 H EKG Reviewed by me: Yes Phys Exam - Physical Examination Constitutional: NAD HEENT: PERRLA, moist MMs, sclera anicteric Neck: no JVD, supple Respiratory: no wheezing, no rales, no rhonchi Cardiovascular: RRR, no significant murmur, no rub Gastrointestinal: soft, non-tender, no distention, positive bowel sounds Musculoskeletal: no edema, pulses present Neurological: non-focal, moves all 4 limbs Lymphatic: no nodes Psychiatric: normal affect Skin: no rash, normal turgor Dx/Plan (1) Acute respiratory failure with hypoxia Code(s): J96.01 - ACUTE RESPIRATORY FAILURE WITH HYPOXIA Status: Acute (2) Acute systolic ACC/AHA stage C congestive heart failure Code(s): I50.21 - ACUTE SYSTOLIC (CONGESTIVE) HEART FAILURE Status: Acute (3) Cardiomyopathy Code(s): I42.9 - CARDIOMYOPATHY, UNSPECIFIED Status: Acute (4) Hyponatremia Code(s): E87.1 - HYPO-OSMOLALITY AND HYPONATREMIA Status: Acute (5) NSTEMI (non-ST elevated myocardial infarction) Code(s): I21.4 - NON-ST ELEVATION (NSTEMI) MYOCARDIAL INFARCTION Status: Acute Comment: Type II (6) Pneumonia Code(s): J18.9 - PNEUMONIA, UNSPECIFIED ORGANISM Status: Acute (7) Sepsis Code(s): A41.9 - SEPSIS, UNSPECIFIED ORGANISM Status: Acute (8) CKD (chronic kidney disease), stage II Code(s): N18.2 - CHRONIC KIDNEY DISEASE, STAGE 2 (MILD) Status: Chronic (9) Chronic pain Code(s): G89.29 - OTHER CHRONIC PAIN Status: Chronic Qualifiers: Chronic pain type: other chronic pain Qualified Code(s): G89.29 - Other chronic pain (10) Diabetes type 2, controlled Code(s): E11.9 - TYPE 2 DIABETES MELLITUS WITHOUT COMPLICATIONS Status: Chronic (11) HLD (hyperlipidemia) Code(s): E78.5 - HYPERLIPIDEMIA, UNSPECIFIED Status: Chronic (12) HTN (hypertension) Code(s): I10 - ESSENTIAL (PRIMARY) HYPERTENSION Status: Chronic (13) Obesity (BMI 30.0-34.9) Code(s): E66.9 - OBESITY, UNSPECIFIED Status: Chronic - Plan cont current plan of care, PT/OT * medication reviewed as below * symptomatic treatment * continue PT/OT * eventual plan to DC to rehab vs snu. * replace potassium * DC IVF order * coreg increased, on entresto Review of Systems - Review of Systems Constitutional: weakness. negative: fever, chills, sweats, malaise, other ENT: negative: Ear Pain, Ear Discharge, Nose Pain, Nose Discharge, Nose Congestion, Mouth Pain, Mouth Swelling, Throat Pain, Throat Swelling, Other Respiratory: negative: Cough, Dry, Shortness of Breath, Hemoptysis, SOB with Excertion, Pleuritic Pain, Sputum, Wheezing Cardiovascular: negative: chest pain, palpitations, orthopnea, paroxysmal nocturnal dyspnea, edema, light headedness, other Gastrointestinal: negative: Nausea, Vomiting, Abdominal Pain, Diarrhea, Constipation, Melena, Hematochezia, Other Genitourinary: negative: Dysuria, Frequency, Incontinence, Hematuria, Retention , Other Musculoskeletal: negative: Neck Pain, Shoulder Pain, Arm Pain, Back Pain, Hand Pain, Leg Pain, Foot Pain, Other - Medications/Allergies Allergies/Adverse Reactions: Allergies Allergy/AdvReac Type Severity Reaction Status Date / Time asa fillers Allergy Uncoded 03/19/19 11:55 Medications: Current Medications Acetaminophen (Tylenol) 650 mg PO Q4H PRN PRN Reason: Headache/Fever/Mild Pain (1-3) Last Admin: 03/23/19 09:15 Dose: 650 mg Albuterol/Ipratropium (Duoneb) 3 ml NEB [id number] [facility] Last Admin: 04/04/19 11:15 Dose: 3 ml Aspirin (Ecotrin) 81 mg PO DAILY [facility] Bisacodyl (Dulcolax) 10 mg AK DAILYPRN PRN PRN Reason: Constipation Last Admin: 03/28/19 08:32 Dose: 10 mg Carvedilol (Coreg) 25 mg PO BID-WM [facility] Carvedilol (Coreg) 25 mg PO NOW [facility] Stop: 04/04/19 14:00 Dextrose/Water (Dextrose 50%) 25 gm SLOW IVP PRN PRN PRN Reason: Hypoglycemia Enoxaparin Sodium (Lovenox) 40 mg SC 2100 [facility] Last Admin: 04/03/19 20:08 Dose: 40 mg Famotidine (Pepcid) 20 mg PO Q12HR [facility] Last Admin: 04/04/19 08:41 Dose: 20 mg Glucagon (Glucagon) 1 mg IM PRN PRN PRN Reason: Hypoglycemia Hydralazine HCl (Apresoline) 10 mg SLOW IVP Q4H PRN PRN Reason: SBP Greater Than 180 Last Admin: 03/31/19 08:10 Dose: 10 mg Dextrose/Water (D5w) 1,000 mls @ 0 mls/hr IV .Q0M PRN PRN Reason: Hypoglycemia Sodium Chloride (Normal Saline 0.9%) 1,000 mls @ 50 mls/hr IV .Q20H [facility] Last Admin: 04/03/19 19:14 Dose: 1,000 mls Insulin Human Regular (Humulin R) 0 units SC .AGGRESSIVE SLIDING PRN PRN Reason: Aggressive Correctional Scale Last Admin: 04/04/19 08:35 Dose: 3 unit Magnesium Hydroxide (Milk Of Magnesium) 30 ml PER TUBE DAILYPRN PRN PRN Reason: Constipation Last Admin: 03/29/19 09:18 Dose: 30 ml Methylprednisolone Sodium Succinate (Solu-Medrol) 20 mg IVP DAILY [facility] Last Admin: 04/04/19 08:41 Dose: 20 mg Mineral Oil/White Petrolatum (Systane Nighttime Eye Ointment) 0 gm EA EYE PRN PRN PRN Reason: Dry Eyes Nitroglycerin (Nitrostat) 0.4 mg PO Q5MIN PRN PRN Reason: Chest Pain Discontinue Previous Narcotic Pain Medications And Benzodiazepines 1 each FS .ONE [facility] Stop: 04/18/19 11:07 Polyethylene Glycol (Miralax) 17 gm PER TUBE HS [facility] Last Admin: 04/03/19 20:08 Dose: 17 gm Quetiapine Fumarate (Seroquel) 25 mg PO HS [facility] Rosuvastatin Calcium (Crestor) 5 mg PO HS [facility] Last Admin: 04/03/19 20:09 Dose: 5 mg Sacubitril/Valsartan (Entresto 49 Mg-51 Mg Tablet) 1 tab PO BID [facility] Last Admin: 04/04/19 08:40 Dose: 1 tab Senna/Docusate Sodium (Senokot S) 2 tab PER TUBE BID [facility] Last Admin: 04/04/19 08:41 Dose: 2 tab Sodium Chloride (Flush - Normal Saline) 10 ml IVF PRN PRN PRN Reason: Saline Flush Last Admin: 03/23/19 20:40 Dose: 10 ml Spironolactone (Aldactone) 25 mg PO QAM-[facility] Last Admin: 04/04/19 08:40 Dose: 25 mg
[2019-04-04] MEDS ORDERED: Carvedilol 25 MG TAB PO SCH (12:15)
--- NOTE | 2019-04-04 12:46 | PRG ---
DATE OF SERVICE: 04/04/2019 SUBJECTIVE: Ms. Edmondson still encephalopathic, but she gets a little bit better every day. Her strength is improving a little bit every day now and she can hold a pencil, try to write on a piece of paper. OBJECTIVE: VITAL SIGNS: Heart rate is 97 and blood pressure has been in the 150s to 160s overnight. Respiratory rates in the teens, oximetry is 99%. Intake and outputs, negative 793 yesterday and positive 57 today. LUNGS: Clear. HEART: Regular rhythm. ABDOMEN: Soft. EXTREMITIES: Without edema. LABORATORY DATA: White count 16.0, hemoglobin 14.6, and platelets 358. Electrolytes are unremarkable. IMPRESSION: 1. Respiratory failure with pneumonia, acute respiratory distress syndrome and congestive heart failure. 2. New cardiomyopathy, rule out ischemia. She is not a candidate for catheterization at this time because of her severe weakness. 3. Critical illness myopathy. 4. History of hypertension. 5. History of cholesteatoma. 6. History of diabetes. 7. History of asthma, but no history of hospitalizations prior to this. I suspect she has chronic obstructive pulmonary disease secondary to her chronic tobacco use and I believe that is why she did not do as well with bilateral pneumonia she might have if she had no lung disease. In any event, she is improving. The main issues now are related to her muscle weakness and her encephalopathy. Hopefully, her encephalopathy will gradually improve. It appears to be. I suspect she had some significant hypoxemia prior to admission. There is no way to document that, and I certainly do not have any documentation of that at this time. She will continue taking her cardiac medications. Her blood pressure probably needs to be treated a little more aggressively. She probably should stay in the Critical Care Unit. Job ID: [id number]
[2019-04-04] MEDS: Carvedilol 25 MG TAB PO SCH (16:45)
[2019-04-04] MEDS: Enoxaparin Sodium 40 MG/0.4 ML SYRINGE SC SCH (20:42)
[2019-04-04] MEDS: Polyethylene Glycol 3350 17 GM Packet PER TUBE SCH (20:48)
[2019-04-04] MEDS: Rosuvastatin 5 MG TAB PO SCH (20:49)
[2019-04-05] MEDS: Insulin Regular 300 UNITS/3 ML VIAL SC PRN ×3 (00:15→17:25)
[2019-04-05 03:42] VITALS: BMI 33.1
[2019-04-05 06:20] LABS: Anion Gap 13 mmol/L (10-20); BUN (Urea Nitrogen) 18 mg/dL (9.8-20.1); Calc. Creatinine Clearance 147 mL/min (70-130); Carbon Dioxide 24 mmol/L (22-29); Chloride 107 mmol/L (98-107); Estimated GFR-MDRD Greater than 90; Glucose 123 mg/dL (70-105); Potassium 4.1 mmol/L (3.5-5.1); Sodium 140 mmol/L (136-145)
[2019-04-05 06:47] LABS: Band 3 % (5-11); Eosinophils 1 % (0-10); Hemoglobin 14.1 g/dL (12.0-16.0); Lymphocytes 24 % (21-51); MDiff Complete? YES; Mean Corpuscular HGB CONC 31.4 g/dL (32.0-36.0); Mean Corpuscular Hemoglobin 28.6 pg (27.0-31.0); Mean Corpuscular Volume 91.2 fL (78.0-98.0); Mean Platelet Volume 8.3 fL (7.4-10.4); Monocytes 8 % (0-10); Neutrophil 64 % (42-75); Platelet Count 317 thou/uL (130-400); RBC Distribution Width 13.9 % (11.5-14.5); Red Blood Cell (RBC) Count 4.92 mill/uL (4.20-5.40); White Blood Cell (WBC) Count 13.4 thou/uL (4.8-10.8)
[2019-04-05] MEDS: Spironolactone 25 MG TAB PO SCH (08:33)
[2019-04-05] MEDS: Carvedilol 25 MG TAB PO SCH ×2 (08:33→17:25)
[2019-04-05] MEDS: Famotidine 20 MG TAB PO SCH (08:33)
[2019-04-05] MEDS: Aspirin 81 mg Enteric Coated Tablet PO SCH (08:33)
[2019-04-05] MEDS: methylPREDNISolone Sod Succ 40 MG VIAL IVP SCH (08:34)
[2019-04-05] MEDS: Senokot S 8.6-50 MG TAB PER TUBE SCH ×2 (08:36→20:20)
[2019-04-05] MEDS: Sacubitril 49 MG/Valsartan 51 MG TABLET PO SCH ×2 (08:40→20:20)
--- NOTE | 2019-04-05 11:22 | PDOC.PN ---
- Subjective Encounter Start Date: 04/05/19 Encounter Start Time: 09:30 pt's po intake is very limited, due to that her urine output is also low, she is very weak, confused, this morning she was resting, did not have good sleep last night - Objective Resuscitation Status - Order Detail: 03/19/19 10:49 Resuscitation Status Routine Resuscitation Status: FULL: Full Resuscitation MAR Reviewed: Yes Vital Signs & Weight: Vital Signs (12 hours) Temp Pulse Resp Pulse Ox 04/05/19 10:20 87 18 94 L 04/05/19 07:12 95 04/05/19 07:11 83 18 95 04/05/19 04:00 97.9 F 04/05/19 02:19 72 18 94 L 04/05/19 00:00 97.5 F L Weight Admit Weight 228 lb 2.855 oz Weight 206 lb 5.643 oz Most Recent Monitor Data Heart Rate from ECG 83 NIBP 109/69 NIBP BP-Mean 82 Respiration from ECG 20 SpO2 93 I&O: 04/04/19 04/05/19 04/06/19 06:59 06:59 06:59 Intake Total 1828 1036 Output Total 1771 915 20 Balance 57 121 -20 Result Diagrams: 04/05/19 05:48 04/05/19 05:47 Additional Labs: Accuchecks 04/05/19 04/05/19 04/05/19 07:38 03:38 00:08 POC Glucose 133 H 113 H 166 H 04/04/19 04/04/19 04/04/19 20:43 16:33 11:55 POC Glucose 242 H 244 H 260 H EKG Reviewed by me: Yes Phys Exam - Physical Examination Constitutional: NAD HEENT: PERRLA, moist MMs, sclera anicteric Neck: no JVD, supple Respiratory: no wheezing, no rales, no rhonchi Cardiovascular: RRR, no significant murmur, no rub Gastrointestinal: soft, non-tender, no distention, positive bowel sounds Musculoskeletal: no edema, pulses present Neurological: non-focal Lymphatic: no nodes Psychiatric: normal affect Skin: no rash, normal turgor Dx/Plan (1) Acute respiratory failure with hypoxia Code(s): J96.01 - ACUTE RESPIRATORY FAILURE WITH HYPOXIA Status: Acute (2) Acute systolic ACC/AHA stage C congestive heart failure Code(s): I50.21 - ACUTE SYSTOLIC (CONGESTIVE) HEART FAILURE Status: Acute (3) Cardiomyopathy Code(s): I42.9 - CARDIOMYOPATHY, UNSPECIFIED Status: Acute (4) Hyponatremia Code(s): E87.1 - HYPO-OSMOLALITY AND HYPONATREMIA Status: Resolved (5) NSTEMI (non-ST elevated myocardial infarction) Code(s): I21.4 - NON-ST ELEVATION (NSTEMI) MYOCARDIAL INFARCTION Status: Acute Comment: Type II (6) Pneumonia Code(s): J18.9 - PNEUMONIA, UNSPECIFIED ORGANISM Status: Resolved (7) Sepsis Code(s): A41.9 - SEPSIS, UNSPECIFIED ORGANISM Status: Resolved (8) CKD (chronic kidney disease), stage II Code(s): N18.2 - CHRONIC KIDNEY DISEASE, STAGE 2 (MILD) Status: Chronic (9) Chronic pain Code(s): G89.29 - OTHER CHRONIC PAIN Status: Chronic Qualifiers: Chronic pain type: other chronic pain Qualified Code(s): G89.29 - Other chronic pain (10) Diabetes type 2, controlled Code(s): E11.9 - TYPE 2 DIABETES MELLITUS WITHOUT COMPLICATIONS Status: Chronic (11) HLD (hyperlipidemia) Code(s): E78.5 - HYPERLIPIDEMIA, UNSPECIFIED Status: Chronic (12) HTN (hypertension) Code(s): I10 - ESSENTIAL (PRIMARY) HYPERTENSION Status: Chronic (13) Obesity (BMI 30.0-34.9) Code(s): E66.9 - OBESITY, UNSPECIFIED Status: Chronic - Plan cont current plan of care, 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 Review of Systems - Review of Systems Respiratory: negative: Cough, Dry, Shortness of Breath, Hemoptysis, SOB with Excertion, Pleuritic Pain, Sputum, Wheezing Cardiovascular: negative: chest pain, palpitations, orthopnea, paroxysmal nocturnal dyspnea, edema, light headedness, other Gastrointestinal: negative: Nausea, Vomiting, Abdominal Pain, Diarrhea, Constipation, Melena, Hematochezia, Other Genitourinary: negative: Dysuria, Frequency, Incontinence, Hematuria, Retention , Other Musculoskeletal: negative: Neck Pain, Shoulder Pain, Arm Pain, Back Pain, Hand Pain, Leg Pain, Foot Pain, Other Skin: negative: Rash, Lesions, Gt, Bruising, Other - Medications/Allergies Allergies/Adverse Reactions: Allergies Allergy/AdvReac Type Severity Reaction Status Date / Time asa fillers Allergy Uncoded 03/19/19 11:55 Medications: Current Medications Acetaminophen (Tylenol) 650 mg PO Q4H PRN PRN Reason: Headache/Fever/Mild Pain (1-3) Last Admin: 03/23/19 09:15 Dose: 650 mg Albuterol/Ipratropium (Duoneb) 3 ml NEB [id number] [facility] Last Admin: 04/05/19 10:20 Dose: 3 ml Aspirin (Ecotrin) [address] [facility] Last Admin: 04/05/19 08:33 Dose: 81 mg Bisacodyl (Dulcolax) 10 mg [place] DAILYPRN PRN PRN Reason: Constipation Last Admin: 03/28/19 08:32 Dose: 10 mg Carvedilol (Coreg) 25 mg PO BID-WM [facility] Last Admin: 04/05/19 08:33 Dose: 25 mg Dextrose/Water (Dextrose 50%) 25 gm SLOW IVP PRN PRN PRN Reason: Hypoglycemia Enoxaparin Sodium (Lovenox) [address] [facility] Last Admin: 04/04/19 20:42 Dose: 40 mg Glucagon (Glucagon) 1 mg IM PRN PRN PRN Reason: Hypoglycemia Hydralazine HCl (Apresoline) 10 mg SLOW IVP Q4H PRN PRN Reason: SBP Greater Than 180 Last Admin: 03/31/19 08:10 Dose: 10 mg Dextrose/Water (D5w) 1,000 mls @ 0 mls/hr IV .Q0M PRN PRN Reason: Hypoglycemia Insulin Human Regular (Humulin R) 0 units SC .AGGRESSIVE SLIDING PRN PRN Reason: Aggressive Correctional Scale Last Admin: 04/05/19 00:15 Dose: 3 unit Magnesium Hydroxide (Milk Of Magnesium) 30 ml PER TUBE DAILYPRN PRN PRN Reason: Constipation Last Admin: 03/29/19 09:18 Dose: 30 ml Mineral Oil/White Petrolatum (Systane Nighttime Eye Ointment) 0 gm EA EYE PRN PRN PRN Reason: Dry Eyes Nitroglycerin (Nitrostat) 0.4 mg PO Q5MIN PRN PRN Reason: Chest Pain Discontinue Previous Narcotic Pain Medications And Benzodiazepines [address] [facility] Stop: 04/18/19 11:07 Polyethylene Glycol (Miralax) [address] [facility] Last Admin: 04/04/19 20:48 Dose: 17 gm Quetiapine Fumarate (Seroquel) 12.5 mg PO HS [facility] Rosuvastatin Calcium (Crestor) [address] [facility] Last Admin: 04/04/19 20:49 Dose: 5 mg Sacubitril/Valsartan (Entresto 49 Mg-51 Mg Tablet) [address] [facility] Last Admin: 04/05/19 08:40 Dose: 1 tab Senna/Docusate Sodium (Senokot S) 1 tab [address] TUBE [address] [facility] Sodium Chloride (Flush - Normal Saline) 10 ml IVF PRN PRN PRN Reason: Saline Flush Last Admin: 03/23/19 20:40 Dose: 10 ml Spironolactone (Aldactone) 25 mg PO QAM-WM [facility] Last Admin: 04/05/19 08:33 Dose: 25 mg
--- NOTE | 2019-04-05 11:30 | PRG ---
DATE OF SERVICE: 04/05/2019 SERVICE: Pulmonary Medicine. INTERVAL HISTORY: The patient is doing really well from respiratory standpoint. Breathing comfortably. She has no complaints of chest discomfort, nausea, or vomiting. Her strength is improving day after day. Otherwise, there has been no interval change to her condition. She still has a little bit of confusion, but this seems to be clearing as well. PHYSICAL EXAMINATION: VITAL SIGNS: Afebrile, pulse 87, blood pressure 106/69, respirations 18, and saturations 94% on room air. GENERAL: The patient is awake and alert, in no apparent distress. LUNGS: Decent air entry. I do not hear much crackling or wheezing. HEART: Normal rate, regular. ABDOMEN: Soft, nontender, nondistended. Bowel sounds are positive. MUSCULOSKELETAL: No cyanosis or clubbing. There is no pitting in the bilateral lower extremities. She has skin tenting throughout. NEUROLOGIC: Grossly nonfocal. LABORATORY DATA: WBC 13.4, hemoglobin 14.1, platelets 317,000. Basic metabolic profile is completely unremarkable. Blood cultures x2 are unremarkable. Respiratory culture is negative to date. IMAGING: Echocardiogram demonstrates 30% to 35% ejection fraction. Left atrium remains dilated. Mild to moderate mitral regurgitation is noted. ASSESSMENT: 1. Acute hypoxic respiratory failure, resolved. 2. Acute on chronic systolic and diastolic heart failure, now euvolemic. 3. Critical care myopathy, improving. 4. History of asthma without current exacerbation. DISCUSSION AND PLAN: The patient is doing fine from respiratory standpoint. At this point, she is stable for transition out of the ICU to the medical unit. She has had a profound improvement in her ejection fraction. As such, on presentation, it may have been a factor of her severe sepsis. Pulmonary/Critical Care will continue to follow along for the time being. Job ID: [id number]
[2019-04-05] MEDS: Enoxaparin Sodium 40 MG/0.4 ML SYRINGE SC SCH (20:20)
[2019-04-05] MEDS: Polyethylene Glycol 3350 17 GM Packet PER TUBE SCH (20:20)
[2019-04-05] MEDS: Rosuvastatin 5 MG TAB PO SCH (20:21)
[2019-04-06] MEDS: Insulin Regular 300 UNITS/3 ML VIAL SC PRN ×3 (06:01→17:17)
[2019-04-06] MEDS: Senokot S 8.6-50 MG TAB PER TUBE SCH ×2 (07:53→20:10)
[2019-04-06] MEDS: Aspirin 81 mg Enteric Coated Tablet PO SCH (07:53)
[2019-04-06] MEDS: Spironolactone 25 MG TAB PO SCH (07:59)
[2019-04-06] MEDS: Carvedilol 25 MG TAB PO SCH ×2 (08:05→17:17)
[2019-04-06] MEDS ORDERED: Ondansetron PF 4 MG/2 ML Vial IVP PRN (08:30)
[2019-04-06] MEDS ORDERED: Ondansetron ODT 4 MG TAB PO PRN ×2 (08:31→08:32)
[2019-04-06] MEDS: Sacubitril 49 MG/Valsartan 51 MG TABLET PO SCH ×2 (08:52→20:10)
--- NOTE | 2019-04-06 12:04 | PDOC.PN ---
- Subjective Encounter Start Date: 04/06/19 Encounter Start Time: 09:30 Patient seen and examined. No new complaints. No overnight events - Objective Resuscitation Status - Order Detail: 03/19/19 10:49 Resuscitation Status Routine Resuscitation Status: FULL: Full Resuscitation MAR Reviewed: Yes Vital Signs & Weight: Vital Signs (12 hours) Temp Pulse Resp BP Pulse Ox 04/06/19 11:49 97.9 F 100 16 118/68 95 04/06/19 08:00 96 04/06/19 07:56 98.0 F 87 16 103/59 L 96 04/06/19 01:25 84 18 93 L Weight Admit Weight 228 lb 2.855 oz Weight 207 lb 6 oz Most Recent Monitor Data Heart Rate from ECG 88 NIBP 103/59 NIBP BP-Mean 73 Respiration from ECG 27 SpO2 94 I&O: 04/05/19 04/06/19 04/07/19 06:59 06:59 06:59 Intake Total 1036 495 Output Total 915 143 Balance 121 352 Result Diagrams: 04/05/19 05:48 04/05/19 05:47 Additional Labs: Accuchecks 04/06/19 04/06/19 04/05/19 11:50 06:03 19:35 POC Glucose 295 H 199 H 269 H 04/05/19 04/05/19 16:18 12:27 POC Glucose 288 H 211 H Phys Exam - Physical Examination Constitutional: NAD HEENT: PERRLA, moist MMs, sclera anicteric Neck: no JVD, supple Respiratory: no wheezing, no rales, no rhonchi Cardiovascular: RRR, no significant murmur, no rub Gastrointestinal: soft, non-tender, no distention, positive bowel sounds Musculoskeletal: no edema, pulses present Neurological: non-focal, normal sensation Lymphatic: no nodes Psychiatric: normal affect Skin: no rash, normal turgor Dx/Plan (1) Acute respiratory failure with hypoxia Code(s): J96.01 - ACUTE RESPIRATORY FAILURE WITH HYPOXIA Status: Resolved (2) Acute systolic ACC/AHA stage C congestive heart failure Code(s): I50.21 - ACUTE SYSTOLIC (CONGESTIVE) HEART FAILURE Status: Acute Comment: new onset (3) Cardiomyopathy Code(s): I42.9 - CARDIOMYOPATHY, UNSPECIFIED Status: Acute Qualifiers: Cardiomyopathy type: unspecified Qualified Code(s): I42.9 - Cardiomyopathy , unspecified Comment: new onset (4) Hyponatremia Code(s): E87.1 - HYPO-OSMOLALITY AND HYPONATREMIA Status: Resolved (5) NSTEMI (non-ST elevated myocardial infarction) Code(s): I21.4 - NON-ST ELEVATION (NSTEMI) MYOCARDIAL INFARCTION Status: Resolved Comment: Type II, AR due to demand ischemia (6) Pneumonia Code(s): J18.9 - PNEUMONIA, UNSPECIFIED ORGANISM Status: Resolved (7) Sepsis Code(s): A41.9 - SEPSIS, UNSPECIFIED ORGANISM Status: Resolved (8) CKD (chronic kidney disease), stage II Code(s): N18.2 - CHRONIC KIDNEY DISEASE, STAGE 2 (MILD) Status: Chronic (9) Chronic pain Code(s): G89.29 - OTHER CHRONIC PAIN Status: Chronic Qualifiers: Chronic pain type: other chronic pain Qualified Code(s): G89.29 - Other chronic pain (10) Diabetes type 2, controlled Code(s): E11.9 - TYPE 2 DIABETES MELLITUS WITHOUT COMPLICATIONS Status: Chronic (11) HLD (hyperlipidemia) Code(s): E78.5 - HYPERLIPIDEMIA, UNSPECIFIED Status: Chronic (12) HTN (hypertension) Code(s): I10 - ESSENTIAL (PRIMARY) HYPERTENSION Status: Chronic (13) Obesity (BMI 30.0-34.9) Code(s): E66.9 - OBESITY, UNSPECIFIED Status: Chronic - 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 * susana for nausea Review of Systems - Review of Systems ENT: negative: Ear Pain, Ear Discharge, Nose Pain, Nose Discharge, Nose Congestion, Mouth Pain, Mouth Swelling, Throat Pain, Throat Swelling, Other Respiratory: negative: Cough, Dry, Shortness of Breath, Hemoptysis, SOB with Excertion, Pleuritic Pain, Sputum, Wheezing Cardiovascular: negative: chest pain, palpitations, orthopnea, paroxysmal nocturnal dyspnea, edema, light headedness, other Gastrointestinal: Nausea. negative: Vomiting, Abdominal Pain, Diarrhea, Constipation, Melena, Hematochezia, Other Genitourinary: negative: Dysuria, Frequency, Incontinence, Hematuria, Retention , Other Musculoskeletal: negative: Neck Pain, Shoulder Pain, Arm Pain, Back Pain, Hand Pain, Leg Pain, Foot Pain, Other Skin: negative: Rash, Lesions, Gt, Bruising, Other - Medications/Allergies Allergies/Adverse Reactions: Allergies Allergy/AdvReac Type Severity Reaction Status Date / Time asa fillers Allergy Uncoded 03/19/19 11:55 Medications: Current Medications Acetaminophen (Tylenol) 650 mg PO Q4H PRN PRN Reason: Headache/Fever/Mild Pain (1-3) Last Admin: 03/23/19 09:15 Dose: 650 mg Albuterol/Ipratropium (Duoneb) 3 ml NEB [id number] [facility] Last Admin: 04/06/19 10:15 Dose: Not Given Aspirin (Ecotrin) 81 mg PO DAILY [facility] Last Admin: 04/06/19 07:53 Dose: 81 mg Bisacodyl (Dulcolax) 10 mg [place] DAILYPRN PRN PRN Reason: Constipation Last Admin: 03/28/19 08:32 Dose: 10 mg Carvedilol (Coreg) 25 mg PO BID-WM [facility] Last Admin: 04/06/19 08:05 Dose: Not Given Dextrose/Water (Dextrose 50%) 25 gm SLOW IVP PRN PRN PRN Reason: Hypoglycemia Enoxaparin Sodium (Lovenox) 40 mg SC 2100 [facility] Last Admin: 04/05/19 20:20 Dose: 40 mg Glucagon (Glucagon) 1 mg IM PRN PRN PRN Reason: Hypoglycemia Hydralazine HCl (Apresoline) 10 mg SLOW IVP Q4H PRN PRN Reason: SBP Greater Than 180 Last Admin: 03/31/19 08:10 Dose: 10 mg Dextrose/Water (D5w) 1,000 mls @ 0 mls/hr IV .Q0M PRN PRN Reason: Hypoglycemia Insulin Human Regular (Humulin R) 0 units SC .AGGRESSIVE SLIDING PRN PRN Reason: Aggressive Correctional Scale Last Admin: 04/06/19 11:59 Dose: 9 unit Magnesium Hydroxide (Milk Of Magnesium) 30 ml PER TUBE DAILYPRN PRN PRN Reason: Constipation Last Admin: 03/29/19 09:18 Dose: 30 ml Mineral Oil/White Petrolatum (Systane Nighttime Eye Ointment) 0 gm EA EYE PRN PRN PRN Reason: Dry Eyes Nitroglycerin (Nitrostat) 0.4 mg PO Q5MIN PRN PRN Reason: Chest Pain Discontinue Previous Narcotic Pain Medications And Benzodiazepines 1 each FS .ONE [facility] Stop: 04/18/19 11:07 Ondansetron HCl (Zofran Odt) 4 mg PO Q6H PRN PRN Reason: Nausea/Vomiting Last Admin: 04/06/19 08:52 Dose: 4 mg Ondansetron HCl (Zofran) 4 mg IVP Q6H PRN PRN Reason: Nausea/Vomiting Polyethylene Glycol (Miralax) 17 gm PER TUBE [facility] Last Admin: 04/05/19 20:20 Dose: 17 gm Quetiapine Fumarate (Seroquel) 12.5 mg PO [facility] Last Admin: 04/05/19 20:20 Dose: 12.5 mg Rosuvastatin Calcium (Crestor) 5 mg PO [facility] Last Admin: 04/05/19 20:21 Dose: 5 mg Sacubitril/Valsartan (Entresto 49 Mg-51 Mg Tablet) 1 tab PO BID [facility] Last Admin: 04/06/19 08:52 Dose: 1 tab Senna/Docusate Sodium (Senokot S) 1 tab PER TUBE BID [facility] Last Admin: 04/06/19 07:53 Dose: 1 tab Sodium Chloride (Flush - Normal Saline) 10 ml IVF PRN PRN PRN Reason: Saline Flush Last Admin: 03/23/19 20:40 Dose: 10 ml Spironolactone (Aldactone) 25 mg PO QAM-[facility] Last Admin: 04/06/19 07:59 Dose: 25 mg
--- NOTE | 2019-04-06 14:32 | PRG ---
DATE OF SERVICE: 04/06/2019 SERVICE: Pulmonary Medicine. INTERVAL HISTORY: The patient is doing fine from Respiratory standpoint. Breathing very comfortably. She has no complaints of chest discomfort, nausea, or vomiting. Basically, she is suggesting that she has returned to her usual state of health. Her weakness is improving. PHYSICAL EXAMINATION: VITAL SIGNS: Afebrile, pulse 100, blood pressure 118/68, respirations 16, saturation 95% on room air. GENERAL: The patient is awake and alert, in no apparent distress. LUNGS: Excellent air entry. Minimal crackles are present. No prolonged expiratory phase or wheezing is appreciated. HEART: Normal rate and regular. ABDOMEN: Soft, nontender, nondistended. Bowel sounds are positive. MUSCULOSKELETAL: No cyanosis or clubbing. No pitting in the bilateral lower extremities. NEUROLOGICAL: Nonfocal. ASSESSMENT: 1. Acute hypoxic respiratory failure, resolved. 2. Acute on chronic systolic and diastolic heart failure, returned to euvolemia. 3. Critical care myopathy, improving. 4. History of asthma without current exacerbation. DISCUSSION AND PLAN: The patient is doing outstanding from Respiratory standpoint. At this point, from purely Respiratory standpoint, she is stable for transition to home. Her delirium is clearing up beautifully. Her strength is improving day by day. She should be ready for transition out of the hospital within 24 to 48 hours, provided her strength is up for it. She will need outpatient followup for her heart. It seems to be improving after she has cleared her sepsis profile. At this point, she has no further requirements for inpatient Pulmonary or Critical Care opinion, and I will sign off. Please call with additional questions or concerns. Job ID: [id number]
[2019-04-06] MEDS: Rosuvastatin 5 MG TAB PO SCH (20:09)
[2019-04-06] MEDS: Polyethylene Glycol 3350 17 GM Packet PER TUBE SCH (20:10)
[2019-04-06] MEDS: Enoxaparin Sodium 40 MG/0.4 ML SYRINGE SC SCH (20:10)
[2019-04-07] MEDS: Insulin Regular 300 UNITS/3 ML VIAL SC PRN ×3 (05:31→17:17)
[2019-04-07] MEDS: Sacubitril 49 MG/Valsartan 51 MG TABLET PO SCH ×2 (08:18→18:52)
[2019-04-07] MEDS: Senokot S 8.6-50 MG TAB PER TUBE SCH (08:18)
[2019-04-07] MEDS: Carvedilol 25 MG TAB PO SCH (08:19)
[2019-04-07] MEDS: Aspirin 81 mg Enteric Coated Tablet PO SCH (08:19)
[2019-04-07] MEDS: Spironolactone 25 MG TAB PO SCH (08:19)
[2019-04-07 16:12] VITALS: BP 104/70; TEMP 98
[2019-04-07] MEDS ORDERED: Carvedilol 25 MG TAB PO SCH (17:00)
--- NOTE | 2019-04-08 13:10 | DIS ---
DATE OF ADMISSION: 03/19/2019 DATE OF DISCHARGE: 04/07/2019 DISPOSITION: Discharge disposition is to home. PRIMARY DISCHARGE DIAGNOSES: Acute respiratory failure with hypoxia, resolved; acute new onset congestive heart failure exacerbation with systolic dysfunction and ejection fraction of around 30%; pneumonia; sepsis; [id number]-hypvseado myocardial infarction, type 2; critical care myopathy resolving. SECONDARY DIAGNOSES: Diabetes mellitus type 2, dyslipidemia, hypertension, obesity, history of asthma. PROCEDURES DONE DURING HOSPITALIZATION: Echo with 2D Doppler done on 03/20/2019 showed EF of 15% to 20%. Overall LV function was severely depressed. Repeat echo done on 04/01/2019 showed EF of 30% to 35%. Blood cultures x2, no growth. Had a white count of 25.3 on admission with white count of 13 on the . H and H 14 and 44, platelet count 317. Blood gas on arrival showed a pH of 7.11, pCO2 74, PO2 79, bicarb of 23. BUN and creatinine of 18 and 0.6 on the . BNP 372. Troponin I peaking up to 0.94, CK-MB peaking up to 9.3. MEDICATIONS: 1. Aspirin 81 mg p.o. daily. 2. Coreg 12.5 mg p.o. twice daily. 3. DuoNebs three times daily. 4. Crestor 5 mg p.o. at bedtime. 5. Entresto 49/51 mg one tablet twice daily. 6. Spironolactone 25 mg p.o. daily. INPATIENT CONSULT: Dr. Valadez for Pulmonology, Dr. Otto for Cardiology. BRIEF COURSE DURING HOSPITALIZATION: The patient initially came to ER with complaints of shortness of breath. She was intubated on arrival due to severe respiratory acidosis with volume overload and pneumonia. The patient has had consultation with Dr. Valadez for Pulmonology with Dr. Otto for new onset CHF. She is suspected to have sepsis with pneumonia. She was on broad-spectrum antibiotics after cultures were obtained. She has had slow and gentle recovery from her respiratory failure. She was successfully extubated. The patient has ICU myopathy and was slowly progressing with respect to deconditioning. The initial echo showed EF of 15% to 20%, which later improved to 30% to 35%. The patient was optimized on medications for new onset heart failure. She likely will need outpatient stress testing or angiogram once she is improved from a current illness. She was evaluated by Dr. Otto. She likely will need to follow up with Dr. Otto as advised. Prior to discharge, she is ambulating in the hallway and is adamant about going home. She does not want any placement. She lives with her and states that her will take care of her if needed. She is eating well and mostly recovered from her ICU myopathy. Her systolic blood pressures are trending in the 100s with which she is not symptomatic. Her medications for cardiomyopathy were optimized by Dr. Otto. She needs to have close monitoring of her renal function. Please note, I have seen and examined the patient on the day of discharge. Job ID: [id number]
== END 2019-04-07 19:08 | disposition home or self-care (01) | DRG 870 ==
LOC: ERS 06:35 → CCU 09:51 → T4-B 04-05 11:16
PROVIDERS: ADMIT Internal Medicine; ATTEND Internal Medicine
PROC: 0BH17EZ Insertion of Endotracheal Airway into Trachea, Via Natural or Artificial Opening (ICD-10-PCS; principal; 2019-03-19)
PROC: 5A1955Z Respiratory Ventilation, Greater than 96 Consecutive Hours (ICD-10-PCS; 2019-03-19)
DX: A40.3 Sepsis due to Streptococcus pneumoniae (principal); J18.9 Pneumonia, unspecified organism; R65.20 Severe sepsis without septic shock; J96.01 Acute respiratory failure with hypoxia; J96.02 Acute respiratory failure with hypercapnia; I21.A1 Myocardial infarction type 2; I50.23 Acute on chronic systolic (congestive) heart failure; R57.0 Cardiogenic shock; J45.901 Unspecified asthma with (acute) exacerbation; E87.1 Hypo-osmolality and hyponatremia; E87.2 Acidosis; I13.0 Hypertensive heart and chronic kidney disease with heart failure and stage 1 through stage 4 chronic kidney disease, or unspecified chronic kidney disease; I42.9 Cardiomyopathy, unspecified; N80.9 Endometriosis, unspecified; F17.210 Nicotine dependence, cigarettes, uncomplicated; E87.5 Hyperkalemia; E11.40 Type 2 diabetes mellitus with diabetic neuropathy, unspecified; E11.22 Type 2 diabetes mellitus with diabetic chronic kidney disease; N18.2 Chronic kidney disease, stage 2 (mild); Z68.36 Body mass index [BMI] 36.0-36.9, adult; G89.4 Chronic pain syndrome; E78.5 Hyperlipidemia, unspecified; E11.65 Type 2 diabetes mellitus with hyperglycemia; E66.01 Morbid (severe) obesity due to excess calories; Z86.010 Personal history of colon polyps
CPT/HCPCS: 36415; 36416; 51703; 71045; 80048; 80053; 80162; 80202; 81003; 82553; 82805; 83605; 83735; 83880; 84100; 84484; 85007; 85025; 85027; 87040; 87070; 87205; 93005; 93306; 94002; 94003; 94640; 96365; 96366; 96367; 96368; 96375; J0360; J0456; J0692; J0696; J1160; J1650; J1815; J1940; J2060; J2543; J2704; J2920; J2930; J3010; J3370; J3490; J7050; J7611; J7620; P9047; Q0162; S0028

== ENCOUNTER 2019-04-30 07:44 | Inpatient (IN) | payer BC ==
[2019-04-30 09:29] LABS: Magnesium 1.8 mg/dL (1.6-2.6)
[2019-04-30 09:36] LABS: Critical Call Chem Troponin I RESULT DECREASING
[2019-04-30 09:54] LABS: CKMB 5.3 ng/mL (0-6.6)
[2019-04-30] MEDS ORDERED: Clopidogrel Bisulfate 75 MG TAB ONE (10:06)
[2019-04-30] MEDS ORDERED: Cepastat Lozenges 1 LOZ PO PRN (11:00)
[2019-04-30] MEDS ORDERED: Zolpidem Tartrate 5 MG TAB PO PRN (11:00)
[2019-04-30] MEDS ORDERED: Calcium Carbonate 500 MG ChewTAB PO PRN (11:00)
[2019-04-30] MEDS ORDERED: Dextrose 50% Abboject 50 ML SYRINGE SLOW IVP PRN ×2 (11:00→12:07)
[2019-04-30] MEDS ORDERED: Ondansetron PF 4 MG/2 ML Vial IVP PRN (11:00)
[2019-04-30] MEDS ORDERED: HumaLOG 300 UNITS/3 ML VIAL SC PRN ×3 (11:00→12:07)
[2019-04-30] MEDS ORDERED: Loratadine 10 MG TAB PO PRN (11:00)
[2019-04-30] MEDS ORDERED: Sodium Chloride 0.65% Nasal 44 ML BOT EA NARE PRN (11:00)
[2019-04-30] MEDS ORDERED: Acetaminophen 325 MG TAB PO PRN (11:00)
[2019-04-30] MEDS ORDERED: Bisacodyl 10 MG SUPP PR PRN (11:00)
[2019-04-30] MEDS ORDERED: hydrALAZINE 20 MG/ML VIAL SLOW IVP PRN (11:00)
[2019-04-30] MEDS ORDERED: Senokot S 8.6-50 MG TAB PO PRN (11:00)
[2019-04-30] MEDS ORDERED: Nitroglycerin 0.4 MG TAB (25 Tab Bottle) SL PRN (11:00)
[2019-04-30] MEDS ORDERED: Diabetic Tussin 200 MG/10 ML UDCUP PO PRN (11:00)
[2019-04-30] MEDS ORDERED: Loperamide HCl 2 MG CAP PO PRN (11:00)
[2019-04-30] MEDS ORDERED: Dextrose 5% in Water 1,000 ML IV PRN ×2 (11:00→12:07)
[2019-04-30] MEDS ORDERED: HYDROcodone/Acetaminophen 5/325 mg Tablet PO PRN (11:00)
[2019-04-30] MEDS ORDERED: Ondansetron ODT 4 MG TAB PO PRN (11:00)
[2019-04-30] MEDS ORDERED: Enoxaparin Sodium 100 MG/ML SYRINGE SC SCH (12:00)
[2019-04-30 12:51] LABS: Troponin I 0.373 ng/mL (< 0.028)
--- NOTE | 2019-04-30 12:53 | HP ---
PRIMARY CARE PHYSICIAN: Aditya Irving MD REASON FOR ADMISSION: Transferred from [facility] for non-ST elevation UT. HISTORY OF PRESENT ILLNESS: A 53-year-old female, who has underlying history of cardiomyopathy, who presented to emergency room at [facility] with complaint of dizziness and some weird feeling. The patient describes that she was experiencing warm feeling on her left side of body. She did not have any chest pain. She felt mild shortness of breath along with the dizziness. She did not have any palpitation, episode lasted for about few minutes, and every 5 minutes, the patient was getting recurrent similar feeling and that is why the patient requested her to take to emergency room. At [facility], the patient had routine blood test, which was unremarkable. Electrocardiogram showed sinus tachycardia and nonspecific ST-T changes. At [facility], the patient had CT angiography, which was negative for pulmonary embolism. Chest x-ray was unremarkable. CT angio reported suspected finding of pulmonary edema versus atypical infiltration. The patient does not have any fever, chills, or cough. She does not have any orthopnea, PND, or leg swelling. The patient was recently admitted in our hospital for heart failure, respiratory failure, CHF. At [facility], the patient was getting increased frequency of warm feeling on her side of the body every 1 or 2 minutes. She was transferred to our hospital for further evaluation, and her second troponin came back abnormal, 0.345. The patient has received Lovenox 1 mg/kg in the emergency room, and we are admitting this patient for non-ST elevation UT. PAST MEDICAL HISTORY: Systolic and diastolic heart failure with EF 35% to 40%, mild intermittent asthma, hypertension, endometriosis, colon polyps, Eustachian tube dysfunction, cholesteatoma, diabetes type 2, seasonal allergy. PAST SURGICAL HISTORY: Hysterectomy, tympanostomy tube placement in right ear in 2011, knee surgery. ALLERGIES: NONE. REVIEW OF SYSTEMS: CONSTITUTIONAL: Negative for weight loss or gain, ability to conduct usual activities. SKIN: Negative for rash, itching. EYES: Negative for double vision, pain. ENT/MOUTH: Negative for nose bleeding, neck stiffness, pain, tenderness. CARDIOVASCULAR: Negative for palpitations, dyspnea on exertion, orthopnea. RESPIRATORY: Negative for shortness of breath, wheezing, cough, hemoptysis, fever or night sweats. GASTROINTESTINAL: Negative for poor appetite, abdominal pain, heartburn, nausea, vomiting, constipation, or diarrhea. GENITOURINARY: Negative for urgency, frequency, dysuria, nocturia. MUSCULOSKELETAL: Negative for pain, swelling. NEUROLOGIC/PSYCHIATRIC: Negative for anxiety, depression. ALLERGY/IMMUNOLOGIC: Negative for skin rash, bleeding tendency. Please see my HPI for pertinent positive and negative. All other review of systems reviewed and negative, except as mentioned in HPI. SOCIAL HISTORY: The patient is smoking and she is trying to cut down to 15 cigarettes per day. She currently denies any alcohol abuse. She denies any other illicit drug abuse. She is and lives at home with her . FAMILY HISTORY: No strong family history of premature coronary artery disease, stroke, or cancer. Additional information; the patient reports that she was recently kept on Entresto, but her insurance declined her medication and she visited cardiology on Sunday. Since then, the patient was taking Entresto from samples provided by Cardiology. CURRENT HOME MEDICATIONS: 1. Aspirin 81 mg p.o. daily. 2. Coreg 12.5 mg b.i.d. 3. DuoNeb t.i.d. p.r.n. 4. Crestor 5 mg p.o. at bedtime. 5. Entresto 1 tablet twice daily. 6. Aldactone 25 mg p.o. daily. EMERGENCY ROOM COURSE: The patient has received Lovenox 1 mg/kg. PHYSICAL EXAMINATION: VITAL SIGNS: Currently, blood pressure 160/80, pulse 100, respiratory rate 18, temperature 98.7, saturation 98% on room air, weight 95.6 kg. GENERAL: The patient is currently alert, awake, no obvious acute distress. HEENT: Head; normocephalic, atraumatic. Eyes; pupils round and reactive to light. Extraocular muscles intact. ENT; oropharynx within normal limits. Moist mucous membranes. No oral lesion. No pharyngeal erythema. No exudate. NECK: Supple. No JVD. No thyromegaly. No carotid bruit. No jugular venous distention. LUNGS: Clear to auscultation without any obvious rhonchi or rales. CARDIAC: S1 and S2, regular. No murmur. No gallop. ABDOMEN: Soft. Bowel sounds present. Nontender. Nondistended. No organomegaly. No mass. No suprapubic tenderness. BACK: Unremarkable. No CVA tenderness. EXTREMITIES: Upper extremities, passive movement of all joints are normal. Lower extremity, no edema. No calf tenderness. SKIN: No skin rash. HEMATOLOGICAL: No lymphadenopathy. NEUROLOGIC: Nonfocal examination. SIGNIFICANT LABORATORY DATA: CBC; WBC 13.7, hemoglobin 14.0, platelets 395. D-dimer 0.55. Sodium 134, potassium 4.5, chloride 101, carbon dioxide 21, anion gap 17, BUN 8, creatinine 0.70, glucose 243, calcium 9.1. LFT; AST 12, ALT 12, alkaline phosphatase 79, albumin 3.8. Troponin 0.010 and then 0.345. BNP 49.4, magnesium 1.8, . IMAGING STUDIES: CT angiography reported as no PE. Ground-glass opacity throughout both lungs. Mild prominence of hilar lymph node. Chest x-ray unremarkable. EKG showing nonspecific ST-T changes. ASSESSMENT/PLAN: 1. Non-ST elevation myocardial infarction. 2. Chronic systolic and diastolic heart failure with ejection fraction of 35% to 40%. ACC stage C. 3. Chronic kidney disease, stage 2. 4. Hypertension. 5. Dyslipidemia. 6. Obesity. 7. Abnormal CT angiography finding. 8. Diabetes type 2. PLAN: 1. Lovenox 1 mg/kg subcu given. Cardiology will be consulted. Hyperglycemia, diabetes protocol ordered. Her home medication reconciled. We will increase her Crestor to 20 mg p.o. at bedtime because of non-ST elevation UT. We will continue aspirin 81 mg p.o. daily, Coreg 12.5 mg p.o. twice daily, Entresto one tablet twice daily, Aldactone 25 mg p.o. daily. 2. Smoking cessation counseling given. Healthy lifestyle measure discussed with the patient. Diabetic diet will be given. 3. Code status, the patient is full code. Further decision based on Cardiology recommendation. This patient will remain as a full admission because we are expecting while in the hospital more than 2 midnights. 4. Gastrointestinal prophylaxis, Pepcid 20 mg p.o. b.i.d. 5. DVT prophylaxis, the patient is already on Lovenox 1 mg/kg subcu twice daily. Job ID: [id number]
[2019-04-30 15:16] VITALS: BMI 33.5
[2019-04-30] MEDS: Carvedilol 6.25 MG TAB PO SCH (16:40)
--- NOTE | 2019-04-30 18:36 | CON ---
DATE OF CONSULTATION: REASON FOR CONSULTATION: Elevated troponin. HISTORY OF PRESENT ILLNESS: Ms. Edmondson is a 53-year-old woman, who is a previous patient of Dr. Marvin Otto. She recently set up an appointment with Dr. Gary Berry in the office, but has not officially seen him in the practice. She no longer wants to be seen by Dr. Otto due to disagreement. Ms. Edmondson recently presented with a hot flushed feeling that began in the back of her neck and was noted all the way down to her toes. This recurred every 20 to 30 minutes. She presented to the emergency room, where she had a full workup. She had a troponin level drawn and was negative and has been subsequently admitted. She does have risk factors for underlying coronary artery disease including hypertension, diabetes, hyperlipidemia, and tobacco abuse. Her CK-MB has been normal. She also had a prolonged hospitalization for pneumonia. She has a history of cardiomyopathy with LVEF of 35% to 40%. PAST MEDICAL HISTORY: Hysterectomy and knee surgery. ALLERGIES: NONE. REVIEW OF SYMPTOMS: Ten-point review of systems is reviewed and as above, otherwise negative. HOME MEDICATIONS: Include aspirin, Coreg, Crestor, Entresto, and aldactone. PHYSICAL EXAMINATION: GENERAL: Patient is a pleasant 53-year-old woman, who is in no acute distress. The patient appears their stated age. VITAL SIGNS: Blood pressure 115/70, pulse 105, and temperature 97.5. NEUROLOGIC: The patient is alert and oriented x3 with no focal neurologic deficits. HEENT: Sclerae without icterus. Mouth has moist mucous membranes with normal pallor. NECK: No JVD. Carotid upstroke brisk. No bruits bilaterally. LUNGS: Clear to auscultation with unlabored respirations. BACK: No scoliosis or kyphosis. CARDIAC: Regular rate and rhythm with normal S1 and S2. No S3 or S4 noted. No significant rubs, murmurs, thrills, or gallops noted throughout the precordium. PMI is not displaced. There is no parasternal heave. ABDOMEN: Soft, nontender, nondistended. No peritoneal signs present. No hepatosplenomegaly. No abnormal striae. EXTREMITIES: 2+ femoral and 2+ dorsalis pedis pulses. No cyanosis, clubbing, or edema. SKIN: No gross abnormalities. PERTINENT LABORATORY DATA: As above. Creatinine 0.7. EKG shows normal sinus rhythm with ST-T wave changes suggesting LVH. IMPRESSION: 1. Flushed feeling. 2. Elevated troponin. RECOMMENDATION: Delvis has no current symptoms suggesting angina. She does have significant risk factors for underlying coronary artery disease. If she had an event based on her CK-MB or event occurred over the last 14 days based on her troponin. Her CK-MB has been negative twice. A third set is pending. Based on her third set if elevated, we would recommend coronary angiography; if felt to be within normal limits, we would recommend a noninvasive stress study. Further recommendations pending the above. Job ID: [id number]
[2019-04-30] MEDS ORDERED: Rosuvastatin 5 MG TAB PO SCH (21:00)
[2019-04-30] MEDS: Rosuvastatin 20 MG TAB PO SCH (21:40)
[2019-04-30] MEDS: Sacubitril 49 MG/Valsartan 51 MG TABLET PO SCH (21:40)
[2019-04-30] MEDS: Famotidine 20 MG TAB PO SCH (21:40)
[2019-04-30] MEDS: Enoxaparin Sodium 60 MG/0.6 ML SYRINGE SC SCH (21:40)
[2019-04-30 23:13] LABS: Bilirubin Negative (Negative); Blood, Urine Negative (Negative); Clarity Clear (Clear); Glucose, Urine (Dipstick) Normal (Negative); Leukocyte Negative Leu/uL (Negative); Nitrite Negative (Negative); Protein, Urine (Dipstick) Negative (Neg-Trace); RBC/HPF 0-3 HPF (0-3); Squamous Epithelial 0-3 HPF (0-3); Urobilinogen Normal mg/dL (Less than 2); WBC/HPF 0-3 HPF (0-3)
[2019-04-30 23:22] LABS: Bacteria/HPF None Seen HPF (None Seen)
[2019-05-01 04:51] LABS: #Eosinphils 0.2 thou/uL (0.0-0.7); #Lymphocytes 3.2 thou/uL (1.20-3.40); #Monocytes 0.6 thou/uL (0.11-0.59); #Neutrophils 7.8 thou/uL (1.40-6.50); %Basophils 0.3 % (0.0-1.0); %Monocytes 5.2 % (0.0-10.0); %Neutrophils 65.5 % (42.0-75.0); Mean Corpuscular HGB CONC 32.5 g/dL (32.0-36.0); Mean Corpuscular Hemoglobin 29.4 pg (27.0-31.0); Mean Corpuscular Volume 90.4 fL (78.0-98.0); Mean Platelet Volume 7.4 fL (7.4-10.4); Platelet Count 335 thou/uL (130-400); RBC Distribution Width 14.8 % (11.5-14.5); Red Blood Cell (RBC) Count 4.77 mill/uL (4.20-5.40); White Blood Cell (WBC) Count 11.8 thou/uL (4.8-10.8)
[2019-05-01 05:14] LABS: Anion Gap 14 mmol/L (10-20); BUN (Urea Nitrogen) 6 mg/dL (9.8-20.1); Calc. Creatinine Clearance 148 mL/min (70-130); Calcium 9.2 mg/dL (7.8-10.44); Carbon Dioxide 21 mmol/L (22-29); Chloride 104 mmol/L (98-107); Estimated GFR-MDRD Greater than 90; Glucose 148 mg/dL (70-105); Potassium 3.9 mmol/L (3.5-5.1); Sodium 135 mmol/L (136-145)
[2019-05-01] MEDS ORDERED: Sodium Chloride 0.9% 10 ML ONE ×2 (08:51→10:22)
[2019-05-01] MEDS: Spironolactone 25 MG TAB PO SCH (09:55)
[2019-05-01] MEDS: Famotidine 20 MG TAB PO SCH ×2 (09:55→21:26)
[2019-05-01] MEDS: Doxycycline 100 MG CAP PO SCH ×2 (09:56→21:25)
[2019-05-01] MEDS: Sacubitril 49 MG/Valsartan 51 MG TABLET PO SCH ×2 (09:56→21:26)
[2019-05-01] MEDS: Aspirin 81 mg Enteric Coated Tablet PO SCH (09:56)
--- NOTE | 2019-05-01 13:11 | PDOC.CTH ---
Cardiology Progress Note - Subjective No recurrence on symptoms. No chest pain, tightness, pressure, SOB. - Objective Vital Signs Temp Pulse Resp BP BP Pulse Ox 05/01/19 08:00 97.5 F L 102 H 18 108/68 93 L 05/01/19 03:09 98.0 F 104 H 17 121/74 94 L Weight 203 lb 3.2 oz 04/30/19 05/01/19 05/02/19 06:59 06:59 06:59 Intake Total 720 Output Total 950 Balance -230 - Physical Examination General/Neuro: alert & oriented x3, NAD Neck: no JVD present Lungs: CTA, unlabored respirations Heart: RRR Abdomen: NT/ND Extremities: other: (no edema) - Telemetry Telemetry Rhythm: NSR - Labs Result Diagrams: 05/01/19 04:39 05/01/19 04:39 Troponin/CKMB CK-MB (CK-2) 4.0 ng/mL (0-6.6) 04/30/19 18:25 Troponin I 0.373 ng/mL (< 0.028) H* 04/30/19 12:07 - Assessment/Plan 1. Chest pain, atypical for angina 2. Dilated CM last EF before discharge at 35-40% 3. Recent pneumonia. PLAN: - Will risk stratify with Nuclear stress test, if normal may d/c home from cardiac perspective. - Already has an appointment next week to see me.
[2019-05-01] MEDS ORDERED: Regadenoson 0.4 MG/5 ML SYRINGE ONE (15:01)
[2019-05-01] MEDS: Carvedilol 6.25 MG TAB PO SCH ×2 (16:37→18:03)
[2019-05-01] MEDS: Enoxaparin Sodium 60 MG/0.6 ML SYRINGE SC SCH ×2 (16:38→21:26)
[2019-05-01] MEDS: HumaLOG 300 UNITS/3 ML VIAL SC PRN (18:01)
[2019-05-01] MEDS ORDERED: Non-Formulary Item 1 EACH (Insulin Detemir [Levemir] 25 UNIT) SQ SCH (18:13)
[2019-05-01] MEDS ORDERED: Insulin Glargine 25 UNITS in Pre-Filled Syringe 1 EACH SC SCH (18:45)
[2019-05-01] MEDS: Rosuvastatin 20 MG TAB PO SCH (21:26)
--- NOTE | 2019-05-02 06:31 | PDOC.HOSPP ---
- Subjective Encounter Date: 05/01/19 Encounter Time: 11:20 Subjective: pt up in chair upset about being in the hospital - Objective Vital Signs & Weight: Vital Signs (12 hours) Temp Pulse Resp BP BP Pulse Ox 05/02/19 06:17 104/58 L 05/02/19 04:00 97.6 F 103 H 16 91/55 L 93 L 05/02/19 01:04 93 20 05/01/19 19:35 97.6 F 100 18 111/61 100 Weight Weight 204 lb 8 oz I&O: 04/30/19 05/01/19 05/02/19 06:59 06:59 06:59 Intake Total 720 480 Output Total 950 Balance -230 480 Result Diagrams: 05/01/19 04:39 05/01/19 04:39 Additional Labs: Accuchecks 05/02/19 05/01/19 05/01/19 05:58 21:23 17:24 POC Glucose 156 H 175 H 267 H 05/01/19 10:48 POC Glucose 190 H ROS - Review of Systems Respiratory: denies: cough, dry, shortness of breath, hemoptysis, SOB with excertion, pleuritic pain, sputum, wheezing, other Cardiovascular: denies: chest pain, palpitations, orthopnea, paroxysmal noc. dyspnea, edema, light headedness, other - Medication Medications: Active Medications Generic Name Dose Route Start Last Admin Trade Name Freq PRN Reason Stop Dose Admin Acetaminophen 650 mg 04/30/19 11:00 04/30/19 16:52 Tylenol PO 650 mg Q4H PRN Administration Headache/Fever/Mild Pain (1-3) Aspirin 81 mg 05/01/19 09:00 05/01/19 09:56 Ecotrin PO 81 mg DAILY SHERRY Administration Carvedilol 12.5 mg 04/30/19 17:00 05/01/19 18:03 Coreg PO 12.5 mg BID-WM SHERRY Administration Doxycycline Hyclate 100 mg 05/01/19 09:00 05/01/19 21:25 Vibramycin PO 100 mg BID SHERRY Administration Enoxaparin Sodium 0 mg 04/30/19 21:00 05/01/19 21:26 Lovenox SC 60 mg 0900,2100 SHERRY Administration Famotidine 20 mg 04/30/19 21:00 08/15/19 21:26 Pepcid PO 20 mg BID SHERRY Administration Insulin Human Lispro 0 units 04/30/19 12:07 05/01/19 18:01 Humalog SC 6 unit .MODERATE SLIDING SC PRN Administration Moderate Correctional Scale Ondansetron HCl 4 mg 04/30/19 11:00 05/01/19 10:02 Zofran IVP 4 mg Q6H PRN Administration Nausea/Vomiting Rosuvastatin Calcium 20 mg 04/30/19 21:00 05/01/19 21:26 Crestor PO 20 mg HS SHERRY Administration Sacubitril/Valsartan 1 tab 04/30/19 21:00 05/01/19 21:26 Entresto 49 Mg-51 Mg Tablet PO 1 tab BID SHERRY Administration Spironolactone 25 mg 05/01/19 08:00 05/01/19 09:55 Aldactone PO 25 mg QAM-WM SHERRY Administration - Exam Neck: negative: supple, symmetric, no JVD, no thyromegaly, no lymphadenopathy, no carotid bruit, JVD Heart: negative: RRR, no murmur, no gallops, no rubs, normal peripheral pulses, irregular, diminshed peripheral pulses, murmur present, II/IV, III/IV Respiratory: negative: CTAB, no wheezes, no rales, no ronchi, normal chest expansion, no tachypnea, normal percussion, rales, rhonchi, tachypneic, wheezes Hosp A/P (1) NSTEMI (non-ST elevated myocardial infarction) Code(s): I21.4 - NON-ST ELEVATION (NSTEMI) MYOCARDIAL INFARCTION Status: Resolved (2) Diabetes type 2, controlled Code(s): E11.9 - TYPE 2 DIABETES MELLITUS WITHOUT COMPLICATIONS Status: Chronic (3) HLD (hyperlipidemia) Code(s): E78.5 - HYPERLIPIDEMIA, UNSPECIFIED Status: Chronic (4) HTN (hypertension) Code(s): I10 - ESSENTIAL (PRIMARY) HYPERTENSION Status: Chronic (5) Obesity (BMI 30.0-34.9) Code(s): E66.9 - OBESITY, UNSPECIFIED Status: Chronic (6) Pneumonia Code(s): J18.9 - PNEUMONIA, UNSPECIFIED ORGANISM Status: Resolved - Plan pt to undergo stress test today. I have educated her about smoking cessation. i will start her on doxy given her ct findings. She is very stressed about her stress test results. she was offered a nicotine patch but she refused.
[2019-05-02] MEDS: Doxycycline 100 MG CAP PO SCH ×2 (10:28→21:01)
[2019-05-02] MEDS: Aspirin 81 mg Enteric Coated Tablet PO SCH (10:28)
[2019-05-02] MEDS: Spironolactone 25 MG TAB PO SCH (10:29)
[2019-05-02] MEDS: Famotidine 20 MG TAB PO SCH ×2 (10:29→21:02)
[2019-05-02] MEDS: Insulin Glargine 25 UNITS in Pre-Filled Syringe 1 EACH SC SCH (10:29)
[2019-05-02] MEDS: Carvedilol 6.25 MG TAB PO SCH ×2 (10:29→17:06)
[2019-05-02] MEDS: Sacubitril 49 MG/Valsartan 51 MG TABLET PO SCH ×2 (10:30→21:01)
[2019-05-02] MEDS: Enoxaparin Sodium 60 MG/0.6 ML SYRINGE SC SCH ×2 (10:30→21:02)
[2019-05-02] MEDS: HumaLOG 300 UNITS/3 ML VIAL SC PRN (11:39)
--- NOTE | 2019-05-02 12:31 | NM ---
MYOCARDIAL PERFUSION SCAN WITH SPECT IMAGING: HISTORY: Chest pain. FINDINGS: Examination is performed using 30 mCi 99m Technetium sestamibi on the stress and 29.6 mCi on the rest ing images. This shows an area of ischemic change involving the inferolateral wall of the left ventr icle. WALL MOTION: There is marked global hypokinesis. LEFT VENTRICULAR EJECTION FRACTION: The calculated left ventricular ejection fraction was 30%. IMPRESSION: 1. Ischemic change involving the inferolateral wall of the left ventricle. 2. Markedly reduced left ventricular ejection fraction of 30% with global hypokinesis. POS: OFF
--- NOTE | 2019-05-02 12:54 | PDOC.CTH ---
Cardiology Progress Note - Subjective She denies any chest pain, tightness, pressure, SOB. She feels back to her baseline. Her stress test showed EF remains reduced at 30% and has inferior ischemia. - Objective Vital Signs Temp Pulse Resp BP BP BP Pulse Ox 05/02/19 11:29 97.9 F 106 H 18 100/59 L 95 05/02/19 10:29 120/80 05/02/19 07:39 98.3 F 102 H 17 131/72 96 05/02/19 06:17 104/58 L 05/02/19 04:00 97.6 F 103 H 16 91/55 L 93 L 05/02/19 01:04 93 20 Weight 204 lb 8 oz 05/01/19 05/02/19 05/03/19 06:59 06:59 06:59 Intake Total 720 480 Output Total 950 Balance -230 480 - Physical Examination General/Neuro: alert & oriented x3, NAD Neck: no JVD present Lungs: CTA, unlabored respirations Heart: RRR Abdomen: NT/ND Extremities: other: (no edema) - Telemetry Telemetry Rhythm: nsr - Labs Result Diagrams: 05/01/19 04:39 05/01/19 04:39 Troponin/CKMB CK-MB (CK-2) 4.0 ng/mL (0-6.6) 04/30/19 18:25 Troponin I 0.373 ng/mL (< 0.028) H* 04/30/19 12:07 - Assessment/Plan 1. Chest pain, atypical for angina 2. Dilated CM last EF now at 30%. 3. Recent pneumonia. 4. Tobacco use. PLAN: - EF 30% on stress today. - She has inferior ischemic on MPI. We spoke about doing a LHC and currently she is not interested, she is very aggravated about being in the hospital and she just wants to go home. Currently she is not having any symptoms suggestive of angina and she is refusing LHC during this admission. She already has an appointment to see me in [place] on Sunday of next week (today is sunday) and she would like to have medical therapy today and may consider LHC as an outpatient. Will plan on discharge on current regimen. Will Add plavix for her NSTEMI. - She has been advised to return to the hospital if any other symptoms should arise. She understands and verbalizes understanding of this. I offered a lifevest and she agrees. Will place order. She may be discharge once lifevest in place.
--- NOTE | 2019-05-02 13:41 | PDOC.HOSPP ---
- Subjective Encounter Date: 05/02/19 Encounter Time: 13:39 Subjective: Patient seen and examined. No new complaints. No overnight events - Objective Vital Signs & Weight: Vital Signs (12 hours) Temp Pulse Resp BP BP BP Pulse Ox 05/02/19 11:29 97.9 F 106 H 18 100/59 L 95 05/02/19 10:29 120/80 05/02/19 07:39 98.3 F 102 H 17 131/72 96 05/02/19 06:17 104/58 L 05/02/19 04:00 97.6 F 103 H 16 91/55 L 93 L Weight Weight 204 lb 8 oz I&O: 05/01/19 05/02/19 05/03/19 06:59 06:59 06:59 Intake Total 720 480 Output Total 950 Balance -230 480 Result Diagrams: 05/01/19 04:39 05/01/19 04:39 Additional Labs: Accuchecks 05/02/19 05/02/19 05/01/19 11:31 05:58 21:23 POC Glucose 303 H 156 H 175 H 05/01/19 17:24 POC Glucose 267 H EKG Reviewed by me: Yes ROS - Review of Systems Eyes: denies: pain, vision change, conjunctivae inflammation, eyelid inflammation, redness, other ENT: denies: ear pain, ear discharge, nose pain, nose discharge, nose congestion , mouth pain, mouth swelling, throat pain, throat swelling, other Respiratory: denies: cough, dry, shortness of breath, hemoptysis, SOB with excertion, pleuritic pain, sputum, wheezing, other Cardiovascular: denies: chest pain, palpitations, orthopnea, paroxysmal noc. dyspnea, edema, light headedness, other Gastrointestinal: denies: nausea, vomitting, abdominal pain, diarrhea, constipation, melena, hematochezia, other Genitourinary: denies: dysuria, frequency, incontinence, hematuria, retention, other Musculoskeletal: denies: neck pain, shoulder pain, arm pain, back pain, hand pain, leg pain, foot pain, other Skin: denies: rash, lesions, ed, bruising, other - Medication Medications: Active Medications Generic Name Dose Route Start Last Admin Trade Name Freq PRN Reason Stop Dose Admin Acetaminophen 650 mg 04/30/19 11:00 04/30/19 16:52 Tylenol PO 650 mg Q4H PRN Administration Headache/Fever/Mild Pain (1-3) Aspirin 81 mg 05/01/19 09:00 05/02/19 10:28 Ecotrin PO 81 mg DAILY SHERRY Administration Carvedilol 12.5 mg 04/30/19 17:00 05/02/19 10:29 Coreg PO 12.5 mg BID-WM SHERRY Administration Doxycycline Hyclate 100 mg 05/01/19 09:00 05/02/19 10:28 Vibramycin PO 100 mg BID SHERRY Administration Enoxaparin Sodium 0 mg 04/30/19 21:00 05/02/19 10:30 Lovenox SC 60 mg 0900,2100 SHERRY Administration Famotidine 20 mg 04/30/19 21:00 05/02/19 10:29 Pepcid PO 20 mg BID SHERRY Administration Insulin Glargine 25 units/ 0.25 mls @ 0 mls/hr 05/02/19 09:00 05/02/19 10:29 Miscellaneous Medication SC 0.25 mls QAM SHERRY Administration Insulin Human Lispro 0 units 04/30/19 12:07 05/02/19 11:39 Humalog SC 8 unit .MODERATE SLIDING SC PRN Administration Moderate Correctional Scale Ondansetron HCl 4 mg 04/30/19 11:00 05/01/19 10:02 Zofran IVP 4 mg Q6H PRN Administration Nausea/Vomiting Rosuvastatin Calcium 20 mg 04/30/19 21:00 05/01/19 21:26 Crestor PO 20 mg HS SHERRY Administration Sacubitril/Valsartan 1 tab 04/30/19 21:00 05/02/19 10:30 Entresto 49 Mg-51 Mg Tablet PO 1 tab BID SHERRY Administration Spironolactone 25 mg 05/01/19 08:00 05/02/19 10:29 Aldactone PO 25 mg QAM-WM [facility] Administration - Exam NAD, awake alert Eye: PERRL, anicteric sclera ENT: normocephalic atraumatic, no oropharyngeal lesions Neck: supple, symmetric, no JVD Heart: RRR, no murmur, no gallops, no rubs Respiratory: CTAB, no wheezes, no rales Gastrointestinal: soft, non-tender, non-distended, normal bowel sounds Extremities: no cyanosis, no clubbing, no edema Skin: normal turgor, no lesions Neurological: CN's grossly intact, normal sensation to touch, no focal deficits Musculoskeletal: normal tone, normal strength Psychiatric: normal affect, normal behavior Hosp A/P (1) Chest pain Code(s): R07.9 - CHEST PAIN, UNSPECIFIED Status: Acute (2) Elevated troponin Code(s): R74.8 - ABNORMAL LEVELS OF OTHER SERUM ENZYMES Status: Acute (3) CKD (chronic kidney disease), stage II Code(s): N18.2 - CHRONIC KIDNEY DISEASE, STAGE 2 (MILD) Status: Chronic (4) Cardiomyopathy Code(s): I42.9 - CARDIOMYOPATHY, UNSPECIFIED Status: Chronic Qualifiers: Cardiomyopathy type: unspecified Qualified Code(s): I42.9 - Cardiomyopathy , unspecified (5) Chronic pain Code(s): G89.29 - OTHER CHRONIC PAIN Status: Chronic Qualifiers: Chronic pain type: other chronic pain Qualified Code(s): G89.29 - Other chronic pain (6) Chronic systolic heart failure, ACC/AHA stage C Code(s): I50.22 - CHRONIC SYSTOLIC (CONGESTIVE) HEART FAILURE Status: Chronic (7) Diabetes type 2, controlled Code(s): E11.9 - TYPE 2 DIABETES MELLITUS WITHOUT COMPLICATIONS Status: Chronic (8) HLD (hyperlipidemia) Code(s): E78.5 - HYPERLIPIDEMIA, UNSPECIFIED Status: Chronic (9) HTN (hypertension) Code(s): I10 - ESSENTIAL (PRIMARY) HYPERTENSION Status: Chronic (10) Obesity (BMI 30.0-34.9) Code(s): E66.9 - OBESITY, UNSPECIFIED Status: Chronic - Plan old records reviewed/req pt refuses for cardiac cath for abnormal stress test life vest arrangement and then dc per pt request
--- NOTE | 2019-05-02 14:04 | DIS ---
DATE OF ADMISSION: 04/30/2019 DATE OF DISCHARGE: 05/02/2019 PRIMARY CARE PHYSICIAN: Dr. Aditya Irving. DISCHARGE DISPOSITION: Home. PRIMARY DISCHARGE DIAGNOSES: 1. Elevated troponin, likely due to type 2 myocardial infarction. 2. Near syncope/palpitation, resolved. 3. Abnormal stress test. SECONDARY DISCHARGE DIAGNOSES: 1. Cardiomyopathy. 2. Chronic pain disorder. 3. Chronic systolic heart failure. 4. Chronic kidney disease stage 2. 5. Diabetes type 2. 6. Hypertension. 7. Dyslipidemia. 8. Obesity. PRIMARY PROCEDURE/OPERATION: None. RADIOLOGICAL INVESTIGATION: Chest x-ray was unremarkable. Stress test showed ischemic changes in inferolateral wall. EF reduced to 30%. SIGNIFICANT LABORATORY DATA: WBC 11.8, hemoglobin 14.0, and platelet 335. Sodium 135, creatinine 0.65. Troponin 0.373. Urinalysis normal. DISCHARGE MEDICATIONS: 1. Levemir insulin 25 units subcu daily. 2. Aspirin 81 mg daily. 3. Coreg 12.5 mg b.i.d. 4. Doxycycline 100 mg b.i.d. 5. Pepcid 20 mg b.i.d. 6. DuoNeb q.8 hourly p.r.n. 7. Crestor 20 mg p.o. at bedtime. 8. Entresto 1 tablet twice daily. 9. Aldactone 25 mg p.o. daily. CONTRAINDICATIONS: None. CODE STATUS: Full code. 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 TEST RESULTS PENDING ON DISCHARGE: None. ALLERGIES: NO KNOWN DRUG ALLERGIES. DISCHARGE PLAN: Posthospital, the patient will follow up with primary care physician. The patient has appointment with Dr. Berry next week. HOSPITAL COURSE: A 53-year-old female who was admitted by me. Please see my HPI for further details. The patient was admitted for recurrent episode of warm feeling on her left side of chest as well as the left side of body. She was also feeling dizziness and lightheadedness without any palpitation. She did not have any abnormal EKG changes initially, but subsequently, repeat EKG showed some ST-T changes in lateral leads. We kept in hospital, full admission. The patient had elevated troponin. Cardiology was consulted and Cardiology did a stress test for risk stratification. Her stress test is abnormal with reversible ischemia. Cardiology recommended to do cardiac cath, but the patient is not interested in going for cardiac cath while in the hospital rather she wanted to go home. She is making her own decision. Dr. Berry also wants her to have LifeVest before discharge and once LifeVest is arranged, then the patient will be discharged home per her request. Please see my progress note from today for further detail. Job ID: [id number]
[2019-05-02 15:59] LABS: Troponin I 0.084 ng/mL (< 0.028)
[2019-05-02] MEDS: Rosuvastatin 20 MG TAB PO SCH (21:01)
[2019-05-03] MEDS: Sacubitril 49 MG/Valsartan 51 MG TABLET PO SCH ×2 (08:44→20:26)
[2019-05-03] MEDS: Doxycycline 100 MG CAP PO SCH ×2 (08:44→20:26)
[2019-05-03] MEDS: Spironolactone 25 MG TAB PO SCH (08:44)
[2019-05-03] MEDS: Famotidine 20 MG TAB PO SCH ×2 (08:44→20:26)
[2019-05-03] MEDS: Clopidogrel Bisulfate 75 MG TAB PO SCH (08:44)
[2019-05-03] MEDS: Aspirin 81 mg Enteric Coated Tablet PO SCH (08:44)
[2019-05-03] MEDS: Carvedilol 6.25 MG TAB PO SCH ×2 (08:44→16:27)
[2019-05-03] MEDS: Enoxaparin Sodium 60 MG/0.6 ML SYRINGE SC SCH ×2 (08:44→20:26)
[2019-05-03] MEDS: Insulin Glargine 25 UNITS in Pre-Filled Syringe 1 EACH SC SCH (08:45)
--- NOTE | 2019-05-03 11:20 | PDOC.HOSPP ---
- Subjective Encounter Date: 05/03/19 Encounter Time: 07:00 Subjective: Patient seen and examined. No new complaints. No overnight events - Objective Vital Signs & Weight: Vital Signs (12 hours) Temp Pulse Resp BP BP Pulse Ox 05/03/19 07:53 97.6 F 99 18 137/60 96 05/03/19 03:10 98.1 F 99 18 97/56 L 92 L Weight Weight 203 lb 4.8 oz I&O: 05/02/19 05/03/19 05/04/19 06:59 06:59 06:59 Intake Total 480 350 Balance 480 350 Result Diagrams: 05/01/19 04:39 05/01/19 04:39 Additional Labs: Accuchecks 05/03/19 05/02/19 05/02/19 10:48 21:01 17:20 POC Glucose 259 H 235 H 137 H 05/02/19 11:31 POC Glucose 303 H EKG Reviewed by me: Yes ROS - Review of Systems Constitutional: denies: fever, chills, sweats, weakness, malaise, other Eyes: denies: pain, vision change, conjunctivae inflammation, eyelid inflammation, redness, other ENT: denies: ear pain, ear discharge, nose pain, nose discharge, nose congestion , mouth pain, mouth swelling, throat pain, throat swelling, other Respiratory: denies: cough, dry, shortness of breath, hemoptysis, SOB with excertion, pleuritic pain, sputum, wheezing, other Cardiovascular: denies: chest pain, palpitations, orthopnea, paroxysmal noc. dyspnea, edema, light headedness, other Gastrointestinal: denies: nausea, vomitting, abdominal pain, diarrhea, constipation, melena, hematochezia, other Genitourinary: denies: dysuria, frequency, incontinence, hematuria, retention, other Musculoskeletal: denies: neck pain, shoulder pain, arm pain, back pain, hand pain, leg pain, foot pain, other Skin: denies: rash, lesions, gt, bruising, other - Medication Medications: Active Medications Generic Name Dose Route Start Last Admin Trade Name Freq PRN Reason Stop Dose Admin Acetaminophen 650 mg 04/30/19 11:00 04/30/19 16:52 Tylenol PO 650 mg Q4H PRN Administration Headache/Fever/Mild Pain (1-3) Aspirin 81 mg 05/01/19 09:00 05/03/19 08:44 Ecotrin PO 81 mg DAILY SHERRY Administration Carvedilol 12.5 mg 04/30/19 17:00 05/03/19 08:44 Coreg PO 12.5 mg BID-WM SHERRY Administration Clopidogrel Bisulfate 75 mg 05/03/19 09:00 05/03/19 08:44 Plavix PO 75 mg DAILY SHERRY Administration Doxycycline Hyclate 100 mg 05/01/19 09:00 05/03/19 08:44 Vibramycin PO 100 mg BID SHERRY Administration Enoxaparin Sodium 0 mg 04/30/19 21:00 05/03/19 08:44 Lovenox SC 60 mg 0900,2100 SHERRY Administration Famotidine 20 mg 04/30/19 21:00 05/03/19 08:44 Pepcid PO 20 mg BID SHERRY Administration Insulin Glargine 25 units/ 0.25 mls @ 0 mls/hr 05/02/19 09:00 05/03/19 08:45 Miscellaneous Medication SC 0.25 mls QAM SHERRY Administration Insulin Human Lispro 0 units 04/30/19 12:07 05/02/19 11:39 Humalog SC 8 unit .MODERATE SLIDING SC PRN Administration Moderate Correctional Scale Ondansetron HCl 4 mg 04/30/19 11:00 05/01/19 10:02 Zofran IVP 4 mg Q6H PRN Administration Nausea/Vomiting Rosuvastatin Calcium 20 mg 04/30/19 21:00 05/02/19 21:01 Crestor PO 20 mg HS SHERRY Administration Sacubitril/Valsartan 1 tab 04/30/19 21:00 05/03/19 08:44 Entresto 49 Mg-51 Mg Tablet PO 1 tab BID SHERRY Administration Senna/Docusate Sodium 2 tab 04/30/19 11:00 05/02/19 21:00 Senokot S PO 2 tab BID PRN Administration Constipation Spironolactone 25 mg 05/01/19 08:00 05/03/19 08:44 Aldactone PO 25 mg QAM-WM [facility] Administration - Exam NAD, awake alert Eye: PERRL, anicteric sclera ENT: normocephalic atraumatic, no oropharyngeal lesions Neck: supple, symmetric, no JVD Heart: RRR, no murmur, no gallops, no rubs Respiratory: CTAB, no wheezes, no rales, no ronchi Gastrointestinal: soft, non-tender, non-distended, normal bowel sounds Extremities: no cyanosis, no clubbing, no edema Skin: normal turgor, no lesions, no rashes Neurological: CN's grossly intact, normal sensation to touch, no focal deficits Musculoskeletal: normal tone, normal strength, no muscle wasting Psychiatric: normal affect, normal behavior, A&O x 3 Hosp A/P (1) Chest pain Code(s): R07.9 - CHEST PAIN, UNSPECIFIED Status: Acute (2) Elevated troponin Code(s): R74.8 - ABNORMAL LEVELS OF OTHER SERUM ENZYMES Status: Acute (3) CKD (chronic kidney disease), stage II Code(s): N18.2 - CHRONIC KIDNEY DISEASE, STAGE 2 (MILD) Status: Chronic (4) Cardiomyopathy Code(s): I42.9 - CARDIOMYOPATHY, UNSPECIFIED Status: Chronic Qualifiers: Cardiomyopathy type: unspecified Qualified Code(s): I42.9 - Cardiomyopathy , unspecified (5) Chronic pain Code(s): G89.29 - OTHER CHRONIC PAIN Status: Chronic Qualifiers: Chronic pain type: other chronic pain Qualified Code(s): G89.29 - Other chronic pain (6) Chronic systolic heart failure, ACC/AHA stage C Code(s): I50.22 - CHRONIC SYSTOLIC (CONGESTIVE) HEART FAILURE Status: Chronic (7) Diabetes type 2, controlled Code(s): E11.9 - TYPE 2 DIABETES MELLITUS WITHOUT COMPLICATIONS Status: Chronic (8) HLD (hyperlipidemia) Code(s): E78.5 - HYPERLIPIDEMIA, UNSPECIFIED Status: Chronic (9) HTN (hypertension) Code(s): I10 - ESSENTIAL (PRIMARY) HYPERTENSION Status: Chronic (10) Obesity (BMI 30.0-34.9) Code(s): E66.9 - OBESITY, UNSPECIFIED Status: Chronic (11) Abnormal stress test Status: Acute - Plan old records reviewed/req pt changed her mind and now she wanted to stay for cardiac cath for abnormal stress test life vest arrangement before discharge medication reviewed as above symptomatic treatment Review of Systems - Review of Systems Eyes: negative: Pain, Vision Change, Conjunctivae Inflammation, Eyelid Inflammation, Redness, Other ENT: negative: Ear Pain, Ear Discharge, Nose Pain, Nose Discharge, Nose Congestion, Mouth Pain, Mouth Swelling, Throat Pain, Throat Swelling, Other Respiratory: negative: Cough, Dry, Shortness of Breath, Hemoptysis, SOB with Excertion, Pleuritic Pain, Sputum, Wheezing Cardiovascular: negative: chest pain, palpitations, orthopnea, paroxysmal nocturnal dyspnea, edema, light headedness, other Gastrointestinal: negative: Nausea, Vomiting, Abdominal Pain, Diarrhea, Constipation, Melena, Hematochezia, Other Genitourinary: negative: Dysuria, Frequency, Incontinence, Hematuria, Retention , Other Musculoskeletal: negative: Neck Pain, Shoulder Pain, Arm Pain, Back Pain, Hand Pain, Leg Pain, Foot Pain, Other Skin: negative: Rash, Lesions, Gt, Bruising, Other - Medications/Allergies Allergies/Adverse Reactions: Allergies Allergy/AdvReac Type Severity Reaction Status Date / Time asa fillers Allergy Uncoded 03/19/19 11:55 Medications: Current Medications Acetaminophen (Tylenol) 650 mg PO Q4H PRN PRN Reason: Headache/Fever/Mild Pain (1-3) Last Admin: 04/30/19 16:52 Dose: 650 mg Hydrocodone Bitart/Acetaminophen ([place] 5/325) 1 tab PO Q4H PRN PRN Reason: Moderate Pain (4-6) Albuterol/Ipratropium (Duoneb) 3 ml NEB TID PRN PRN Reason: SOB &/or Wheezing Aspirin (Ecotrin) 81 mg PO DAILY [facility] Last Admin: 05/03/19 08:44 Dose: 81 mg Bisacodyl (Dulcolax) 10 mg [place] DAILYPRN PRN PRN Reason: Constipation Calcium Carbonate (Tums) 1,000 mg PO Q4H PRN PRN Reason: Heartburn or Indigestion Carvedilol (Coreg) 12.5 mg PO BID-[facility] Last Admin: 05/03/19 08:44 Dose: 12.5 mg Clopidogrel Bisulfate (Plavix) 75 mg PO DAILY [facility] Last Admin: 05/03/19 08:44 Dose: 75 mg Dextrose/Water (Dextrose 50%) 25 gm SLOW IVP PRN PRN PRN Reason: Hypoglycemia Doxycycline Hyclate (Vibramycin) 100 mg PO BID [facility] Last Admin: 05/03/19 08:44 Dose: 100 mg Enoxaparin Sodium (Lovenox) 0 mg SC 0900,2100 [facility] Last Admin: 05/03/19 08:44 Dose: 60 mg Famotidine (Pepcid) 20 mg PO BID [facility] Last Admin: 05/03/19 08:44 Dose: 20 mg Glucagon (Glucagon) 1 mg IM PRN PRN PRN Reason: Hypoglycemia Guaifenesin (Robitussin Sf) 200 mg PO Q4H PRN PRN Reason: Cough Hydralazine HCl (Apresoline) 10 mg SLOW IVP Q4H PRN PRN Reason: SBP > 180 and HR < 70 Dextrose/Water (D5w) 1,000 mls @ 0 mls/hr IV .Q0M PRN PRN Reason: Hypoglycemia Insulin Glargine 25 units/ (Miscellaneous Medication) 0.25 mls @ 0 mls/hr SC QAM [facility] Last Admin: 05/03/19 08:45 Dose: 0.25 mls Insulin Human Lispro (Humalog) 0 units SC .MODERATE SLIDING SC PRN PRN Reason: Moderate Correctional Scale Last Admin: 05/02/19 11:39 Dose: 8 unit Insulin Human Lispro (Humalog) 0 units SC .BEDTIME SLIDING SC PRN PRN Reason: Bedtime Correctional Scale Loperamide HCl (Imodium) 2 mg PO PRN PRN PRN Reason: Diarrhea/Loose Stools Loratadine (Claritin) 10 mg PO DAILYPRN PRN PRN Reason: Sinus Symptoms Nitroglycerin (Nitrostat) 0.4 mg SL Q5MIN PRN PRN Reason: Chest Pain Ondansetron HCl (Zofran Odt) 4 mg PO Q6H PRN PRN Reason: Nausea/Vomiting Ondansetron HCl (Zofran) 4 mg IVP Q6H PRN PRN Reason: Nausea/Vomiting Last Admin: 05/01/19 10:02 Dose: 4 mg Rosuvastatin Calcium (Crestor) 20 mg PO [facility] Last Admin: 05/02/19 21:01 Dose: 20 mg Sacubitril/Valsartan (Entresto 49 Mg-51 Mg Tablet) 1 tab PO BID [facility] Last Admin: 05/03/19 08:44 Dose: 1 tab Senna/Docusate Sodium (Senokot S) 2 tab PO BID PRN PRN Reason: Constipation Last Admin: 05/02/19 21:00 Dose: 2 tab Sodium Chloride ([place] Nasal [place] 0.65%) 0 ml EA NARE QIDPRN PRN PRN Reason: Nasal Congestion Spironolactone (Aldactone) 25 mg PO QAM-[facility] Last Admin: 05/03/19 08:44 Dose: 25 mg Throat Lozenges (Cepastat Lozenges) 1 poli PO Q2H PRN PRN Reason: Sore Throat Zolpidem Tartrate (Ambien) 5 mg PO HSPRN PRN PRN Reason: Insomnia
[2019-05-03] MEDS: Rosuvastatin 20 MG TAB PO SCH (20:26)
[2019-05-04] MEDS: Aspirin 81 mg Enteric Coated Tablet PO SCH (08:20)
[2019-05-04] MEDS: Enoxaparin Sodium 60 MG/0.6 ML SYRINGE SC SCH ×2 (08:20→20:27)
[2019-05-04] MEDS: Sacubitril 49 MG/Valsartan 51 MG TABLET PO SCH ×2 (08:20→20:27)
[2019-05-04] MEDS: Doxycycline 100 MG CAP PO SCH ×2 (08:20→20:27)
[2019-05-04] MEDS: Carvedilol 6.25 MG TAB PO SCH ×2 (08:21→16:01)
[2019-05-04] MEDS: Famotidine 20 MG TAB PO SCH ×2 (08:21→20:27)
[2019-05-04] MEDS: Spironolactone 25 MG TAB PO SCH (08:21)
[2019-05-04] MEDS: Insulin Glargine 25 UNITS in Pre-Filled Syringe 1 EACH SC SCH (08:22)
[2019-05-04] MEDS: Clopidogrel Bisulfate 75 MG TAB PO SCH (08:22)
[2019-05-04] MEDS ORDERED: Communication Order-Pharmacy FS SCH (13:45)
[2019-05-04] MEDS: Rosuvastatin 20 MG TAB PO SCH (20:27)
--- NOTE | 2019-05-04 20:36 | PDOC.HOSPP ---
- Subjective Encounter Date: 05/04/19 Encounter Time: 11:15 Subjective: pt up in bed no complains - Objective Vital Signs & Weight: Vital Signs (12 hours) Temp Pulse Resp BP Pulse Ox 05/04/19 15:53 98.1 F 98 18 117/55 L 97 Weight Weight 203 lb 3.2 oz I&O: 05/03/19 05/04/19 05/05/19 06:59 06:59 06:59 Intake Total 1770 1000 Balance 1770 1000 Result Diagrams: 05/01/19 04:39 05/01/19 04:39 Additional Labs: Accuchecks 05/04/19 05/04/19 05/04/19 16:56 10:56 05:30 POC Glucose 158 H 271 H 150 H 05/03/19 05/03/19 20:12 05:08 POC Glucose 233 H 135 H ROS - Review of Systems Respiratory: denies: cough, dry, shortness of breath, hemoptysis, SOB with excertion, pleuritic pain, sputum, wheezing, other Cardiovascular: denies: chest pain, palpitations, orthopnea, paroxysmal noc. dyspnea, edema, light headedness, other Gastrointestinal: denies: nausea, vomitting, abdominal pain, diarrhea, constipation, melena, hematochezia, other - Medication Medications: Active Medications Generic Name Dose Route Start Last Admin Trade Name Freq PRN Reason Stop Dose Admin Acetaminophen 650 mg 04/30/19 11:00 04/30/19 16:52 Tylenol PO 650 mg Q4H PRN Administration Headache/Fever/Mild Pain (1-3) Aspirin 81 mg 05/01/19 09:00 05/04/19 08:20 Ecotrin PO 81 mg DAILY SHERRY Administration Carvedilol 12.5 mg 04/30/19 17:00 05/04/19 16:01 Coreg PO 12.5 mg BID-WM SHERRY Administration Clopidogrel Bisulfate 75 mg 05/03/19 09:00 05/04/19 08:22 Plavix PO 75 mg DAILY SHERRY Administration Doxycycline Hyclate 100 mg 05/01/19 09:00 05/04/19 20:27 Vibramycin PO 100 mg BID SHERRY Administration Enoxaparin Sodium 0 mg 04/30/19 21:00 05/04/19 20:27 Lovenox SC 05/04/19 21:30 60 mg 0900,2100 SHERRY Administration Famotidine 20 mg 04/30/19 21:00 05/04/19 20:27 Pepcid PO 20 mg BID SHERRY Administration Insulin Glargine 25 units/ 0.25 mls @ 0 mls/hr 05/02/19 09:00 05/04/19 08:22 Miscellaneous Medication SC 0.25 mls QAM SHERRY Administration Insulin Human Lispro 0 units 04/30/19 12:07 05/02/19 11:39 Humalog SC 8 unit .MODERATE SLIDING SC PRN Administration Moderate Correctional Scale Ondansetron HCl 4 mg 04/30/19 11:00 05/01/19 10:02 Zofran IVP 4 mg Q6H PRN Administration Nausea/Vomiting Rosuvastatin Calcium 20 mg 04/30/19 21:00 05/04/19 20:27 Crestor PO 20 mg HS SHERRY Administration Sacubitril/Valsartan 1 tab 04/30/19 21:00 05/04/19 20:27 Entresto 49 Mg-51 Mg Tablet PO 1 tab BID SHERRY Administration Senna/Docusate Sodium 2 tab 04/30/19 11:00 05/02/19 21:00 Senokot S PO 2 tab BID PRN Administration Constipation Spironolactone 25 mg 05/01/19 08:00 05/04/19 08:21 Aldactone PO 25 mg QAM-WM SHERRY Administration - Exam Neck: negative: supple, symmetric, no JVD, no thyromegaly, no lymphadenopathy, no carotid bruit, JVD Heart: negative: RRR, no murmur, no gallops, no rubs, normal peripheral pulses, irregular, diminshed peripheral pulses, murmur present, II/IV, III/IV Respiratory: negative: CTAB, no wheezes, no rales, no ronchi, normal chest expansion, no tachypnea, normal percussion, rales, rhonchi, tachypneic, wheezes Hosp A/P (1) NSTEMI (non-ST elevated myocardial infarction) Code(s): I21.4 - NON-ST ELEVATION (NSTEMI) MYOCARDIAL INFARCTION Status: Deleted (2) Diabetes type 2, controlled Code(s): E11.9 - TYPE 2 DIABETES MELLITUS WITHOUT COMPLICATIONS Status: Chronic (3) HLD (hyperlipidemia) Code(s): E78.5 - HYPERLIPIDEMIA, UNSPECIFIED Status: Chronic (4) HTN (hypertension) Code(s): I10 - ESSENTIAL (PRIMARY) HYPERTENSION Status: Chronic (5) Obesity (BMI 30.0-34.9) Code(s): E66.9 - OBESITY, UNSPECIFIED Status: Chronic (6) Pneumonia Code(s): J18.9 - PNEUMONIA, UNSPECIFIED ORGANISM Status: Deleted - Plan pt to undergo stress test today. I have educated her about smoking cessation. i will start her on doxy given her ct findings. She is very stressed about her stress test results. she was offered a nicotine patch but she refused. 05/05 pt initialled refused cardiac cath but now want to have it done.
[2019-05-05 04:59] VITALS: TEMP 97.8
[2019-05-05] MEDS ORDERED: CEFAZOLIN 2 GM in Premix Bag 1 BAG IVPB SCH (05:15)
[2019-05-05] MEDS ORDERED: Sodium Chloride 0.9% 1,000 ML IV SCH (06:00)
[2019-05-05] MEDS: Clopidogrel Bisulfate 75 MG TAB PO SCH (06:29)
[2019-05-05] MEDS: Doxycycline 100 MG CAP PO SCH (06:29)
[2019-05-05] MEDS: Aspirin 81 mg Enteric Coated Tablet PO SCH (06:29)
[2019-05-05] MEDS: Famotidine 20 MG TAB PO SCH (06:30)
[2019-05-05] MEDS: Carvedilol 6.25 MG TAB PO SCH ×2 (06:30→18:15)
[2019-05-05 09:03] LABS: Anion Gap 15 mmol/L (10-20); BUN (Urea Nitrogen) 8 mg/dL (9.8-20.1); Calc. Creatinine Clearance 143 mL/min (70-130); Calcium 9.5 mg/dL (7.8-10.44); Carbon Dioxide 22 mmol/L (22-29); Chloride 105 mmol/L (98-107); Estimated GFR-MDRD Greater than 90; Glucose 186 mg/dL (70-105); Sodium 138 mmol/L (136-145)
[2019-05-05] MEDS: Sacubitril 49 MG/Valsartan 51 MG TABLET PO SCH (10:42)
[2019-05-05] MEDS: Insulin Glargine 25 UNITS in Pre-Filled Syringe 1 EACH SC SCH (10:42)
[2019-05-05] MEDS ORDERED: Lidocaine 1% (PF) 30 ML VIAL ONE (10:54)
[2019-05-05] MEDS ORDERED: Fentanyl 100 MCG/2 ML VIAL ONE (11:17)
[2019-05-05] MEDS ORDERED: Midazolam HCl 2 mg/2 ml Vial ONE (11:17)
[2019-05-05] MEDS ORDERED: Heparin 10,000 UNITS/1 ML VIAL ONE (11:26)
[2019-05-05] MEDS ORDERED: Verapamil 5 MG/2 ML VIAL ONE (11:26)
[2019-05-05] MEDS ORDERED: Nitroglycerin 100MG/250ML BOT 250 ML ONE (11:26)
[2019-05-05] MEDS ORDERED: Acetaminophen/Codeine 30-300mg Tablet PO PRN (12:05)
[2019-05-05] MEDS: Spironolactone 25 MG TAB PO SCH (12:33)
[2019-05-05 18:15] VITALS: BP 119/66
--- NOTE | 2019-05-06 22:42 | EKG ---
Test Reason : Blood Pressure : / mmHG Vent. Rate : 090 BPM Atrial Rate : 090 BPM P-R Int : 142 ms QRS Dur : 080 ms QT Int : 392 ms P-R-T Axes : 048 047 052 degrees QTc Int : 479 ms Normal sinus rhythm Nonspecific T wave abnormality Prolonged QT Abnormal ECG When compared with ECG of 19-MAR-2019 06:41, ST no longer depressed in Inferior leads T wave inversion no longer evident in Inferior leads Nonspecific T wave abnormality now evident in Anterior leads Confirmed by Erasmo ALFONSO ([id number]) on 05/06/2019 10:42:01 PM Referred By: FLOYD Confirmed By:Erasmo ALFONSO
== END 2019-05-05 19:45 | disposition home or self-care (01) | DRG 281 ==
LOC: ERS 07:44 → ERHOLD 10:11 → OBSVTOIN 12:09 → 2NO 14:00
PROVIDERS: ADMIT Internal Medicine; ATTEND Internal Medicine
PROC: 4A023N7 Measurement of Cardiac Sampling and Pressure, Left Heart, Percutaneous Approach (ICD-10-PCS; principal; 2019-05-05)
PROC: B2151ZZ Fluoroscopy of Left Heart using Low Osmolar Contrast (ICD-10-PCS; 2019-05-05)
PROC: B2111ZZ Fluoroscopy of Multiple Coronary Arteries using Low Osmolar Contrast (ICD-10-PCS; 2019-05-05)
DX: I21.4 Non-ST elevation (NSTEMI) myocardial infarction (principal); I50.42 Chronic combined systolic (congestive) and diastolic (congestive) heart failure; I13.0 Hypertensive heart and chronic kidney disease with heart failure and stage 1 through stage 4 chronic kidney disease, or unspecified chronic kidney disease; I42.9 Cardiomyopathy, unspecified; J45.909 Unspecified asthma, uncomplicated; N18.2 Chronic kidney disease, stage 2 (mild); E11.22 Type 2 diabetes mellitus with diabetic chronic kidney disease; E66.9 Obesity, unspecified; E11.65 Type 2 diabetes mellitus with hyperglycemia; F17.210 Nicotine dependence, cigarettes, uncomplicated; E78.5 Hyperlipidemia, unspecified; Z87.01 Personal history of pneumonia (recurrent); Z79.899 Other long term (current) drug therapy; Z79.82 Long term (current) use of aspirin; Z68.34 Body mass index [BMI] 34.0-34.9, adult; Z79.4 Long term (current) use of insulin
CPT/HCPCS: 36415; 36416; 76942; 78452; 80048; 81001; 82550; 83735; 84484; 85025; 93005; 93010; 93017; 93458; 99152; 99153; A9500; C1769; J1644; J1650; J1815; J2001; J2250; J2405; J2785; J3010